=== PATIENT | female | born 2000 | race Caucasian/White ===

== ENCOUNTER 2020-10-13 22:19 | Emergency (ER) | payer MEDICAID, OTHER ==
[~2020-10-13] VITALS: Ht 152.4 cm; Wt 90.9 kg
[2020-10-13] MEDS ORDERED: JUNETAB PO (22:29)
[2020-10-13] MEDS ORDERED: LATU120T PO (22:29)
[2020-10-13] MEDS ORDERED: HYDR1TAB33 PO (22:29)
[2020-10-13] MEDS ORDERED: LEVO50TA5 PO (22:29)
[2020-10-13] MEDS ORDERED: DIAZ5TAB PO (22:29)
[2020-10-13] MEDS ORDERED: VENL75TA2 PO (22:29)
[2020-10-13] MEDS ORDERED: GLIP5TAB20 PO (22:29)
[2020-10-13] MEDS ORDERED: LOPI600T PO (22:29)
[2020-10-13] MEDS ORDERED: ABIL1TAB13 PO (22:29)
[2020-10-13 23:05] LABS: HEMATOCRIT 40.6 % (36.0-47.0); HEMOGLOBIN 12.9 g/dl (12.0-15.5); MEAN CORPUSCULAR HEMOGLOBIN 29.1 pg (27.0-33.0); MEAN CORPUSCULAR HGB CONC 31.8 g/dl (32.0-36.5); MEAN CORPUSCULAR VOLUME 91.6 fl (80.0-96.0); PLATELET COUNT, AUTOMATED 441 10^3/uL (150-450); RED BLOOD COUNT 4.43 10^6/uL (4.00-5.40); WHITE BLOOD COUNT 9.8 10^3/uL (4.0-10.0)
[2020-10-13 23:24] LABS: ATYPICAL LYMPH 4 % (0-5); BASOPHILS 1 % (0-1); EOSINOPHILS 3 % (0-3); LYMPHOCYTES 33 % (16-44); MONOCYTES 6 % (0-5); NEUTROPHILS 53 % (28-66); PLATELET ESTIMATE INCREASED (NORMAL)
[2020-10-13] MEDS ORDERED: GI COCKTAIL 50ML BTL(HYOSCYAMINE/MAALOX/LIDOCAINE VISCOUS)(1:3:1) PO ONE (23:30)
[2020-10-13] MEDS ORDERED: ONDANSETRON 4MG/2ML VIAL IV ONE (23:30)
[2020-10-13] MEDS ORDERED: NS 1,000 ML IV ONE (23:30)
[2020-10-13 23:34] LABS: ALBUMIN 4.2 GM/DL (3.2-5.2); ALT/SGPT 95 U/L (12-78); BILIRUBIN,DIRECT 0.2 MG/DL (0.0-0.2); BILIRUBIN,TOTAL 0.5 MG/DL (0.2-1.0); LIPASE 145 U/L (73-393); TOTAL PROTEIN 8.1 GM/DL (6.4-8.2)
--- NOTE | 2020-10-14 01:37 | REPVR ---
PROCEDURE INFORMATION: Exam: XR Abdomen Exam date and time: 10/14/2020 1:05 AM Age: 20 years old Clinical indication: Other: Luq pain TECHNIQUE: Imaging protocol: XR of the abdomen. Views: Frontal supine view of the abdomen. 1 View. COMPARISON: CT ABD PELVIS W/O CONTRAST 09/25/2015 2:33 AM FINDINGS: Gastrointestinal tract: Normal. No bowel dilation. Bones/joints: Unremarkable. IMPRESSION: No acute findings. Electronically signed by: Duncan Torrez On 10/14/2020 01:37:38 AM
[2020-10-14] MEDS ORDERED: PROM25TA12 PO (01:54)
--- NOTE | 2020-10-14 02:03 | REPVR ---
PROCEDURE INFORMATION: Exam: US Abdomen, Limited; Right Upper Quadrant Exam date and time: 10/13/2020 1:23 AM Age: 20 years old Clinical indication: Abdominal pain; Flank; Right upper quadrant (ruq); Additional info: Upper abd pain, post prandial. Elevated lfts TECHNIQUE: Imaging protocol: US abdomen. Real time ultrasound with image documentation. Limited exam focused on the right upper quadrant. COMPARISON: CR Abdomen,Flat Plate KUB 10/13/2020 11:41 PM FINDINGS: Liver: Fatty infiltration of the liver. Liver measures approximately 27 cm in the midclavicular plane. Gallbladder: Unremarkable gallbladder. No gallstones. No gallbladder wall thickening. Common bile duct: CBD measures 3.7 mm in caliber. Pancreas: Visualized pancreas is unremarkable. Right kidney: Right kidney measures 12.5 cm in length. No right hydronephrosis. Normal echogenicity. IMPRESSION: 1. Unremarkable gallbladder. 2. Fatty infiltration of the liver. 3. Hepatomegaly. Electronically signed by: Duncan Torrez On 10/14/2020 02:03:30 AM
[2020-10-14 02:06] VITALS: BP 117/72
[2020-10-15 10:53] LABS: HEPATITIS B SURFACE ANTIGEN NEGATIVE (NEGATIVE)
[2020-10-15 11:21] LABS: HEPATITIS C VIRUS ABY INDEX < 0.0 INDEX (<0.8)
[2020-10-15 11:22] LABS: HEPATITIS B CORE ANTIBODY IGM NEGATIVE (NEGATIVE)
[2020-10-15 12:24] LABS: HEPATITIS A ANTIBODY IGM NEGATIVE (NEGATIVE)
== END 2020-10-14 02:09 | disposition home or self-care (01) ==
LOC: M ED 22:19
DX: R16.0 Hepatomegaly, not elsewhere classified (principal); K76.0 Fatty (change of) liver, not elsewhere classified; R11.2 Nausea with vomiting, unspecified; K21.9 Gastro-esophageal reflux disease without esophagitis; E07.9 Disorder of thyroid, unspecified; F60.3 Borderline personality disorder; F17.200 Nicotine dependence, unspecified, uncomplicated
CPT/HCPCS: 74018; 76705; 80047; 80076; 83690; 84702; 85025; 86705; 86709; 86803; 87340; 96361; 96374; 99284; J2405

== ENCOUNTER 2020-10-19 21:34 | Emergency (ER) | payer OTHER ==
[~2020-10-19] VITALS: Ht 152.4 cm; Wt 91.0 kg
[~2020-10-19 21:34] MED LIST: ABIL1TAB13 PO; DIAZ5TAB PO; GLIP5TAB20 PO; HYDR1TAB33 PO; JUNETAB PO; LATU120T PO; LEVO50TA5 PO; LOPI600T PO; PROM25TA12 PO; VENL75TA2 PO
[2020-10-19 21:35] VITALS: BP 114/67
== END 2020-10-20 00:16 | disposition left against medical advice (07) ==
LOC: M ED 21:34
DX: Z53.21 Procedure and treatment not carried out due to patient leaving prior to being seen by health care provider (principal)

== ENCOUNTER 2020-10-22 19:29 | Emergency (ER) | payer OTHER ==
[~2020-10-22] VITALS: Ht 152.4 cm; Wt 90.1 kg
[2020-10-22] MEDS ORDERED: PANTOPRAZOLE 40MG VIAL (C9113 PER 1) IV ONE (22:20)
[2020-10-22] MEDS ORDERED: GI COCKTAIL 50ML BTL(HYOSCYAMINE/MAALOX/LIDOCAINE VISCOUS)(1:3:1) PO ONE (22:20)
[2020-10-22] MEDS ORDERED: NS 1,000 ML IV ONE (22:20)
[2020-10-22] MEDS ORDERED: ONDANSETRON 4MG/2ML VIAL IV ONE (22:20)
[2020-10-22 22:44] LABS: BASO # 0.1 10^3/uL (0.0-0.2); BASO % 0.5 % (0.0-1.0); EOS # 0.2 10^3/uL (0.0-0.5); HEMATOCRIT 39.7 % (36.0-47.0); HEMOGLOBIN 12.8 g/dl (12.0-15.5); LYMPH % 47.6 % (24.0-44.0); MEAN CORPUSCULAR HEMOGLOBIN 29.7 pg (27.0-33.0); MEAN CORPUSCULAR HGB CONC 32.2 g/dl (32.0-36.5); MEAN CORPUSCULAR VOLUME 92.1 fl (80.0-96.0); MONO # 0.6 10^3/uL (0.0-0.8); MONO % 6.1 % (2.0-8.0); NEUTROPHILS # 4.6 10^3/uL (1.5-8.5); NEUTROPHILS % 43.4 % (36.0-66.0); PLATELET COUNT, AUTOMATED 446 10^3/uL (150-450); RED BLOOD COUNT 4.31 10^6/uL (4.00-5.40); WHITE BLOOD COUNT 10.5 10^3/uL (4.0-10.0)
[2020-10-22 23:12] LABS: BILIRUBIN,DIRECT 0.1 MG/DL (0.0-0.2); BILIRUBIN,TOTAL 0.3 MG/DL (0.2-1.0); TOTAL PROTEIN 7.9 GM/DL (6.4-8.2)
[2020-10-22 23:42] LABS: HEMOGLOBIN A1c 7.2 %
[2020-10-23] MEDS ORDERED: KETOROLAC 30 MG/ML 1ML VIAL IV ONE
--- NOTE | 2020-10-23 00:33 | REPVR ---
PROCEDURE INFORMATION: Exam: US Abdomen, Limited; Right Upper Quadrant Exam date and time: 10/22/2020 11:44 PM Age: 20 years old Clinical indication: Abdominal pain; Colic; Additional info: Post prandial nausea and vomiting TECHNIQUE: Imaging protocol: US abdomen. Real time ultrasound with image documentation. Limited exam focused on the right upper quadrant. COMPARISON: 1. GALLBLADDER US 10/14/2020 1:[address] ABD PELVIS W/O CONTRAST 09/25/2015 2:33:20 AM FINDINGS: Liver: The echogenicity of the liver is increased, which is compatible with fatty liver infiltration. No liver lesion is identified from the images obtained. The contour of the liver is smooth. Gallbladder: The gallbladder is normal in appearance. No stones, masses, gallbladder wall thickening, or pericholecystic fluid are noted. No sonographic Boggs's sign was reported by the certified neurodiagnostic technologist. Common bile duct: The common bile duct is normal in caliber and at the level of the jamie hepatis measures 4 mm. Pancreas: The imaged portion of the pancreas is unremarkable. The tail of pancreas is obscured by gas in the stomach and bowel. Right kidney: The right kidney is normal in appearance and measures 12.8 cm in length. There is no renal cortical thinning. The renal cortical echogenicity is within normal limits. No renal lesion is seen. There is no hydronephrosis. No obvious stones are seen in the renal collecting system. Intraperitoneal space: No free fluid is seen from the images obtained. IMPRESSION: 1. Normal gallbladder. 2. Fatty liver. 3. No right hydronephrosis. Electronically signed by: Jose Romo On 10/23/2020 00:34:20 AM
[2020-10-23] MEDS ORDERED: ONDA4TAB6 PO (00:34)
[2020-10-23] MEDS ORDERED: KETO10TAB PO (00:34)
[2020-10-23 00:41] VITALS: BP 111/55
== END 2020-10-23 00:50 | disposition home or self-care (01) ==
LOC: M ED 19:29
DX: R11.2 Nausea with vomiting, unspecified (principal); R10.13 Epigastric pain; E11.9 Type 2 diabetes mellitus without complications; K21.9 Gastro-esophageal reflux disease without esophagitis; J45.909 Unspecified asthma, uncomplicated; E03.9 Hypothyroidism, unspecified; K76.0 Fatty (change of) liver, not elsewhere classified; Z79.84 Long term (current) use of oral hypoglycemic drugs; Z79.3 Long term (current) use of hormonal contraceptives; Z79.899 Other long term (current) drug therapy
CPT/HCPCS: 76705; 80047; 80076; 81001; 83036; 83690; 84702; 85025; 96361; 96374; 96375; 99284; C9113; J1885; J2405

== ENCOUNTER → 2021-02-22 | Outpatient (REF) | payer OTHER ==
[~2021-02-22] MED LIST changes: +KETO10TAB PO; +ONDA4TAB6 PO
== END ==
LOC: M WUC 19:52
PROVIDERS: ATTEND Physician Assistant
DX: R10.84 Generalized abdominal pain (principal)

== ENCOUNTER 2021-05-20 15:27 | Emergency (ER) | payer OTHER ==
[~2021-05-20] VITALS: Ht 152.4 cm; Wt 84.1 kg
--- OUTSIDE RECORDS SUMMARY | 2021-05-20 15:38 | CCD ---
Author Author [facility] Organization [facility] Address [address] [place], [place] [id number] Phone Care Team Providers Care Ecommerce Marketing Specialist Name Role Phone HAROLDO ZACARIAS Unavailable Allergies, Adverse Reactions, Alerts No Known Drug Allerg ies 09/27/2020 Medications * Continue: * HAROLDO BELTRAN * Zofran 4 mg tablet , Take 1 tablet orally Three times a day NEEDED 03/08/2021 * Discontinued: * WINDY LONDON LPN * LaMICtaL 100 mg tablet 03/08/2021 * Latuda 120 mg tablet 03/08/2021 * metFORMIN 500 mg tablet 03/08/2021 * gabapentin 600 mg tablet 03/08/2021 * naproxen 375 mg tablet 03/08/2021 * cyclobenzaprine 5 mg tablet 03/08/2021 * Pre-existing: * Valium 10 mg tablet * levothyroxine 75 mcg tablet * glipiZIDE ER 10 mg tablet, extended release 24 hr Problems Addressed During This Encounter Unspecified abdominal pain (R10.9) 2020 Contact with and (suspected) exposure to other viral communicable diseases (Z20.828) 03/08/2021 Nausea with vomiting, unspecified (R11.2 ) 03/08/2021 Diarrhea, unspecified (R19.7) 03/08/2021 Resolved: Nausea (R11.0) 03/08/2021 Myalgia, unspecified site (M79.10) 03/08/2021 Encounter for observation for suspected exposure to other biological agents ruled out (Z03.818) 03/08/2021 Low back pain (M54.5) 03/08/2021 Results Leukocytes: Trace 09/27/2020 Nitrite: Negative 09/27/2020 Urobilinogen: Negative 09/27/2020 Protein: Trace 09/27/2020 pH: 6.0 09/27/2020 Blood (Urine): Negative 09/27/2020 Specific [place]: 1.015 09/27/2020 Ketone: Negative 09/27/2020 Bilirubin: Negative 09/27/2020 Glucose: Negative 09/27/2020 WBC: 8.9 10*3/uL 09/27/2020 RBC: 4.22 10*6/uL 09/27/2020 HGB: 12.8 g/dL 09/27/2020 HCT: 37 % 09/27/2020 MCV: 87.8 fL 09/27/2020 MCH: 30.4 pg 09/27/2020 MCHC: 34.6 g/dL 09/27/2020 RDW: 12.4 % 09/27/2020 PLT: 429 10*3/uL 09/27/2020 MPV: 9.2 fL 09/27/2020 NEUT %: 49.1 % 09/27/2020 LYMPH %: 42.3 % 09/27/2020 MONO %: 5.6 % 09/27/2020 EOS %: 2.3 % 09/27/2020 BASO %: 0.7 % 09/27/2020 NEUT #: 4.4 10*3/uL 09/27/2020 LYMPH #: 3.8 10*3/uL 09/27/2020 MONO #: 0.5 10*3/uL 09/27/2020 EOS #: 0.2 10*3/uL 09/27/2020 BASO #: 0.1 10*3/uL 09/27/2020 SODIUM: 133 mmol/L 09/27/2020 Potassium: 4.6 mmol/L 09/27/2020 CHLORIDE: 100 mmol/L 09/27/2020 CO2: 23 mmol/L 09/27/2020 ANION GAP: 10 mmol/L 09/27/2020 UREA NITROGEN: 7 mg/dL 09/27/2020 Creatinine: 0.67 mg/dL 09/27/2020 BUN/CREAT RATIO: 10.4 RATIO 09/27/2020 Glucose: 200 mg/dL 09/27/2020 CALCIUM: 9.6 mg/dL 09/27/2020 TOTAL PROTEIN: 7.7 g/dL 09/27/2020 ALBUMIN: 3.8 g/dL 09/27/2020 GLOBULIN: 3.9 g/dL 09/27/2020 ALB/GLOB RATIO: 1 RATIO 09/27/2020 ALKALINE PHOSPHATASE: 82 U/L 09/27/2020 BILIRUBIN,TOTAL: 0.3 mg/dL 09/27/2020 AST (SGOT): 86 U/L 09/27/2020 ALT (SGPT): 88 U/L 09/27/2020 GFR : >60 09/27/2020 GFR ( AMER): >60 09/27/2020 CK: 67 U/L 09/27/2020 LIPASE: 123 U/L 09/27/2020 Chief Complaint Patient was screened for Covid 19 is neg ative by PCRExam is nonrevealingMedicated with Zofran and symptoms improved significantlyTaking fluids wellWe will get labsIf abnormal consider gallbladder ultrasoundCollect stool sample and send for analysis nausea and vominting Nonspecific symptomsElevated blood sugar Urinalysis is as notedEKG is nondiagnosticChest x-ray negativeLabs obtainedUrine culture sentCovid test negativeFlu test negativeHas an appointment with primary care on ThursdayThe low back pain certainly could be unrelated so I have ordered naproxen and FlexerilShe will return here or go to the hospital for any worsening symptoms hx of dm,blurry vision,back ache,pain do wn back of left leg Procedures Performed and Ordered Today * URINALYSIS NONAUTO W/O SCOPE 09/27/2020 * INFLUENZA ASSAY W/OPTIC 09/27/2020 * INFECTIOUS AGENT ANTIGEN DETECTION 09/27/2020 * ECG COMPLETE 09/27/2020 * ROUTINE VENIPUNCTURE 09/27/2020 * COVID PCR 03/08/2021 * INFECTIOUS AGENT DETECTION COMPLETED WITHIN 2 DAYS 03/08/2021 * ROUTINE VENIPUNCTURE 03/08/2021 * * Lab: Collected Date 09/27/2020 1533 09/27/2020 CBCDIFF 09/27/2020 CMP 09/27/2020 LIPASE 09/27/2020 ASSAY CK (CPK) 09/27/2020 URINE CULTURE 09/27/2020 GLUCOSE BLOOD TEST 09/27/2020 Collected Date 03/08/2021 1800 03/08/2021 CBCDIFF 03/08/2021 CMP 03/08/2021 LIPASE 03/08/2021 Collected Date 03/08/2021 C. DIFF TOXIN B BY PCR 03/08/2021 ENTERIC PATHOGENS BY 03/08/2021 GIARD/CRYPTOSP EXAM OAPEIA 03/08/2021 Imaging: CHEST XRAY 2 VIEW 09/27/2020 Injection: ONDANSETRON ORAL 4MG 03/08/2021 Vital signs Body Temperature: Heart Rate: Respiratory Rate: BP: Height: Weight: BMI: O2 Percentage BldC Oximetry : Inhaled Oxygen Concentration: 97.6F 03/08/2021 100 beats per minute 03/08/2021 18 breaths per minute 03/08/2021 116/7 0 mmHg 03/08/2021 5ft 03/08/2021 198lbs 03/08/2021 38.665 03/08/2021 97% 03/08/2021 21% 03/08/2021 Immunizations Social History Smoking Status: Never smoker. 03/08/2021 Reason for Referral Functional Status Plan of Treatment Procedures Scheduled: Collected Date 03/08/2021 CBCDIFF 03/08/2021 CMP 03/08/2021 LIPASE 03/08/2021 Collected Date 03/08/2021 C. DIFF TOXIN B BY PCR 03/08/2021 ENTERIC PATHOGENS BY 03/08/2021 GIARD/CRYPTOSP EXAM OAPEIA 03/08/2021 Appointments Sched ed: September, 3:00 PM, HAROLDO BELTRAN Monday, March 08, 2021, 11:10 PM, Visits Covid Instructions: BRAT diet includes: Bananas, Rice, Apple Sauce, Bowler <Follow up with primary care> We will call with lab and/or xray results If your symptoms worsen, go to the Emergency Room. <Follow up with primary care> We will call with lab and/or xray results If your symptoms worsen, go to the Emergency Room. Payers Insurance Policy Type Po licy ID Relation Subscriber Expi ration [facility] [employer] C ommercial Insurance [id number] Self CED BAH [facility] Commercial Insurance [id number] Self CED BAH 09/03/2020 Encounters OFFICE/OUTPATIENT SIT, EST 03/08/2021 Diagnoses Contact with and (suspected) exposure to other viral communicable diseases Nausea with vomiting, unspecified Diarrhea, unspecified Unspecified abdominal pain OFFICE/OUTPATIENT SIT, NEW 09/27/2020 Diagnoses Unspecified abdominal pain Nausea Myalgia, unspecified site Encounter for observation for suspected exposure to other biological agents ruled out Low back pain
--- OUTSIDE RECORDS SUMMARY | 2021-05-20 15:38 | CCD | Continuity of Care Document ---
Author Author Antonella MINA MD Organization Unknown Address [address] [facility], [address] [place] [address] Phone [phone] Care Team Providers Care Release Engineer Name Role Phone Misael Patel MD AUTM [phone] Edward Mina MD AUTM [phone] Problems Active Problems Provider Date Anxiety Onset: Moderate recurrent major depression Sinan Garnica MD Onse t: 11/07/2019 Body mass index 30+ - obesity Edward Mina MD Onset: 01/2020 Glycosuria Edward Mina MD Onset: 06/20/2020 Type 2 diabetes mellitus Edward Mina MD Onset: 07/03/20 20 Hypothyroidism Edward Mina MD Onset: 07/03/2020 Abnormal liver function Edward Mina MD Onset: 0 Hyperlipidemia Edward Mina MD Onset: 07/03/2020 Adult health examination Edward Mina MD Onset: 10/17/19 21 Gastritis Edward Mina MD Onset: 10/24/2020 Social History Type Date Description Comments Sex Unknown ETOH Use Denies alcohol use Tobacco Use Start: Unknown End: Unknown Patient is a former smoker Recreational Drug Use Denies Drug Use Smoking Status Reviewed: 09/26/19 Patient is a former smoker Exercise Type/Frequency Does not exercise Allergies, Adverse Reactions, Alerts Description No Known Drug Allergies Medications Active Medications SIG Qnty Indications Ordering Provide r Date Levothyroxine Sodium 75mcg Capsule s 1 daily 30caps Edward Mina MD 12/25/2020 Glipizide ER 10mg Tablets ER 24HR 1 tablet b.i.d. 60tabs E11.9 Edward Mina MD 12/25/2020 Onetouch Ultrasoft Lancets Misc test twice a day 200units Edward Mina MD 07/03/2020 Onetouch Ultra Strips test twice a day 150units E11.9 Edward Mina MD 07/03/2020 Onetouch Ultra 2 w/Device Kit as directed 1units Edward Mina MD 07/03/2020 June07/25 1-20mg-mcg Tablets daily Unknown 12/09/2018 Multi Vitamin Daily Tablets 1 by mouth every day Unknown Valium 5mg Tablets Take 0.5mg (2.5mg total) by mouth 2 times daily Edward Mina MD History Medications Glipizide 10mg Tablets 1 by mouth Once a day for diabetic control E11.9 Edward Mina MD 12/05 - 12/25/2020 Risperidone 1mg Tablets 1 tab 2 times Daily 30tabs Edward Mina MD 12/25/2020 - 04/03/2021 Pantoprazole Sodium 40mg Tablets D R 1 by mouth In the morning and at night for 1 month then p.r.n. 60tabs K2 9.70 Edward Mina MD 10/24/2020 - 04/03/2021 Immunizations CPT Code Status Date Vaccine Lot # [id number] Given 04/05/2019 Influenza 36 Mos And Older Vital Signs Date Vital Result Comment 04/03/2021 1:40pm BP Systolic 102 mmHg BP Diastolic 80 mmHg Heart Rate 111 /min Body Temperature 97.0 F Height 60 inches 5'0" Weight 188.38 lb Weight 85.447 kg [place] Body Weight 100 lb BMI (Body Mass Index) 36.8 kg/m2 O2 % BldC Oximetry 98 % Pain Level 0 12/25/2020 8:59am BP Systolic 112 mmHg BP Diastolic 74 mmHg Heart Rate 102 /min Body Temperature 97.9 F Height 60 inches 5'0" Weight 197.12 lb Weight 89.416 kg [place] Body Weight 100 lb BMI (Body Mass Index) 38.5 kg/m2 O2 % BldC Oximetry 98 % Pain Level 4 Results Test Acquired Date Facility Test Result H/L Range Note Xray 04/03/[address] [place] [address] [phone] CT Abdomen W Contrast <pending> Laboratory test finding 03/13/[address] [phone] Glycosylated Hgba1c 7.4 % High 4.1-6.5 1 H Pylori AB G/A/M Serum 03/13/[address] [phone] H pylori IgG Ab,S 0.10 0.00-0.79 2 H pylori IgA Ab,S <9.0 units 0.0-8.9 3 H pylori IgM Ab,S <9.0 units 0.0-8.9 4 Celiac Disease Comprehensive 03/13/[address] [phone] Gliadin(Deam) Ab,IgA,S 2 units 0-19 5 Gliadin(Deam) Ab IgG,S 1 units 0-19 6 tTransglutaminase IgA,S <2 U/mL 0-3 7 tTransglutaminase IgG,S <2 U/mL 0-5 8 Endomysial Ab, IgA,S Negative Negative IgA, Qn,S 93 mg/dL 87-352 Laboratory test finding 03/13/[address] [phone] TSH 2.926 uIU/ML Normal 0.470-4.200 9 CBC W/Auto Diff 03/13/[address] [phone] White Blood Count 8.58 10^3/uL Normal 4.00-10.50 Red Blood Count 4.65 10^6/uL Normal 3.90-5.20 Hemoglobin 13.7 g/dL Normal 11.5-15.6 Hematocrit 42.2 % Normal 35.0-46.0 MCV 90.8 FL Normal 80.0-100.0 MCH 29.5 pg Normal 27.0-34.0 MCHC 32.5 g/dL Normal 32-36 RDW 11.9 % Normal 11.5-14.5 Platelet Count 414 10^3/uL High 130-400 MPV 11.3 FL Normal 8.7-13.2 Gran % (Auto) 47.5 % Normal 42.0-75.0 Lymph % (Auto) 45.3 % Normal 20.0-51.0 [place] % (Auto) 4.3 % Normal 2.0-15.0 Eos % (Auto) 2.3 % Normal 0.0-11.0 Baso % (Auto) 0.3 % Normal 0.0-2.0 Ig % (Auto) 0.3 % 1.00-5.00 Ig # (Auto) 0.0 10^3/uL <0.5 Gran # (Auto) 4.06 10^3/uL Normal 1.50-6.50 Lymph # (Auto) 3.9 k/uL Normal 1.0-5.0 [place] # (Auto) 0.37 k/uL Normal 0.20-1.50 Eos # (Auto) 0.20 10^3/uL Normal 0.00-1.10 Baso # (Auto) 0.03 10^3/uL Normal 0.00-0.20 Lipid Panel 03/13/[address] [phone] Triglycerides 454 mg/dL High 45-150 Cholesterol 358 mg/dL High 125-200 LDL Cholesterol TNP mg/dL 50-130 10 HDL Cholesterol 40 mg/dL Normal 32-96 Chol/HDL Ratio TNP 0-4.3 11 CMP W GFR 03/13/[address] [phone] Sodium 140 mEq/L Normal 135-145 Potassium 4.1 mEq/L Normal 3.5-5.3 Chloride 101 mEq/L Normal 94-110 Carbon Dioxide 27 mEq/L Normal 22-33 Anion Gap 16 Normal 5-16 Blood Urea Nitro 6 mg/dL Low 7-25 Creatinine 0.6 mg/dL Normal 0.6-1.4 GFR > 90.0 mL/min 12 BUN/Creat Ratio 10 Normal 8-36 Glucose 125 mg/dL High 70-100 CA 10.4 mg/dL Normal 8.7-10.5 Bilirubin,Total 0.4 mg/dL Normal 0.1-1.3 Ast 253 U/L High 5-40 Alt 193 U/L High 5-48 Alkaline Phosphatase 101 U/L Normal 40-140 Total Protein 7.9 g/dL Normal 5.9-8.3 Albumin 5.2 g/dL High 3.0-5.1 Globulin 2.7 g/dL Normal 1.5-3.5 Alb/Glob Ratio 1.9 g/dL Normal 1.0-3.0 Urinalysis 03/13/[address] [phone] Color,Ur YELLOW Yellow Appearance,Ur CLEAR Clear PH,Ur 6.0 5.0-8.0 Specific [place],Ur 1.008 Normal 1.002-1.035 Protein,Ur NEGATIVE mg/dL Negative Glucose, Ur NEGATIVE mg/dL Negative Ketones,Ur TRACE mg/dL Negative Occult Blood,Ur NEGATIVE Negative Nitrate,Ur NEGATIVE Negative Leukocyte Esterase ,Ur NEGATIVE Negative Bilirubin,Ur NEGATIVE Negative Urobilinogen,Ur 0.2-1.0 EUMG/DL Neg-0-1.0 Free T4 And Total T4 03/13/[address] [phone] Free T4 (Free Thyroxine) 1.48 ng/dL Normal 0.76-1. 78 T4 (Thyroxine) 18.2 g/dL High 4.5-10.9 Laboratory test finding 11/27/[address] [phone] Covid 19 Rheonix NOT-DETECTED Notdetected 13 CMP W GFR 11/27/[address] [phone] Sodium 135 mEq/L Normal 135-145 Potassium 4.1 mEq/L Normal 3.5-5.3 Chloride 101 mEq/L Normal 94-110 Carbon Dioxide 26 mEq/L Normal 22-33 Anion Gap 12 Normal 5-16 Blood Urea Nitro 14 mg/dL Normal 7-25 Creatinine 0.8 mg/dL Normal 0.6-1.4 GFR > 90.0 mL/min 14 BUN/Creat Ratio 17 Normal 8-36 Glucose 235 mg/dL High 70-100 CA 10.2 mg/dL Normal 8.7-10.5 Bilirubin,Total 0.4 mg/dL Normal 0.1-1.3 Ast 136 U/L High 5-40 Alt 151 U/L High 5-48 Alkaline Phosphatase 102 U/L Normal 40-140 Total Protein 7.7 g/dL Normal 5.9-8.3 Albumin 5.7 g/dL High 3.0-5.1 Globulin 2.0 g/dL Normal 1.5-3.5 Alb/Glob Ratio 2.9 g/dL Normal 1.0-3.0 CBC W/Auto Diff 11/27/[address] [phone] White Blood Count 15.77 10^3/uL High 4.00-10.50 Red Blood Count 4.79 10^6/uL Normal 3.90-5.20 Hemoglobin 14.1 g/dL Normal 11.5-15.6 Hematocrit 43.5 % Normal 35.0-46.0 MCV 90.8 FL Normal 80.0-100.0 MCH 29.4 pg Normal 27.0-34.0 MCHC 32.4 g/dL Normal 32-36 RDW 12.2 % Normal 11.5-14.5 Platelet Count 498 10^3/uL High 130-400 MPV 11.2 FL Normal 8.7-13.2 Gran % (Auto) 71.5 % Normal 42.0-75.0 Lymph % (Auto) 23.7 % Normal 20.0-51.0 [place] % (Auto) 3.7 % Normal 2.0-15.0 Eos % (Auto) 0.1 % Normal 0.0-11.0 Baso % (Auto) 0.4 % Normal 0.0-2.0 Ig % (Auto) 0.6 % 1.00-5.00 Ig # (Auto) 0.1 10^3/uL <0.5 Gran # (Auto) 11.28 10^3/uL High 1.50-6.50 Lymph # (Auto) 3.7 k/uL Normal 1.0-5.0 [place] # (Auto) 0.58 k/uL Normal 0.20-1.50 Eos # (Auto) 0.02 10^3/uL Normal 0.00-1.10 Baso # (Auto) 0.06 10^3/uL Normal 0.00-0.20 Laboratory test finding 11/27/[address] [phone] [place] 0.6 mEq/L Normal 0.5-1.5 Emergency Drug Screen 11/27/[address] [phone] Opiate Screen NEG Negative 15 Barbiturate Screen NEG Negative 16 Phencyclidine Screen NEG Negative 17 Amphetamine Screen NEG Negative 18 Benzodiazepine Screen POS Negative 19 Cocaine Screen NEG Negative 20 Cannabinoid Screen NEG Negative 21 Heroin Screen NEG Negative 22 Urinalysis 11/27/[address] [phone] Color,Ur YELLOW Yellow Appearance,Ur CLEAR Clear PH,Ur 6.0 5.0-8.0 Specific [place],Ur 1.016 Normal 1.002-1.035 Protein,Ur NEGATIVE mg/dL Negative Glucose, Ur NEGATIVE mg/dL Negative Ketones,Ur NEGATIVE mg/dL Negative Occult Blood,Ur NEGATIVE Negative Nitrate,Ur NEGATIVE Negative Leukocyte Esterase ,Ur NEGATIVE Negative Bilirubin,Ur NEGATIVE Negative Urobilinogen,Ur 0.2-1.0 EUMG/DL Neg-0-1.0 Respiratory PNL Covid Only 11/14/[address] [phone] Adenovirus Not Detected NotDetected Coronavirus 229E Not Detected NotDetected 23 Coronavirus Hku1 Not Detected NotDetected 24 Coronavirus NL63 Not Detected NotDetected 25 Coronavirus Oc43 Not Detected NotDetected 26 Human Metapneumovirus Not Detected NotDetected Human Rhinovirus/ENT Not Detected NotDetected Influenza A Not Detected NotDetected Influenza B Not Detected NotDetected Parainfluenza Virus 1 Not Detected NotDetected Parainfluenza Virus 2 Not Detected NotDetected Parainfluenza Virus 3 Not Detected NotDetected Parainfluenza Virus 4 Not Detected NotDetected Respiratory Syncy Vir Not Detected NotDetected Bordetella Parapertus Not Detected NotDetected Bordetella Pertussis Not Detected NotDetected Chlamydia Pneumoniae Not Detected NotDetected Mycoplasma Pneumoniae Not Detected NotDetected 27 Coronavirus 2 (Sars-CoV-2) NOT-DETECTED Notdetected 28 CBC W/Auto Diff 11/14/[address] [phone] White Blood Count 10.21 10^3/uL Normal 4.00-10.50 Red Blood Count 4.60 10^6/uL Normal 3.90-5.20 Hemoglobin 13.4 g/dL Normal 11.5-15.6 Hematocrit 41.4 % Normal 35.0-46.0 MCV 90.0 FL Normal 80.0-100.0 MCH 29.1 pg Normal 27.0-34.0 MCHC 32.4 g/dL Normal 32-36 RDW 13.2 % Normal 11.5-14.5 Platelet Count 429 10^3/uL High 130-400 MPV 10.6 FL Normal 8.7-13.2 Gran % (Auto) 61.5 % Normal 42.0-75.0 Lymph % (Auto) 30.7 % Normal 20.0-51.0 [place] % (Auto) 4.5 % Normal 2.0-15.0 Eos % (Auto) 2.4 % Normal 0.0-11.0 Baso % (Auto) 0.4 % Normal 0.0-2.0 Ig % (Auto) 0.5 % 1.00-5.00 Ig # (Auto) 0.1 10^3/uL <0.5 Gran # (Auto) 6.29 10^3/uL Normal 1.50-6.50 Lymph # (Auto) 3.1 k/uL Normal 1.0-5.0 [place] # (Auto) 0.46 k/uL Normal 0.20-1.50 Eos # (Auto) 0.24 10^3/uL Normal 0.00-1.10 Baso # (Auto) 0.04 10^3/uL Normal 0.00-0.20 Laboratory test finding 11/14/[address] [phone] Blood Alcohol < 0.03 % <0.03 29 CMP W GFR 11/14/[address] [phone] Sodium 138 mEq/L Normal 135-145 Potassium 3.8 mEq/L Normal 3.5-5.3 Chloride 104 mEq/L Normal 94-110 Carbon Dioxide 25 mEq/L Normal 22-33 Anion Gap 13 Normal 5-16 Blood Urea Nitro 9 mg/dL Normal 7-25 Creatinine 0.7 mg/dL Normal 0.6-1.4 GFR > 90.0 mL/min 30 BUN/Creat Ratio 12 Normal 8-36 Glucose 222 mg/dL High 70-100 CA 9.9 mg/dL Normal 8.7-10.5 Bilirubin,Total 0.4 mg/dL Normal 0.1-1.3 Ast 205 U/L High 5-40 Alt 170 U/L High 5-48 Alkaline Phosphatase 104 U/L Normal 40-140 Total Protein 7.1 g/dL Normal 5.9-8.3 Albumin 5.2 g/dL High 3.0-5.1 Globulin 1.9 g/dL Normal 1.5-3.5 Alb/Glob Ratio 2.7 g/dL Normal 1.0-3.0 Laboratory test finding 11/14/[address] [phone] Salicylate < 3.0 mg/dL Normal 2.8-20.0 31 Acetaminophen < 2.0 UG/ML Low 10-30 32 Lipid Panel 11/14/[address] [phone] Triglycerides 522 mg/dL High 45-150 Cholesterol 376 mg/dL High 125-200 LDL Cholesterol TNP mg/dL 50-130 33 HDL Cholesterol 42 mg/dL Normal 32-96 Chol/HDL Ratio TNP 0-4.3 34 Laboratory test finding 11/14/[address] [phone] Folate 13.05 NG/ML Normal 3.40-24.00 35 Vitamin D,25-Hydroxy 8.8 ng/ml Low 30-100 36 Free T4 (Free Thyroxine) 1.45 ng/dL Normal 0.76-1.78 37 TSH 3.610 uIU/ML Normal 0.470-4.200 38 Glycosylated Hgba1c 7.3 % High 4.1-6.5 39 HP5+Havigm+Hbcigm,S 11/14/[address] [phone] Hepatitis A Antibody, IgM,S Negative Nega tive Hepatitis A Antibody, Total,S Positive Abnormal Negative Hepatitis B Surf Antigen SCRN Negative Negative Hepatitis B Core Antibody,Igm Negative Negative Hep B Core Antibody,Total Negative Negative Hepatitis B Surface Antibody Non Reactive . 40 HCV Ab,S <0.1 s/coratio 0.0-0.9 HCV Comment (SEE NOTE) 41 Laboratory test finding 11/14/[address] [phone] HCG Quantitative < 3 mIU/ml 42 Urinalysis 11/14/[address] [phone] Color,Ur YELLOW Yellow Appearance,Ur CLEAR Clear PH,Ur 6.0 5.0-8.0 Specific [place],Ur 1.009 Normal 1.002-1.035 Protein,Ur NEGATIVE mg/dL Negative Glucose, Ur NEGATIVE mg/dL Negative Ketones,Ur NEGATIVE mg/dL Negative Occult Blood,Ur NEGATIVE Negative Nitrate,Ur NEGATIVE Negative Leukocyte Esterase ,Ur TRACE Abnormal Negative Bilirubin,Ur NEGATIVE Negative Urobilinogen,Ur 0.2-1.0 EUMG/DL Neg-0-1.0 RBC,Ur 3-9 PERHPF Abnormal 0-2 WBC,Ur <5 PERHPF <5 Urine Epith MODERATE PER/LPF Few-Mod Bacteria,Ur RARE PERHPF None Mucus,Ur RARE PERHPF None Seen Laboratory test finding 11/14/[address] [phone] HCG Qualitative Specimen URINE *HCG Qualitative Urine NEGATIVE 43 Emergency Drug Screen 11/14/[address] [phone] Opiate Screen NEG Negative 44 Barbiturate Screen NEG Negative 45 Phencyclidine Screen NEG Negative 46 Amphetamine Screen NEG Negative 47 Benzodiazepine Screen POS Negative 48 Cocaine Screen NEG Negative 49 Cannabinoid Screen POS Negative 50 Heroin Screen NEG Negative 51 1 @Has Patient Fasted For The Past 12 Hours? Yes @Order Comment FASTING 12 HOUR 2 Result Units: Index Value Negative <0.80 Equivocal 0.80 - 0.89 Positive >0.89 3 Negative <9.0 Equivocal 9.0 - 11.0 Positive >11.0 4 Negative <9.0 Equivocal 9.0 - 11.0 Positive >11.0 This test was developed and its performance characteristics determined by [facility]. It has not been cleared or approved by the Food and Drug Administration. Performed at: RN - [facility] [address] [id number] Technical Implementation Lead: Nishi De La Cruz MD, Phone: [phone] 5 Negative 0 - 19 Weak Positive 20 - 30 Moderate to Strong Positive >30 6 Negative 0 - 19 Weak Positive 20 - 30 Moderate to Strong Positive >30 7 Negative 0 - 3 Weak Positive 4 - 10 Positive >10 Tissue Transglutaminase (tTG) has been identified as the endomysial antigen. Studies have demonstr- ated that endomysial IgA antibodies have over 99% specificity for gluten sensitive enteropathy. 8 Negative 0 - 5 Weak Positive 6 - 9 Positive >9 9 Patients should not be teste d for 72 hours post fluorescein dye angiography. A false depression of result may occur. 10 Invalid due to elevated trig lycerides 11 Invalid due to elevated trig lycerides 12 Stage G1 - Normal or high ki dney function The GFR is an estimate of the Glomerular Filtration Rate. It is an aid to assess a patient's renal function. It is not a conclusive diagnosis of kidney disease. GFR normal is >=90 The MDRD GFR calculation is considered valid between the ages of 18 and 75 years only. 13 The [employer] COVID-19 MDx Ass ay is an endpoint RT-PCR assay ([employer])intended for the qualitative detection of nucleic acid from SARS-CoV-2 in nasopharyngeal swabs. COVID testing using the [employer] analyzer was developed for the purpose of diagnostic testing during a declared public health emergency and has Emergency Use Authorization (EUA) from the FDA. The possibility of a false negative result should be considered if the patient's recent exposures or clinical presentation indicate that COVID-19 is likely, and diagnostic tests for other causes of illness (e.g., other respiratory illness) are negative. If COVID-19 is still suspected based on exposure history together with other clinical findings, re-testing should be considered by healthcare providers in consultation with public health authorities. 14 Stage G1 - Normal or high ki dney function The GFR is an estimate of the Glomerular Filtration Rate. It is an aid to assess a patient's renal function. It is not a conclusive diagnosis of kidney disease. GFR normal is >=90 The MDRD GFR calculation is considered valid between the ages of 18 and 75 years only. 15 Minimum Detectable Limit is 300 ng/mL. 16 Minimum Detectable Limit is 300 ng/mL. 17 Minimum Detectable Limit is 25 ng/mL. 18 Minimum Detectable Limit is 1000 mg/mL. 19 Mininum Detectable Limit is 300 ng/mL. 20 Minimum Detectable Limit is 300 ng/mL. 21 Minimum Detectable limit is 50 ng/dL. 22 Minimum Detectable limit is 10 ng/dL. All POSITIVE or BORDER results are unconfirmed. Please contact the laboratory if a reference testing confirmation is needed. 23 This is NOT the novel leon virus COVID-19 24 This is NOT the novel leon virus COVID-19 25 This is NOT the novel leon virus COVID-19 26 This is NOT the novel leon virus COVID-19 27 The Respiratory Panel is a m ultiplexed nucleic acid/PCR test. A negative result does not rule out the presence of PCR inhibitors in the patient sample or assay-specific nucleic acid concentrations below the level of detection by the assay. 28 THIS IS THE NOVEL CORONAVIRU S COVID-19 The [employer] Respiratory Panel is a multiplexed nucleic acid/PCR test. A negative result does not rule out the presence of PCR inhibitors in the patient sample or assay-specific nucleic acid concentrations below the level of detection by the assay. 29 Has Patient Fasted For The P ast 12 Hours? N 30 Stage G1 - Normal or high ki dney function The GFR is an estimate of the Glomerular Filtration Rate. It is an aid to assess a patient's renal function. It is not a conclusive diagnosis of kidney disease. GFR normal is >=90 The MDRD GFR calculation is considered valid between the ages of 18 and 75 years only. 31 Has Patient Fasted For The P ast 12 Hours? N 32 High levels of N-acetylcyste ine (used to treat Acetaminophen overdose) may cause interference and cause a negative bias in the Acetaminophen result. 33 Invalid due to elevated trig lycerides 34 Invalid due to elevated trig lycerides 35 Has Patient Fasted For The P ast 12 Hours? N 36 Vitamin D Status Range Deficiency <20 ng/ml Insufficiency 20-29.9 ng/ml Sufficiency 30-100 ng/ml Toxicity >100 ng/ml Patients should not be tested for 72 hours post fluorescein dye angiography. A false elevation of result may occur. 37 Has Patient Fasted For The P ast 12 Hours? N 38 Patients should not be teste d for 72 hours post fluorescein dye angiography. A false depression of result may occur. 39 Has Patient Fasted For The P ast 12 Hours? N 40 Non Reactive: Inconsistent w ith immunity, less than 10 mIU/mL Reactive: Consistent with immunity, greater than 9.9 mIU/mL 41 Non reactive HCV antibody sc reen is consistent with no HCV infection, unless recent infection is suspected or other evidence exists to indicate HCV infection. Performed at: RN - [facility] [address] [id number] Technical Implementation Lead: Nishi De La Cruz MD, Phone: [phone] 42 Time Post-Conception mIU/mL 7 to 10 days >3 30 days 100 to 500 40 days >200 0 10 weeks 50,0 00 to 140,000 14 weeks 10,0 00 to 50,000 Maximum levels of hCG can be reached by the second to third months following conception. Levels decrease to as low as 6000 by the third trimester. Testing was performed on the [employer] System. The methodology used detects the intact hCG molecule and free beta subunits of the hCG molecule. 43 Reference range is Negative To ensure best sensitivity, first morning void is recommended. Dilute, low specific gravity urine may give a falsely negative result. If is suspected, repeat testing with a new specimen 48-72 hours later. 44 Minimum Detectable Limit is 300 ng/mL. 45 Minimum Detectable Limit is 300 ng/mL. 46 Minimum Detectable Limit is 25 ng/mL. 47 Minimum Detectable Limit is 1000 mg/mL. 48 Mininum Detectable Limit is 300 ng/mL. 49 Minimum Detectable Limit is 300 ng/mL. 50 Minimum Detectable limit is 50 ng/dL. 51 Minimum Detectable limit is 10 ng/dL. All POSITIVE or BORDER results are unconfirmed. Please contact the laboratory if a reference testing confirmation is needed. Procedures Date Code Description Status 04/03/2021 82535 Office/Outpatient Established Mo d MDM 30-39 Min Completed 12/25/2020 76390 Trans Of Care, Hfu W/In 14 Days Of Discharge Completed 10/24/2020 04466 Office/Outpatient Established Mo d MDM 30-39 Min Completed 10/16/2020 G8431 Clinical Depression Screen Docum ented Using Standardized Tools Completed 10/16/2020 00113 Preventive Visit Est 18-39 Yrs C ompleted 10/16/2020 37358 Office/Outpatient Established Mo d MDM 30-39 Min Completed Medical Devices Description No Information Available Encounters Type Date Location Provider Dx Diagnosis [facility] R 10.9 Unspecified abdominal pain K76.89 Other specified diseases of liver E11.9 Type 2 diabetes mellitus wit hout complications E78.5 Hyperlipidemia, unspecified E03.9 Hypothyroidism, unspecified Z13.6 Encounter for screening for cardiovascular disorders Z68.36 Body mass index [BMI] 36.0-3 6.9, adult Office Visit 12/25/2020 9:00a [facility] Zulay Mina MD E 11.9 Type 2 diabetes mellitus without complications Z13.6 Encounter for screening for cardiovascular disorders E03.9 Hypothyroidism, unspecified F33.1 Major depressive disorder, r ecurrent, moderate Z68.38 Body mass index [BMI] 38.0-3 8.9, adult Office Visit 10/24/2020 8:45a [facility] Edward Mina MD K 29.70 Gastritis, unspecified, without bleeding E11.9 Type 2 diabetes mellitus wit hout complications Z13.6 Encounter for screening for cardiovascular disorders Z71.3 Dietary counseling and surve illance Z68.39 Body mass index [BMI] 39.0-3 9.9, adult Office Visit 10/16/2020 2:30p [facility] Edward Mina MD Z 00.01 Encounter for general adult medical exam w abnormal findings Z71.3 Dietary counseling and surve illance E11.9 Type 2 diabetes mellitus wit hout complications Z68.38 Body mass index [BMI] 38.0-3 8.9, adult E03.9 Hypothyroidism, unspecified E78.5 Hyperlipidemia, unspecified E66.9 Obesity, unspecified K76.89 Other specified diseases of liver R10.10 Upper abdominal pain, unspec ified Z13.89 Encounter for screening for other disorder Z13.6 Encounter for screening for cardiovascular disorders Assessments Date Code Description Provider 04/03/2021 R10.9 Unspecified abdominal pain Arsen Mina MD 04/03/2021 K76.89 Abnormal liver function Edward Mina MD 04/03/2021 E11.9 Type 2 diabetes mellitus without complications Edward Mina MD 04/03/2021 E78.5 Hyperlipidemia, unspecified Ehsan Mina MD 04/03/2021 E03.9 Hypothyroidism Edward Mina MD 04/03/2021 Z13.6 Encounter for screening for card iovascular disorders Edward Mina MD 04/03/2021 Z68.36 Body mass index [BMI] 36.0-36.9, adult Edward Mina MD 12/25/2020 E11.9 Type 2 diabetes mellitus without complications Edward Mina MD 12/25/2020 Z13.6 Encounter for screening for card iovascular disorders Edward Mina MD 12/25/2020 E03.9 Hypothyroidism Edward Mina MD 12/25/2020 F33.1 Moderate depression Edward rea MD 12/25/2020 Z68.38 Body mass index [BMI] 38.0-38.9, adult Edward Mina MD 10/24/2020 K29.70 Gastritis Edward Mina MD 10/24/2020 E11.9 Type 2 diabetes mellitus without complications Edward Mina MD 10/24/2020 Z13.6 Encounter for screening for card iovascular disorders Edward Mina MD 10/24/2020 Z71.3 Dietary counseling and surveilla nce Edward Mina MD 10/24/2020 Z68.39 Body mass index [BMI] 39.0-39.9, adult Edward Mina MD 10/16/2020 Z00.01 Adult health examination Rahul Mina MD 10/16/2020 Z71.3 Dietary counseling and surveilla nce Edward Mina MD 10/16/2020 E11.9 Type 2 diabetes mellitus without complications Edward Mina MD 10/16/2020 Z68.38 Body mass index [BMI] 38.0-38.9, adult Edward Mina MD 10/16/2020 E03.9 Hypothyroidism Edward Mina MD 10/16/2020 E78.5 Hyperlipidemia Edward Mina MD 10/16/2020 E66.9 Obesity Edward Mina MD 10/16/2020 K76.89 Abnormal liver function Edward Mina MD 10/16/2020 R10.10 Abdominal pain Edward Mina MD 10/16/2020 Z13.89 Encounter for screening for othe r disorder Edward Mina MD 10/16/2020 Z13.6 Encounter for screening for card iovascular disorders Edward Mina MD Plan of Treatment Future Appointment(s):* 05/08/2021 3:15 pm - Edward Mina MD at [facility] * 10/23/2021 2:15 pm - Edward Mina MD at [facility] 04/03/2021 - Edward Mina MD* R10.9 Unspecified abdominal pain * K76.89 Abnormal liver function* Referral:* MD Yari Lindsey, Gastroenterology * E11.9 Type 2 diabetes mellitus without complications * E78.5 Hyperlipidemia, unspecified * E03.9 Hypothyroidism * Z13.6 Encounter for screening for cardiovascular disorders * Z68.36 Body mass index [BMI] 36.0-36.9, adult * All * Comments:* 30 minutes was spent discussing with patient plan of care more than 50% was spent discussing the problems and treatmentShe will call if any symptoms are worsening Otherwise see her back in 1 month * Follow up:* One month Functional Status Description No Information Available Mental Status Description No Information Available Referrals Refer to Dr Reason for Referral Status Appt Date MD Yari Lindsey 04/03/21 referral for [facility] sub mitted today 12 visits 04/03/21 09/30/21 Very high LFTs rule out biliary disease Sent [address] [place] [id number] [phone] MD Yari Lindsey 10/24-referral sent. appt pen arely. [place] Please advise our office of appt,date,time,provider,NPI. Gastritis. Refer for possible endoscopy and ERCP Scheduled 11/15/[address] [place] [id number] [phone] [facility] Upper abdominal pain Records davis Tovar pending. Sent Gastroenterology [address] [address] [phone]
--- OUTSIDE RECORDS SUMMARY | 2021-05-20 15:38 | CCD | Continuity of Care Document ---
Author Author Antonella MINA MD Organization Unknown Address [address] [facility], [address] [place] [address] Phone [phone] Care Team Providers Care Hop Worker Name Role Phone Misael Patel MD AUTM [phone] Edward Mina MD AUTM [phone] Problems Active Problems Provider Date Anxiety Onset: [...] 1 tab 2 times Daily 30tabs Edward iMna MD 12/25/2020 - 04/03/2021 Pantoprazole Sodium 40mg Tablets D R 1 by mouth In the morning and at night for 1 month then p.r.n. 60tabs K2 9.70 Edward Mina MD 10/24/2020 - 04/03/2021 Immunizations CPT Code Status Date Vaccine Lot # [id number] Given 04/05/2019 Influenza 36 Mos And Older Vital Signs Date Vital Result Comment 04/03/2021 1:40pm BP Systolic 102 mmHg BP Diastolic 80 mmHg Heart Rate 111 /min Body Temperature 97.0 F Height 60 inches 5'0" Weight 188.38 lb Weight 85.447 kg [place] Body Weight 100 lb BMI (Body Mass Index) 36.8 kg/m2 O2 % BldC Oximetry 98 % Pain Level 0 12/25/2020 8:59am BP Systolic 112 mmHg BP Diastolic 74 mmHg Heart Rate 102 /min Body Temperature 97.9 F Height 60 inches 5'0" Weight 197.12 lb Weight 89.416 kg [place] Body Weight 100 lb BMI (Body Mass Index) 38.5 kg/m2 O2 % BldC Oximetry 98 % Pain Level 4 Results Test Acquired Date Facility Test Result H/L Range Note Laboratory test finding 03/13/[address] [facility] [phone] Glycosylated Hgba1c 7.4 % High 4.1-6.5 1 CMP W GFR 03/13/[address] [phone] Sodium 140 mEq/L Normal 135-145 Potassium 4.1 mEq/L Normal 3.5-5.3 Chloride 101 mEq/L Normal 94-110 Carbon Dioxide 27 mEq/L Normal 22-33 Anion Gap 16 Normal 5-16 Blood Urea Nitro 6 mg/dL Low 7-25 Creatinine 0.6 mg/dL Normal 0.6-1.4 GFR > 90.0 mL/min 2 BUN/Creat Ratio 10 Normal 8-36 Glucose 125 mg/dL High 70-100 CA 10.4 mg/dL Normal 8.7-10.5 Bilirubin,Total 0.4 mg/dL Normal 0.1-1.3 Ast 253 U/L High 5-40 Alt 193 U/L High 5-48 Alkaline Phosphatase 101 U/L Normal 40-140 Total Protein 7.9 g/dL Normal 5.9-8.3 Albumin 5.2 g/dL High 3.0-5.1 Globulin 2.7 g/dL Normal 1.5-3.5 Alb/Glob Ratio 1.9 g/dL Normal 1.0-3.0 Urinalysis 03/13/[address] [phone] Color,Ur YELLOW Yellow Appearance,Ur CLEAR Clear PH,Ur 6.0 5.0-8.0 Specific [place],Ur 1.008 Normal 1.002-1.035 Protein,Ur NEGATIVE mg/dL Negative Glucose, Ur NEGATIVE mg/dL Negative Ketones,Ur TRACE mg/dL Negative Occult Blood,Ur NEGATIVE Negative Nitrate,Ur NEGATIVE Negative Leukocyte Esterase ,Ur NEGATIVE Negative Bilirubin,Ur NEGATIVE Negative Urobilinogen,Ur 0.2-1.0 EUMG/DL Neg-0-1.0 CBC W/Auto Diff 03/13/[address] [phone] White Blood Count 8.58 10^3/uL Normal 4.00-10.50 [...] Lymph % (Auto) 45.3 % Normal 20.0-51.0 [place] % (Auto) 4.3 % Normal 2.0-15.0 Eos % (Auto) 2.3 % Normal 0.0-11.0 Baso % (Auto) 0.3 % Normal 0.0-2.0 Ig % (Auto) 0.3 % 1.00-5.00 Ig # (Auto) 0.0 10^3/uL <0.5 Gran # (Auto) 4.06 10^3/uL Normal 1.50-6.50 Lymph # (Auto) 3.9 k/uL Normal 1.0-5.0 [place] # (Auto) 0.37 k/uL Normal 0.20-1.50 Eos # (Auto) 0.20 10^3/uL Normal 0.00-1.10 Baso # (Auto) 0.03 10^3/uL Normal 0.00-0.20 Free T4 And Total T4 03/13/[address] [phone] Free T4 (Free Thyroxine) 1.48 ng/dL Normal 0.76-1. 78 T4 (Thyroxine) 18.2 g/dL High 4.5-10.9 Laboratory test finding 03/13/[address] [phone] TSH 2.926 uIU/ML Normal 0.470-4.200 3 Celiac Disease Comprehensive 03/13/[address] [phone] Gliadin(Deam) Ab,IgA,S 2 units 0-19 4 Gliadin(Deam) Ab IgG,S 1 units 0-19 5 tTransglutaminase IgA,S <2 U/mL 0-3 6 tTransglutaminase IgG,S <2 U/mL 0-5 7 Endomysial Ab, IgA,S Negative Negative IgA, Qn,S 93 mg/dL 87-352 H Pylori AB G/A/M Serum 03/13/[address] [phone] H pylori IgG Ab,S 0.10 0.00-0.79 8 H pylori IgA Ab,S <9.0 units 0.0-8.9 9 H pylori IgM Ab,S <9.0 units 0.0-8.9 10 Lipid Panel 03/13/[address] [phone] Triglycerides 454 mg/dL High 45-150 Cholesterol 358 mg/dL High 125-200 LDL Cholesterol TNP mg/dL 50-130 11 HDL Cholesterol 40 mg/dL Normal 32-96 Chol/HDL Ratio TNP 0-4.3 12 Urinalysis 11/27/[address] [phone] Color,Ur YELLOW Yellow Appearance,Ur CLEAR Clear PH,Ur 6.0 5.0-8.0 Specific [place],Ur 1.016 Normal 1.002-1.035 Protein,Ur NEGATIVE mg/dL Negative Glucose, Ur NEGATIVE mg/dL Negative Ketones,Ur NEGATIVE mg/dL Negative Occult Blood,Ur NEGATIVE Negative Nitrate,Ur NEGATIVE Negative Leukocyte Esterase ,Ur NEGATIVE Negative Bilirubin,Ur NEGATIVE Negative Urobilinogen,Ur 0.2-1.0 EUMG/DL Neg-0-1.0 CMP W GFR 11/27/[address] [phone] Sodium 135 mEq/L Normal 135-145 Potassium 4.1 mEq/L Normal 3.5-5.3 Chloride 101 mEq/L Normal 94-110 Carbon Dioxide 26 mEq/L Normal 22-33 Anion Gap 12 Normal 5-16 Blood Urea Nitro 14 mg/dL Normal 7-25 Creatinine 0.8 mg/dL Normal 0.6-1.4 GFR > 90.0 mL/min 13 BUN/Creat Ratio 17 Normal 8-36 Glucose 235 mg/dL High 70-100 CA 10.2 mg/dL Normal 8.7-10.5 Bilirubin,Total 0.4 mg/dL Normal 0.1-1.3 Ast 136 U/L High 5-40 Alt 151 U/L High 5-48 Alkaline Phosphatase 102 U/L Normal 40-140 Total Protein 7.7 g/dL Normal 5.9-8.3 Albumin 5.7 g/dL High 3.0-5.1 Globulin 2.0 g/dL Normal 1.5-3.5 Alb/Glob Ratio 2.9 g/dL Normal 1.0-3.0 CBC W/Auto Diff 11/27/[address] [phone] White Blood Count 15.77 10^3/uL High 4.00-10.50 [...] Lymph % (Auto) 23.7 % Normal 20.0-51.0 [place] % (Auto) 3.7 % Normal 2.0-15.0 Eos % (Auto) 0.1 % Normal 0.0-11.0 Baso % (Auto) 0.4 % Normal 0.0-2.0 Ig % (Auto) 0.6 % 1.00-5.00 Ig # (Auto) 0.1 10^3/uL <0.5 Gran # (Auto) 11.28 10^3/uL High 1.50-6.50 Lymph # (Auto) 3.7 k/uL Normal 1.0-5.0 [place] # (Auto) 0.58 k/uL Normal 0.20-1.50 Eos # (Auto) 0.02 10^3/uL Normal 0.00-1.10 Baso # (Auto) 0.06 10^3/uL Normal 0.00-0.20 Laboratory test finding 11/27/[address] [phone] [place] 0.6 mEq/L Normal 0.5-1.5 Emergency Drug Screen 11/27/[address] [phone] Opiate Screen NEG Negative 14 Barbiturate Screen NEG Negative 15 Phencyclidine Screen NEG Negative 16 Amphetamine Screen NEG Negative 17 Benzodiazepine Screen POS Negative 18 Cocaine Screen NEG Negative 19 Cannabinoid Screen NEG Negative 20 Heroin Screen NEG Negative 21 Laboratory test finding 11/27/[address] [phone] Covid 19 Rheonix NOT-DETECTED Notdetected 22 Laboratory test finding 11/14/[address] [phone] Blood Alcohol < 0.03 % <0.03 23 Emergency Drug Screen 11/14/[address] [phone] Opiate Screen NEG Negative 24 Barbiturate Screen NEG Negative 25 Phencyclidine Screen NEG Negative 26 Amphetamine Screen NEG Negative 27 Benzodiazepine Screen POS Negative 28 Cocaine Screen NEG Negative 29 Cannabinoid Screen POS Negative 30 Heroin Screen NEG Negative 31 Laboratory test finding 11/14/[address] [phone] HCG Qualitative Specimen URINE *HCG Qualitative Urine NEGATIVE 32 Urinalysis 11/14/[address] [phone] Color,Ur YELLOW Yellow Appearance,Ur CLEAR Clear PH,Ur 6.0 5.0-8.0 Specific [place],Ur 1.009 Normal 1.002-1.035 Protein,Ur NEGATIVE mg/dL Negative Glucose, Ur NEGATIVE mg/dL Negative Ketones,Ur NEGATIVE mg/dL Negative Occult Blood,Ur NEGATIVE Negative Nitrate,Ur NEGATIVE Negative Leukocyte Esterase ,Ur TRACE Abnormal Negative Bilirubin,Ur NEGATIVE Negative Urobilinogen,Ur 0.2-1.0 EUMG/DL Neg-0-1.0 RBC,Ur 3-9 PERHPF Abnormal 0-2 WBC,Ur <5 PERHPF <5 Urine Epith MODERATE PER/LPF Few-Mod Bacteria,Ur RARE PERHPF None Mucus,Ur RARE PERHPF None Seen Laboratory test finding 11/14/[address] [phone] HCG Quantitative < 3 mIU/ml 33 HP5+Havigm+Hbcigm,S 11/14/[address] [phone] Hepatitis A Antibody, IgM,S Negative Nega tive Hepatitis A Antibody, Total,S Positive Abnormal Negative Hepatitis B Surf Antigen SCRN Negative Negative Hepatitis B Core Antibody,Igm Negative Negative Hep B Core Antibody,Total Negative Negative Hepatitis B Surface Antibody Non Reactive . 34 HCV Ab,S <0.1 s/coratio 0.0-0.9 HCV Comment (SEE NOTE) 35 Laboratory test finding 11/14/[address] [phone] Folate 13.05 NG/ML Normal 3.40-24.00 36 Vitamin D,25-Hydroxy 8.8 ng/ml Low 30-100 37 Free T4 (Free Thyroxine) 1.45 ng/dL Normal 0.76-1.78 38 TSH 3.610 uIU/ML Normal 0.470-4.200 39 Glycosylated Hgba1c 7.3 % High 4.1-6.5 40 Lipid Panel 11/14/[address] [phone] Triglycerides 522 mg/dL High 45-150 Cholesterol 376 mg/dL High 125-200 LDL Cholesterol TNP mg/dL 50-130 41 HDL Cholesterol 42 mg/dL Normal 32-96 Chol/HDL Ratio TNP 0-4.3 42 Laboratory test finding 11/14/[address] [phone] Salicylate < 3.0 mg/dL Normal 2.8-20.0 43 Acetaminophen < 2.0 UG/ML Low 10-30 44 CMP W GFR 11/14/[address] [phone] Sodium 138 mEq/L Normal 135-145 Potassium 3.8 mEq/L Normal 3.5-5.3 Chloride 104 mEq/L Normal 94-110 Carbon Dioxide 25 mEq/L Normal 22-33 Anion Gap 13 Normal 5-16 Blood Urea Nitro 9 mg/dL Normal 7-25 Creatinine 0.7 mg/dL Normal 0.6-1.4 GFR > 90.0 mL/min 45 BUN/Creat Ratio 12 Normal 8-36 Glucose 222 mg/dL High 70-100 CA 9.9 mg/dL Normal 8.7-10.5 Bilirubin,Total 0.4 mg/dL Normal 0.1-1.3 Ast 205 U/L High 5-40 Alt 170 U/L High 5-48 Alkaline Phosphatase 104 U/L Normal 40-140 Total Protein 7.1 g/dL Normal 5.9-8.3 Albumin 5.2 g/dL High 3.0-5.1 Globulin 1.9 g/dL Normal 1.5-3.5 Alb/Glob Ratio 2.7 g/dL Normal 1.0-3.0 CBC W/Auto Diff 11/14/[address] [phone] White Blood Count 10.21 10^3/uL Normal 4.00-10.50 [...] Lymph % (Auto) 30.7 % Normal 20.0-51.0 [place] % (Auto) 4.5 % Normal 2.0-15.0 Eos % (Auto) 2.4 % Normal 0.0-11.0 Baso % (Auto) 0.4 % Normal 0.0-2.0 Ig % (Auto) 0.5 % 1.00-5.00 Ig # (Auto) 0.1 10^3/uL <0.5 Gran # (Auto) 6.29 10^3/uL Normal 1.50-6.50 Lymph # (Auto) 3.1 k/uL Normal 1.0-5.0 [place] # (Auto) 0.46 k/uL Normal 0.20-1.50 Eos # (Auto) 0.24 10^3/uL Normal 0.00-1.10 Baso # (Auto) 0.04 10^3/uL Normal 0.00-0.20 Respiratory PNL Covid Only 11/14/[address] [phone] Adenovirus Not Detected NotDetected Coronavirus 229E Not Detected NotDetected 46 Coronavirus Hku1 Not Detected NotDetected 47 Coronavirus NL63 Not Detected NotDetected 48 Coronavirus Oc43 Not Detected NotDetected 49 Human Metapneumovirus Not Detected NotDetected Human Rhinovirus/ENT [...] Detected NotDetected Mycoplasma Pneumoniae Not Detected NotDetected 50 Coronavirus 2 (Sars-CoV-2) NOT-DETECTED Notdetected 51 Respiratory PNL Covid Only 10/02/[address] [phone] Adenovirus Not Detected NotDetected Coronavirus 229E Not Detected NotDetected 52 Coronavirus Hku1 Not Detected NotDetected 53 Coronavirus NL63 Not Detected NotDetected 54 Coronavirus Oc43 Not Detected NotDetected 55 Human Metapneumovirus Not Detected NotDetected Human Rhinovirus/ENT [...] Detected NotDetected Mycoplasma Pneumoniae Not Detected NotDetected 56 Coronavirus 2 (Sars-CoV-2) NOT-DETECTED Notdetected 57 CBC W/Auto Diff 10/02/[address] [phone] White Blood Count 8.85 10^3/uL Normal 4.00-10.50 Red Blood Count 4.11 10^6/uL Normal 3.90-5.20 Hemoglobin 11.9 g/dL Normal 11.5-15.6 Hematocrit 36.2 % Normal 35.0-46.0 MCV 88.1 FL Normal 80.0-100.0 MCH 29.0 pg Normal 27.0-34.0 MCHC 32.9 g/dL Normal 32-36 RDW 12.3 % Normal 11.5-14.5 Platelet Count 392 10^3/uL Normal 130-400 MPV 10.6 FL Normal 8.7-13.2 Gran % (Auto) 51.6 % Normal 42.0-75.0 Lymph % (Auto) 39.1 % Normal 20.0-51.0 [place] % (Auto) 5.3 % Normal 2.0-15.0 Eos % (Auto) 2.9 % Normal 0.0-11.0 Baso % (Auto) 0.5 % Normal 0.0-2.0 Ig % (Auto) 0.6 % 1.00-5.00 Ig # (Auto) 0.1 10^3/uL <0.5 Gran # (Auto) 4.57 10^3/uL Normal 1.50-6.50 Lymph # (Auto) 3.5 k/uL Normal 1.0-5.0 [place] # (Auto) 0.47 k/uL Normal 0.20-1.50 Eos # (Auto) 0.26 10^3/uL Normal 0.00-1.10 Baso # (Auto) 0.04 10^3/uL Normal 0.00-0.20 Laboratory test finding 10/02/[address] [phone] HCG Qualitative Specimen SERUM *HCG Qualitative Serum NEGATIVE 58 Blood Alcohol < 0.03 % <0.03 59 CMP W GFR 10/02/[address] [phone] Sodium 137 mEq/L Normal 135-145 Potassium 4.0 mEq/L Normal 3.5-5.3 Chloride 105 mEq/L Normal 94-110 Carbon Dioxide 21 mEq/L Low 22-33 Anion Gap 15 Normal 5-16 Blood Urea Nitro 10 mg/dL Normal 7-25 Creatinine 0.6 mg/dL Normal 0.6-1.4 GFR > 90.0 mL/min 60 BUN/Creat Ratio 16 Normal 8-36 Glucose 143 mg/dL High 70-100 CA 9.8 mg/dL Normal 8.7-10.5 Bilirubin,Total 0.4 mg/dL Normal 0.1-1.3 Ast 93 U/L High 5-40 Alt 86 U/L High 5-48 Alkaline Phosphatase 88 U/L Normal 40-140 Total Protein 6.9 g/dL Normal 5.9-8.3 Albumin 5.0 g/dL Normal 3.0-5.1 Globulin 1.9 g/dL Normal 1.5-3.5 Alb/Glob Ratio 2.6 g/dL Normal 1.0-3.0 Laboratory test finding 10/02/[address] [phone] Salicylate < 3.0 mg/dL Normal 2.8-20.0 61 Acetaminophen < 2.0 UG/ML Low 10-30 62 Lamotrigine 2.1 ug/mL 2.0-20.0 63 Emergency Drug Screen 10/02/[address] [phone] Opiate Screen NEG Negative 64 Barbiturate Screen NEG Negative 65 Phencyclidine Screen NEG Negative 66 Amphetamine Screen NEG Negative 67 Benzodiazepine Screen POS Negative 68 Cocaine Screen NEG Negative 69 Cannabinoid Screen NEG Negative 70 Heroin Screen NEG Negative 71 Urinalysis 10/02/[address] [phone] Color,Ur YELLOW Yellow Appearance,Ur CLEAR Clear PH,Ur 5.0 5.0-8.0 Specific [place],Ur 1.011 Normal 1.002-1.035 Protein,Ur NEGATIVE mg/dL Negative Glucose, Ur NEGATIVE mg/dL Negative Ketones,Ur NEGATIVE mg/dL Negative Occult Blood,Ur NEGATIVE Negative Nitrate,Ur NEGATIVE Negative Leukocyte Esterase ,Ur TRACE Abnormal Negative Bilirubin,Ur NEGATIVE Negative Urobilinogen,Ur 0.2-1.0 EUMG/DL Neg-0-1.0 RBC,Ur 1-2 PERHPF 0-2 WBC,Ur <5 PERHPF <5 Urine Epith MODERATE PER/LPF Few-Mod Mucus,Ur RARE PERHPF None Seen 1 @Has Patient Fasted For The Past 12 Hours? Yes @Order Comment FASTING 12 HOUR 2 Stage G1 - Normal or high ki dney function The GFR is an estimate of the Glomerular Filtration Rate. It is an aid to assess a patient's renal function. It is not a conclusive diagnosis of kidney disease. GFR normal is >=90 The MDRD GFR calculation is considered valid between the ages of 18 and 75 years only. 3 Patients should not be teste d for 72 hours post fluorescein dye angiography. A false depression of result may occur. 4 Negative 0 - 19 Weak Positive 20 - 30 Moderate to Strong Positive >30 5 Negative 0 - 19 Weak Positive 20 - 30 Moderate to Strong Positive >30 6 Negative 0 - 3 Weak Positive 4 - 10 Positive >10 Tissue Transglutaminase (tTG) has been identified as the endomysial antigen. Studies have demonstr- ated that endomysial IgA antibodies have over 99% specificity for gluten sensitive enteropathy. 7 Negative 0 - 5 Weak Positive 6 - 9 Positive >9 8 Result Units: Index Value Negative <0.80 Equivocal 0.80 - 0.89 Positive >0.89 9 Negative <9.0 Equivocal 9.0 - 11.0 Positive >11.0 10 Negative <9.0 Equivocal 9.0 - 11.0 Positive >11.0 This test was developed and its performance characteristics determined by [facility]. It has not been cleared or approved by the Food and Drug Administration. Performed at: - [facility] [id number] General Operations Agent: Nishi De La Cruz MD, Phone: [phone] 11 Invalid due to elevated trig lycerides 12 Invalid due to elevated trig lycerides 13 Stage G1 - Normal or high ki dney function The GFR is an estimate of the Glomerular Filtration Rate. It is an aid to assess a patient's renal function. It is not a conclusive diagnosis of kidney disease. GFR normal is >=90 The MDRD GFR calculation is considered valid between the ages of 18 and 75 years only. 14 Minimum Detectable Limit is 300 ng/mL. 15 Minimum Detectable Limit is 300 ng/mL. 16 Minimum Detectable Limit is 25 ng/mL. 17 Minimum Detectable Limit is 1000 mg/mL. 18 Mininum Detectable Limit is 300 ng/mL. 19 Minimum Detectable Limit is 300 ng/mL. 20 Minimum Detectable limit is 50 ng/dL. 21 Minimum Detectable limit is 10 ng/dL. All POSITIVE or BORDER results are unconfirmed. Please contact the laboratory if a reference testing confirmation is needed. 22 The Flocations COVID-19 MDx Ass ay is an endpoint RT-PCR assay (MOLECULAR)intended for the qualitative detection of nucleic acid from SARS-CoV-2 in nasopharyngeal swabs. COVID testing using the Flocations analyzer was developed for the purpose of [...] providers in consultation with public health authorities. 23 Has Patient Fasted For The P ast 12 Hours? N 24 Minimum Detectable Limit is 300 ng/mL. 25 Minimum Detectable Limit is 300 ng/mL. 26 Minimum Detectable Limit is 25 ng/mL. 27 Minimum Detectable Limit is 1000 mg/mL. 28 Mininum Detectable Limit is 300 ng/mL. 29 Minimum Detectable Limit is 300 ng/mL. 30 Minimum Detectable limit is 50 ng/dL. 31 Minimum Detectable limit is 10 ng/dL. All POSITIVE or BORDER results are unconfirmed. Please contact the laboratory if a reference testing confirmation is needed. 32 Reference range is Negative To ensure best sensitivity, first morning void is recommended. Dilute, low specific gravity urine may give a falsely negative result. If is suspected, repeat testing with a new specimen 48-72 hours later. 33 Time Post-Conception mIU/mL 7 to 10 days >3 30 days 100 to 500 40 days >200 0 10 weeks 50,0 00 to 140,000 14 weeks 10,0 00 to 50,000 Maximum levels of hCG can be reached by the second to third months following conception. Levels decrease to as low as 6000 by the third trimester. Testing was performed on the [employer]ria System. The methodology used detects the intact hCG molecule and free beta subunits of the hCG molecule. 34 Non Reactive: Inconsistent w ith immunity, less than 10 mIU/mL Reactive: Consistent with immunity, greater than 9.9 mIU/mL 35 Non reactive HCV antibody sc reen is consistent with no HCV infection, unless recent infection is suspected or other evidence exists to indicate HCV infection. Performed at: RN - [facility] [place] [address], [place], [place] [id number] General Operations Agent: Nishi De La Cruz MD, Phone: [phone] 36 Has Patient Fasted For The P ast 12 Hours? N 37 Vitamin D Status Range Deficiency <20 ng/ml Insufficiency 20-29.9 ng/ml Sufficiency 30-100 ng/ml Toxicity >100 ng/ml Patients should not be tested for 72 hours post fluorescein dye angiography. A false elevation of result may occur. 38 Has Patient Fasted For The P ast 12 Hours? N 39 Patients should not be teste d for 72 hours post fluorescein dye angiography. A false depression of result may occur. 40 Has Patient Fasted For The P ast 12 Hours? N 41 Invalid due to elevated trig lycerides 42 Invalid due to elevated trig lycerides 43 Has Patient Fasted For The P ast 12 Hours? N 44 High levels of N-acetylcyste ine (used to treat Acetaminophen overdose) may cause interference and cause a negative bias in the Acetaminophen result. 45 Stage G1 - Normal or high ki dney function The GFR is an estimate of the Glomerular Filtration Rate. It is an aid to assess a patient's renal function. It is not a conclusive diagnosis of kidney disease. GFR normal is >=90 The MDRD GFR calculation is considered valid between the ages of 18 and 75 years only. 46 This is NOT the novel leon virus COVID-19 47 This is NOT the novel leon virus COVID-19 48 This is NOT the novel leon virus COVID-19 49 This is NOT the novel leon virus COVID-19 50 The Respiratory Panel is a m ultiplexed nucleic acid/PCR test. A negative result does not rule out the presence of PCR inhibitors in the patient sample or assay-specific nucleic acid concentrations below the level of detection by the assay. 51 THIS IS THE NOVEL CORONAVIRU S COVID-19 The [employer] Respiratory Panel is a multiplexed nucleic acid/PCR test. A negative result does not rule out the presence of PCR inhibitors in the patient sample or assay-specific nucleic acid concentrations below the level of detection by the assay. 52 This is NOT the novel leon virus COVID-19 53 This is NOT the novel leon virus COVID-19 54 This is NOT the novel leon virus COVID-19 55 This is NOT the novel leon virus COVID-19 56 The Respiratory Panel is a m ultiplexed nucleic acid/PCR test. A negative result does not rule out the presence of PCR inhibitors in the patient sample or assay-specific nucleic acid concentrations below the level of detection by the assay. 57 THIS IS THE NOVEL CORONAVIRU S COVID-19 The [employer] Respiratory Panel is a multiplexed nucleic acid/PCR test. A negative result does not rule out the presence of PCR inhibitors in the patient sample or assay-specific nucleic acid concentrations below the level of detection by the assay. 58 Reference range is Negative "Extreme" early may have low levels of HCG present. If is suspected, repeat testing with a new specimen in 48-72 hours 59 Has Patient Fasted For The P ast 12 Hours? N 60 Stage G1 - Normal or high ki dney function The GFR is an estimate of the Glomerular Filtration Rate. It is an aid to assess a patient's renal function. It is not a conclusive diagnosis of kidney disease. GFR normal is >=90 The MDRD GFR calculation is considered valid between the ages of 18 and 75 years only. 61 Has Patient Fasted For The P ast 12 Hours? N 62 High levels of N-acetylcyste ine (used to treat Acetaminophen overdose) may cause interference and cause a negative bias in the Acetaminophen result. 63 Testing on this sample was p erformed by homogeneous enzyme immunoassay. Detection Limit = 1.0 Performed at: [facility] [address] [place] [id number] General Operations Agent: Dee Dee Schuler [facility], Phone: [phone] 64 Minimum Detectable Limit is 300 ng/mL. 65 Minimum Detectable Limit is 300 ng/mL. 66 Minimum Detectable Limit is 25 ng/mL. 67 Minimum Detectable Limit is 1000 mg/mL. 68 Mininum Detectable Limit is 300 ng/mL. 69 Minimum Detectable Limit is 300 ng/mL. 70 Minimum Detectable limit is 50 ng/dL. 71 Minimum Detectable limit is 10 ng/dL. All POSITIVE or BORDER results are unconfirmed. Please contact the laboratory if a reference testing confirmation is needed. Procedures Date Code Description Status 12/25/2020 66754 Trans Of Care, Hfu W/In 14 Days Of Discharge Completed 10/24/2020 49153 Office/Outpatient Established Mo d MDM 30-39 Min Completed 10/16/2020 G8431 Clinical Depression Screen Docum ented Using Standardized Tools Completed 10/16/2020 65398 Preventive Visit Est 18-39 Yrs C ompleted 10/16/2020 33693 Office/Outpatient Established Mo d MDM 30-39 Min Completed Medical Devices Description No Information Available Encounters Type Date Location Provider Dx Diagnosis Office Visit 12/25/2020 9:00a [facility] Edward Mina MD E 11.9 Type 2 diabetes mellitus without complications Z13.6 Encounter for screening for cardiovascular disorders E03.9 Hypothyroidism, unspecified F33.1 Major depressive disorder, r ecurrent, moderate Z68.38 Body mass index [BMI] 38.0-3 8.9, adult Office Visit 10/24/2020 8:45a [facility] Edward Mina MD K 29.70 Gastritis, unspecified, without bleeding E11.9 Type 2 diabetes mellitus wit hout complications Z13.6 Encounter for screening for cardiovascular disorders Z71.3 Dietary counseling and surve illance Z68.39 Body mass index [BMI] 39.0-3 9.9, adult Office Visit 10/16/2020 2:30p [facility] Edward Mina MD Z 00.01 Encounter for [...] E78.5 Hyperlipidemia, unspecified Ehsan Mina MD 04/03/2021 Z71.3 Dietary counseling and surveilla nce Edward Mina MD 04/03/2021 Z68.36 Body mass [...] Mina MD Plan of Treatment Future Appointment(s):* 10/23/2021 2:15 pm - Edward Mina MD at [facility] * 04/17/2021 3:00 pm - Edward Mina MD at [facility] 04/03/2021 - Edward Mina MD* R10.9 Unspecified abdominal pain * K76.89 Abnormal liver function * E11.9 Type 2 diabetes mellitus without complications * E78.5 Hyperlipidemia, unspecified * Z71.3 Dietary counseling and surveillance * Z68.36 Body mass index [BMI] 36.0-36.9, adult * All * Referral:* No Doctor Selected * Follow up:* One month Functional Status Description No Information Available Mental Status Description No Information Available Referrals Refer to Dr Reason for Referral Status Appt Date Created MD Arsenio Lindsey 10/24-referral sent. appt [email or web address] Please advise our office of appt,date,time,provider,NPI. Gastritis. Refer for possible endoscopy and ERCP Scheduled 11/15/[address] [place] [id number] [place] [address] [phone] [facility] Upper abdominal pain Records davis Tovar pending. [facility] [address] [facility] [address] [place] [address] [phone]
--- OUTSIDE RECORDS SUMMARY | 2021-05-20 15:38 | CCD | Continuity of Care Document ---
Author Author Antonella MINA MD Organization Unknown Address [address] [facility], [address] [place] [address] Phone [phone] Care Team Providers Care Database Analyst Name Role Phone Misael Patel MD AUTM [phone] Edward Mina MD AUTM [phone] Problems Active Problems Provider Date Anxiety Onset: [...] former smoker Exercise Type/Frequency Does not exercise Allergies and adverse reactions Description No Known Drug Allergies Medications Active Medications SIG Qnty Indications Ordering Provide r Date Trazodone HCL 50mg Tablets 1hs - take one tablet by mouth at bedtime 30tabs G47.00 Edward Mina MD Ondansetron HCL 8mg Tablets 1 tab every 8 hours as needed for nausea. 10tabs R11.2 Edward Mina MD 1 Diphenoxylate Hydrochloride/Atropine Sul fate 2.5-0.025mg Tablets take one tablet by mouth four times a da y as needed for diarrhea (maximum daily dose = 4), stomach cramps and stomach pain 30tabs R19.7 Edward Mina MD 05/01/2021 Levothyroxine Sodium 75mcg Capsule s 1 daily 30caps Edward Mina MD 12/25/2020 Glipizide ER 10mg Tablets ER 24HR 1 tablet b.i.d. 60tabs E11.9 Edward Mina MD 12/25/2020 Onetouch Ultrasoft Lancets Misc test twice a day 200units Edward Mina MD 07/03/2020 Onetouch Ultra Strips test twice a day 150units E11.9 Edward Mina MD 07/03/2020 V[employer] People Ultra 2 w/Device Kit as directed 1units Edward Mina MD 07/03/2020 June07/25 1-20mg-mcg Tablets daily Unknown 12/09/2018 Valium 5mg Tablets Take 0.5mg (2.5mg total) by mouth 2 times daily Edward Mina MD History Medications Ondansetron HCL 8mg Tablets 1 tab every 8 hours as needed for nausea. 10tabs R11.2 Edward Mina MD 1 - 05/01/2021 Glipizide 10mg Tablets 1 by mouth Once a day for diabetic control E11.9 Edward Mina MD 12/05 - 12/25/2020 Risperidone 1mg Tablets 1 tab 2 times Daily 30tabs Edward Mina MD 12/25/2020 - 04/03/2021 Immunizations CPT Code Status Date Vaccine Lot # [id number] Given 04/05/2019 Influenza 36 Mos And Older Vital Signs Date Vital Result Comment 05/01/2021 1:04pm BP Systolic 124 mmHg BP Diastolic 88 mmHg Heart Rate 110 /min Body Temperature 97.9 F Height 60 inches 5'0" Weight 185.12 lb Weight 83.973 kg [place] Body Weight 100 lb BMI (Body Mass Index) 36.2 kg/m2 O2 % BldC Oximetry 97 % Pain Level 2 04/03/2021 1:40pm BP Systolic 102 mmHg BP Diastolic 80 mmHg Heart Rate 111 /min Body Temperature 97.0 F Height 60 inches 5'0" Weight 188.38 lb Weight 85.447 kg [place] Body Weight 100 lb BMI (Body Mass Index) 36.8 kg/m2 O2 % BldC Oximetry 98 % Pain Level 0 Results Test Acquired Date Facility Test Result H/L Range Note CMP W GFR 05/01/[address] [phone] Sodium 140 mEq/L Normal 135-145 Potassium 4.0 mEq/L Normal 3.5-5.3 Chloride 105 mEq/L Normal 94-110 Carbon Dioxide 26 mEq/L Normal 22-33 Anion Gap 13 Normal 5-16 Blood Urea Nitro 10 mg/dL Normal 7-25 Creatinine 0.7 mg/dL Normal 0.6-1.4 GFR > 90.0 mL/min 1 BUN/Creat Ratio 14 Normal 8-36 Glucose 171 mg/dL High 70-100 CA 10.4 mg/dL Normal 8.7-10.5 Bilirubin,Total 0.5 mg/dL Normal 0.1-1.3 Ast 118 U/L High 5-40 Alt 112 U/L High 5-48 Alkaline Phosphatase 91 U/L Normal 40-140 Total Protein 7.7 g/dL Normal 5.9-8.3 Albumin 5.4 g/dL High 3.0-5.1 Globulin 2.3 g/dL Normal 1.5-3.5 Alb/Glob Ratio 2.3 g/dL Normal 1.0-3.0 Laboratory test finding 05/01/[address] [phone] Hemoglobin A1c <pending> Free T4 And TSH 05/01/[address] [phone] TSH <pending> Laboratory test finding 05/01/[address] [phone] Hepatitis C AB Screen 0.02 Index Normal 0.00-0.79 2 Hepatitis B Surface Antigen NEGATIVE Negative 3 CBC W/Auto Diff 05/01/[address] [phone] White Blood Count 10.15 10^3/uL Normal 4.00-10.50 Red Blood Count 4.39 10^6/uL Normal 3.90-5.20 Hemoglobin 12.8 g/dL Normal 11.5-15.6 Hematocrit 40.1 % Normal 35.0-46.0 MCV 91.3 FL Normal 80.0-100.0 MCH 29.2 pg Normal 27.0-34.0 MCHC 31.9 g/dL Low 32-36 RDW 12.4 % Normal 11.5-14.5 Platelet Count 414 10^3/uL High 130-400 MPV 11.3 FL Normal 8.7-13.2 Gran % (Auto) 42.9 % Normal 42.0-75.0 Lymph % (Auto) 49.0 % Normal 20.0-51.0 [place] % (Auto) 5.4 % Normal 2.0-15.0 Eos % (Auto) 1.8 % Normal 0.0-11.0 Baso % (Auto) 0.5 % Normal 0.0-2.0 Ig % (Auto) 0.4 % 1.00-5.00 Ig # (Auto) 0.0 10^3/uL <0.5 Gran # (Auto) 4.36 10^3/uL Normal 1.50-6.50 Lymph # (Auto) 5.0 k/uL Normal 1.0-5.0 [place] # (Auto) 0.55 k/uL Normal 0.20-1.50 Eos # (Auto) 0.18 10^3/uL Normal 0.00-1.10 Baso # (Auto) 0.05 10^3/uL Normal 0.00-0.20 Xray 05/01/[address] [phone] CT Abdomen W Contrast <pending> Xray 04/03/[address] [address] [phone] CT Abdomen W Contrast <pending> CBC W/Auto Diff 03/13/[address] [phone] White Blood Count 8.58 10^3/uL Normal 4.00-10.50 [...] Lymph % (Auto) 45.3 % Normal 20.0-51.0 [place] % (Auto) 4.3 % Normal 2.0-15.0 Eos % (Auto) 2.3 % Normal 0.0-11.0 Baso % (Auto) 0.3 % Normal 0.0-2.0 Ig % (Auto) 0.3 % 1.00-5.00 Ig # (Auto) 0.0 10^3/uL <0.5 Gran # (Auto) 4.06 10^3/uL Normal 1.50-6.50 Lymph # (Auto) 3.9 k/uL Normal 1.0-5.0 [place] # (Auto) 0.37 k/uL Normal 0.20-1.50 Eos # (Auto) 0.20 10^3/uL Normal 0.00-1.10 Baso # (Auto) 0.03 10^3/uL Normal 0.00-0.20 Lipid Panel 03/13/[address] [phone] Triglycerides 454 mg/dL High 45-150 Cholesterol 358 mg/dL High 125-200 LDL Cholesterol TNP mg/dL 50-130 4 HDL Cholesterol 40 mg/dL Normal 32-96 Chol/HDL Ratio TNP 0-4.3 5 Laboratory test finding 03/13/[address] [phone] Glycosylated Hgba1c 7.4 % High 4.1-6.5 6 CMP W GFR 03/13/[address] [phone] Sodium 140 mEq/L Normal 135-145 Potassium 4.1 mEq/L Normal 3.5-5.3 Chloride 101 mEq/L Normal 94-110 Carbon Dioxide 27 mEq/L Normal 22-33 Anion Gap 16 Normal 5-16 Blood Urea Nitro 6 mg/dL Low 7-25 Creatinine 0.6 mg/dL Normal 0.6-1.4 GFR > 90.0 mL/min 7 BUN/Creat Ratio 10 Normal 8-36 Glucose 125 mg/dL High 70-100 CA 10.4 mg/dL Normal 8.7-10.5 Bilirubin,Total 0.4 mg/dL Normal 0.1-1.3 Ast 253 U/L High 5-40 Alt 193 U/L High 5-48 Alkaline Phosphatase 101 U/L Normal 40-140 Total Protein 7.9 g/dL Normal 5.9-8.3 Albumin 5.2 g/dL High 3.0-5.1 Globulin 2.7 g/dL Normal 1.5-3.5 Alb/Glob Ratio 1.9 g/dL Normal 1.0-3.0 H Pylori AB G/A/M Serum 03/13/[address] [phone] H pylori IgG Ab,S 0.10 0.00-0.79 8 H pylori IgA Ab,S <9.0 units 0.0-8.9 9 H pylori IgM Ab,S <9.0 units 0.0-8.9 10 Celiac Disease Comprehensive 03/13/[address] [phone] Gliadin(Deam) Ab,IgA,S 2 units 0-19 11 Gliadin(Deam) Ab IgG,S 1 units 0-19 12 tTransglutaminase IgA,S <2 U/mL 0-3 13 tTransglutaminase IgG,S <2 U/mL 0-5 14 Endomysial Ab, IgA,S Negative Negative IgA, Qn,S 93 mg/dL 87-352 Urinalysis 03/13/[address] [phone] Color,Ur YELLOW Yellow Appearance,Ur CLEAR Clear PH,Ur 6.0 5.0-8.0 Specific [place],Ur 1.008 Normal 1.002-1.035 Protein,Ur NEGATIVE mg/dL Negative Glucose, Ur NEGATIVE mg/dL Negative Ketones,Ur TRACE mg/dL Negative Occult Blood,Ur NEGATIVE Negative Nitrate,Ur NEGATIVE Negative Leukocyte Esterase ,Ur NEGATIVE Negative Bilirubin,Ur NEGATIVE Negative Urobilinogen,Ur 0.2-1.0 EUMG/DL Neg-0-1.0 Free T4 And Total T4 03/13/[address] [phone] Free T4 (Free Thyroxine) 1.48 ng/dL Normal 0.76-1. 78 T4 (Thyroxine) 18.2 g/dL High 4.5-10.9 Laboratory test finding 03/13/[address] [phone] TSH 2.926 uIU/ML Normal 0.470-4.200 15 Laboratory test finding 11/27/[address] [phone] Covid 19 Rheonix NOT-DETECTED Notdetected 16 CMP W GFR 11/27/[address] [phone] Sodium 135 mEq/L Normal 135-145 Potassium 4.1 mEq/L Normal 3.5-5.3 Chloride 101 mEq/L Normal 94-110 Carbon Dioxide 26 mEq/L Normal 22-33 Anion Gap 12 Normal 5-16 Blood Urea Nitro 14 mg/dL Normal 7-25 Creatinine 0.8 mg/dL Normal 0.6-1.4 GFR > 90.0 mL/min 17 BUN/Creat Ratio 17 Normal 8-36 Glucose 235 mg/dL High 70-100 CA 10.2 mg/dL Normal 8.7-10.5 Bilirubin,Total 0.4 mg/dL Normal 0.1-1.3 Ast 136 U/L High 5-40 Alt 151 U/L High 5-48 Alkaline Phosphatase 102 U/L Normal 40-140 Total Protein 7.7 g/dL Normal 5.9-8.3 Albumin 5.7 g/dL High 3.0-5.1 Globulin 2.0 g/dL Normal 1.5-3.5 Alb/Glob Ratio 2.9 g/dL Normal 1.0-3.0 CBC W/Auto Diff 11/27/[address] [phone] White Blood Count 15.77 10^3/uL High 4.00-10.50 [...] Lymph % (Auto) 23.7 % Normal 20.0-51.0 [place] % (Auto) 3.7 % Normal 2.0-15.0 Eos % (Auto) 0.1 % Normal 0.0-11.0 Baso % (Auto) 0.4 % Normal 0.0-2.0 Ig % (Auto) 0.6 % 1.00-5.00 Ig # (Auto) 0.1 10^3/uL <0.5 Gran # (Auto) 11.28 10^3/uL High 1.50-6.50 Lymph # (Auto) 3.7 k/uL Normal 1.0-5.0 [place] # (Auto) 0.58 k/uL Normal 0.20-1.50 Eos # (Auto) 0.02 10^3/uL Normal 0.00-1.10 Baso # (Auto) 0.06 10^3/uL Normal 0.00-0.20 Laboratory test finding 11/27/[address] [phone] [place] 0.6 mEq/L Normal 0.5-1.5 Emergency Drug Screen 11/27/[address] [phone] Opiate Screen NEG Negative 18 Barbiturate Screen NEG Negative 19 Phencyclidine Screen NEG Negative 20 Amphetamine Screen NEG Negative 21 Benzodiazepine Screen POS Negative 22 Cocaine Screen NEG Negative 23 Cannabinoid Screen NEG Negative 24 Heroin Screen NEG Negative 25 Urinalysis 11/27/[address] [phone] Color,Ur YELLOW Yellow Appearance,Ur CLEAR Clear PH,Ur 6.0 5.0-8.0 Specific [place],Ur 1.016 Normal 1.002-1.035 Protein,Ur NEGATIVE mg/dL Negative Glucose, Ur NEGATIVE mg/dL Negative Ketones,Ur NEGATIVE mg/dL Negative Occult Blood,Ur NEGATIVE Negative Nitrate,Ur NEGATIVE Negative Leukocyte Esterase ,Ur NEGATIVE Negative Bilirubin,Ur NEGATIVE Negative Urobilinogen,Ur 0.2-1.0 EUMG/DL Neg-0-1.0 Respiratory PNL Covid Only 11/14/[address] [phone] Adenovirus Not Detected NotDetected Coronavirus 229E Not Detected NotDetected 26 Coronavirus Hku1 Not Detected NotDetected 27 Coronavirus NL63 Not Detected NotDetected 28 Coronavirus Oc43 Not Detected NotDetected 29 Human Metapneumovirus Not Detected NotDetected Human Rhinovirus/ENT [...] Detected NotDetected Mycoplasma Pneumoniae Not Detected NotDetected 30 Coronavirus 2 (Sars-CoV-2) NOT-DETECTED Notdetected 31 CBC W/Auto Diff 11/14/[address] [phone] White Blood Count 10.21 10^3/uL Normal 4.00-10.50 [...] Lymph % (Auto) 30.7 % Normal 20.0-51.0 [place] % (Auto) 4.5 % Normal 2.0-15.0 Eos % (Auto) 2.4 % Normal 0.0-11.0 Baso % (Auto) 0.4 % Normal 0.0-2.0 Ig % (Auto) 0.5 % 1.00-5.00 Ig # (Auto) 0.1 10^3/uL <0.5 Gran # (Auto) 6.29 10^3/uL Normal 1.50-6.50 Lymph # (Auto) 3.1 k/uL Normal 1.0-5.0 [place] # (Auto) 0.46 k/uL Normal 0.20-1.50 Eos # (Auto) 0.24 10^3/uL Normal 0.00-1.10 Baso # (Auto) 0.04 10^3/uL Normal 0.00-0.20 Laboratory test finding 11/14/[address] [phone] Blood Alcohol < 0.03 % <0.03 32 CMP W GFR 11/14/[address] [phone] Sodium 138 mEq/L Normal 135-145 Potassium 3.8 mEq/L Normal 3.5-5.3 Chloride 104 mEq/L Normal 94-110 Carbon Dioxide 25 mEq/L Normal 22-33 Anion Gap 13 Normal 5-16 Blood Urea Nitro 9 mg/dL Normal 7-25 Creatinine 0.7 mg/dL Normal 0.6-1.4 GFR > 90.0 mL/min 33 BUN/Creat Ratio 12 Normal 8-36 Glucose 222 mg/dL High 70-100 CA 9.9 mg/dL Normal 8.7-10.5 Bilirubin,Total 0.4 mg/dL Normal 0.1-1.3 Ast 205 U/L High 5-40 Alt 170 U/L High 5-48 Alkaline Phosphatase 104 U/L Normal 40-140 Total Protein 7.1 g/dL Normal 5.9-8.3 Albumin 5.2 g/dL High 3.0-5.1 Globulin 1.9 g/dL Normal 1.5-3.5 Alb/Glob Ratio 2.7 g/dL Normal 1.0-3.0 Laboratory test finding 11/14/[address] [phone] Salicylate < 3.0 mg/dL Normal 2.8-20.0 34 Acetaminophen < 2.0 UG/ML Low 10-30 35 Lipid Panel 11/14/[address] [phone] Triglycerides 522 mg/dL High 45-150 Cholesterol 376 mg/dL High 125-200 LDL Cholesterol TNP mg/dL 50-130 36 HDL Cholesterol 42 mg/dL Normal 32-96 Chol/HDL Ratio TNP 0-4.3 37 Laboratory test finding 11/14/[address] [phone] Folate 13.05 NG/ML Normal 3.40-24.00 38 Vitamin D,25-Hydroxy 8.8 ng/ml Low 30-100 39 Free T4 (Free Thyroxine) 1.45 ng/dL Normal 0.76-1.78 40 TSH 3.610 uIU/ML Normal 0.470-4.200 41 Glycosylated Hgba1c 7.3 % High 4.1-6.5 42 HP5+Havigm+Hbcigm,S 11/14/[address] [phone] Hepatitis A Antibody, IgM,S Negative Nega tive Hepatitis A Antibody, Total,S Positive Abnormal Negative Hepatitis B Surf Antigen SCRN Negative Negative Hepatitis B Core Antibody,Igm Negative Negative Hep B Core Antibody,Total Negative Negative Hepatitis B Surface Antibody Non Reactive . 43 HCV Ab,S <0.1 s/coratio 0.0-0.9 HCV Comment (SEE NOTE) 44 Laboratory test finding 11/14/[address] [phone] HCG Quantitative < 3 mIU/ml 45 Urinalysis 11/14/[address] [phone] Color,Ur YELLOW Yellow Appearance,Ur CLEAR Clear PH,Ur 6.0 5.0-8.0 Specific [place],Ur 1.009 Normal 1.002-1.035 Protein,Ur NEGATIVE mg/dL Negative Glucose, Ur NEGATIVE mg/dL Negative Ketones,Ur NEGATIVE mg/dL Negative Occult Blood,Ur NEGATIVE Negative Nitrate,Ur NEGATIVE Negative Leukocyte Esterase ,Ur TRACE Abnormal Negative Bilirubin,Ur NEGATIVE Negative Urobilinogen,Ur 0.2-1.0 EUMG/DL Neg-0-1.0 RBC,Ur 3-9 PERHPF Abnormal 0-2 WBC,Ur <5 PERHPF <5 Urine Epith MODERATE PER/LPF Few-Mod Bacteria,Ur RARE PERHPF None Mucus,Ur RARE PERHPF None Seen Laboratory test finding 11/14/[address] [phone] HCG Qualitative Specimen URINE *HCG Qualitative Urine NEGATIVE 46 Emergency Drug Screen 11/14/[address] [phone] Opiate Screen NEG Negative 47 Barbiturate Screen NEG Negative 48 Phencyclidine Screen NEG Negative 49 Amphetamine Screen NEG Negative 50 Benzodiazepine Screen POS Negative 51 Cocaine Screen NEG Negative 52 Cannabinoid Screen POS Negative 53 Heroin Screen NEG Negative 54 1 Stage G1 - Normal or high ki dney function The GFR is an estimate of the Glomerular Filtration Rate. It is an aid to assess a patient's renal function. It is not a conclusive diagnosis of kidney disease. GFR normal is >=90 The MDRD GFR calculation is considered valid between the ages of 18 and 75 years only. 2 Value of less than 0.80 is c onsidered nonreactive for IgG antibodies to HCV Value greater than or equal to 0.80 and less than 1.0 is considered equivocal for IgG antibodies to HCV. Supplemental testing of the sample is recommended. Value greater than or equal to 1.0 is considered reactive for IgG antibodies to HCV. Supplemental testing of the sample is recommended. This Laboratory test Result (greater than or equal to 1.0) is Evidence of a Communicable Disease, and if Diagnosed, must be brought to the Local Health Unit. 3 @Order Comment FASTING 12 HO UR 4 Invalid due to elevated trig lycerides 5 Invalid due to elevated trig lycerides 6 @Has Patient Fasted For The Past 12 Hours? Yes @Order Comment FASTING 12 HOUR 7 Stage G1 - Normal or high ki dney function The GFR is an estimate of the Glomerular Filtration Rate. It is an aid to assess a patient's renal function. It is not a conclusive diagnosis of kidney disease. GFR normal is >=90 The MDRD GFR calculation is considered valid between the ages of 18 and 75 years only. 8 Result Units: Index Value Negative <0.80 Equivocal 0.80 - 0.89 Positive >0.89 9 Negative <9.0 Equivocal 9.0 - 11.0 Positive >11.0 10 Negative <9.0 Equivocal 9.0 - 11.0 Positive >11.0 This test was developed and its performance characteristics determined by [employer]. It has not been cleared or approved by the Food and Drug Administration. Performed at: - [facility] [id number] [employer]: Nishi De La Cruz MD, Phone: [phone] 11 Negative 0 - 19 Weak Positive 20 - 30 Moderate to Strong Positive >30 12 Negative 0 - 19 Weak Positive 20 - 30 Moderate to Strong Positive >30 13 Negative 0 - 3 Weak Positive 4 - 10 Positive >10 Tissue Transglutaminase (tTG) has been identified as the endomysial antigen. Studies have demonstr- ated that endomysial IgA antibodies have over 99% specificity for gluten sensitive enteropathy. 14 Negative 0 - 5 Weak Positive 6 - 9 Positive >9 15 Patients should not be teste d for 72 hours post fluorescein dye angiography. A false depression of result may occur. 16 The [employer] COVID-19 MDx Ass ay is an endpoint RT-PCR assay ([employer])intended for the qualitative detection of nucleic acid from SARS-CoV-2 in nasopharyngeal swabs. COVID testing using the [employer] analyzer was developed for the purpose of [...] providers in consultation with public health authorities. 17 Stage G1 - Normal or high ki dney function The GFR is an estimate of the Glomerular Filtration Rate. It is an aid to assess a patient's renal function. It is not a conclusive diagnosis of kidney disease. GFR normal is >=90 The MDRD GFR calculation is considered valid between the ages of 18 and 75 years only. 18 Minimum Detectable Limit is 300 ng/mL. 19 Minimum Detectable Limit is 300 ng/mL. 20 Minimum Detectable Limit is 25 ng/mL. 21 Minimum Detectable Limit is 1000 mg/mL. 22 Mininum Detectable Limit is 300 ng/mL. 23 Minimum Detectable Limit is 300 ng/mL. 24 Minimum Detectable limit is 50 ng/dL. 25 Minimum Detectable limit is 10 ng/dL. All POSITIVE or BORDER results are unconfirmed. Please contact the laboratory if a reference testing confirmation is needed. 26 This is NOT the novel leon virus COVID-19 27 This is NOT the novel leon virus COVID-19 28 This is NOT the novel leon virus COVID-19 29 This is NOT the novel leon virus COVID-19 30 The Respiratory Panel is a m ultiplexed nucleic acid/PCR test. A negative result does not rule out the presence of PCR inhibitors in the patient sample or assay-specific nucleic acid concentrations below the level of detection by the assay. 31 THIS IS THE NOVEL CORONAVIRU S COVID-19 The [employer] Respiratory Panel is a multiplexed nucleic acid/PCR test. A negative result does not rule out the presence of PCR inhibitors in the patient sample or assay-specific nucleic acid concentrations below the level of detection by the assay. 32 Has Patient Fasted For The P ast 12 Hours? N 33 Stage G1 - Normal or high ki dney function The GFR is an estimate of the Glomerular Filtration Rate. It is an aid to assess a patient's renal function. It is not a conclusive diagnosis of kidney disease. GFR normal is >=90 The MDRD GFR calculation is considered valid between the ages of 18 and 75 years only. 34 Has Patient Fasted For The P ast 12 Hours? N 35 High levels of N-acetylcyste ine (used to treat Acetaminophen overdose) may cause interference and cause a negative bias in the Acetaminophen result. 36 Invalid due to elevated trig lycerides 37 Invalid due to elevated trig lycerides 38 Has Patient Fasted For The P ast 12 Hours? N 39 Vitamin D Status Range Deficiency <20 ng/ml Insufficiency 20-29.9 ng/ml Sufficiency 30-100 ng/ml Toxicity >100 ng/ml Patients should not be tested for 72 hours post fluorescein dye angiography. A false elevation of result may occur. 40 Has Patient Fasted For The P ast 12 Hours? N 41 Patients should not be teste d for 72 hours post fluorescein dye angiography. A false depression of result may occur. 42 Has Patient Fasted For The P ast 12 Hours? N 43 Non Reactive: Inconsistent w ith immunity, less than 10 mIU/mL Reactive: Consistent with immunity, greater than 9.9 mIU/mL 44 Non reactive HCV antibody sc reen is consistent with no HCV infection, unless recent infection is suspected or other evidence exists to indicate HCV infection. Performed at: RN - [facility] [address] [id number] [employer]: Nishi De La Cruz MD, Phone: [phone] 45 Time Post-Conception mIU/mL 7 to 10 days >3 30 days 100 to 500 40 days >200 0 10 weeks 50,0 00 to 140,000 14 weeks 10,0 00 to 50,000 Maximum levels of hCG can be reached by the second to third months following conception. Levels decrease to as low as 6000 by the third trimester. Testing was performed on the [employer] System. The methodology used detects the intact hCG molecule and free beta subunits of the hCG molecule. 46 Reference range is Negative To ensure best sensitivity, first morning void is recommended. Dilute, low specific gravity urine may give a falsely negative result. If is suspected, repeat testing with a new specimen 48-72 hours later. 47 Minimum Detectable Limit is 300 ng/mL. 48 Minimum Detectable Limit is 300 ng/mL. 49 Minimum Detectable Limit is 25 ng/mL. 50 Minimum Detectable Limit is 1000 mg/mL. 51 Mininum Detectable Limit is 300 ng/mL. 52 Minimum Detectable Limit is 300 ng/mL. 53 Minimum Detectable limit is 50 ng/dL. 54 Minimum Detectable limit is 10 ng/dL. All POSITIVE or BORDER results are unconfirmed. Please contact the laboratory if a reference testing confirmation is needed. Procedures Date Code Description Status 05/01/2021 17618 Office/Outpatient Established Hi gh MDM 40-54 Min Completed 04/03/2021 84262 Office/Outpatient Established Mo d MDM 30-39 Min Completed 12/25/2020 79903 Trans Of Care, Hfu W/In 14 Days Of Discharge Completed Medical Devices Description No Information Available Encounters Type Date Location Provider Dx Diagnosis Office Visit 05/01/2021 1:15p [facility] Edward Mina MD R 16.0 Hepatomegaly, not elsewhere classified K76.0 Fatty (change of) liver, not elsewhere classified R11.2 Nausea with vomiting, unspec ified G47.00 Insomnia, unspecified R19.7 Diarrhea, unspecified Z13.6 Encounter for screening for cardiovascular disorders Office Visit 04/03/2021 1:45p [facility] Edward Mina MD R 10.9 Unspecified abdominal pain K76.89 Other specified diseases of liver E11.9 Type 2 diabetes mellitus wit hout complications E78.5 Hyperlipidemia, unspecified E03.9 Hypothyroidism, unspecified Z13.6 Encounter for screening for cardiovascular disorders Z68.36 Body mass index [BMI] 36.0-3 6.9, adult Office Visit 12/25/2020 9:00a [facility] Edward Mina MD E 11.9 Type 2 diabetes mellitus without complications Z13.6 Encounter for screening for cardiovascular disorders E03.9 Hypothyroidism, unspecified F33.1 Major depressive disorder, r ecurrent, moderate Z68.38 Body mass index [BMI] 38.0-3 8.9, adult Assessments Date Code Description Provider 05/01/2021 R16.0 Hepatomegaly, not elsewhere clas sified Edward Mina MD 05/01/2021 K76.0 Fatty (change of) liver, not els ewhere classified Edward Mina MD 05/01/2021 R11.2 Nausea with vomiting, unspecifie d Edward Mina MD 05/01/2021 G47.00 Insomnia, unspecified Edward hays MD 05/01/2021 R19.7 Diarrhea, unspecified Edward hays MD 05/01/2021 Z13.6 Encounter for screening for card iovascular disorders Edward Mina MD 04/03/2021 R10.9 Unspecified abdominal pain Arsen Mina [...] index [BMI] 38.0-38.9, adult Edward Mina MD Plan of Treatment Future Appointment(s):* 08/01/2021 1:30 pm - Edward Mina MD at [facility] * 10/23/2021 2:15 pm - Edward Mina MD at [facility] 05/01/2021 - Edward Mina MD* R16.0 Hepatomegaly, not elsewhere classified * K76.0 Fatty (change of) liver, not elsewhere classified * R11.2 Nausea with vomiting, unspecified* New Medication:* Ondansetron HCL 8 mg - 1 tab every 8 hours as needed for nausea. * Ondansetron HCL 8 mg - 1 tab every 8 hours as needed for nausea. * G47.00 Insomnia, unspecified* New Medication:* Trazodone HCL 50 mg - 1hs - take one tablet by mouth at bedtime * R19.7 Diarrhea, unspecified* New Medication:* Diphenoxylate Hydrochloride/Atropine Sulfate 2.5-0.025 mg - take one tablet by mouth four times a day as needed for diarrhea (maximum daily dose = 4), stomach cramps and stomach pain * Z13.6 Encounter for screening for cardiovascular disorders * All * Follow up:* See back in 4 weeks Functional Status Description No Information Available Mental Status Description No Information Available Referrals Refer to Reason for Referral Status Appt Date [facility],pc 05 01 resent [facility] referral pc 04/25 resent 04/25 Referral Faxed CB Very high liver liver enzymes Sent [facility] [address], [address] [place] [id number] [phone] MD Yari Lindsey 04/11 MD Referral Center zafar howard to contact pt, they mailed them a letter CB 04/03/21 referral for [facility] submitted today 12 visits 04/03/21 09/30/21 Very high LFTs rule out biliary disease Scheduled 07/17/[address] [place] [address] [place] [id number] [phone]
--- OUTSIDE RECORDS SUMMARY | 2021-05-20 15:38 | CCD | Continuity of Care Document ---
Author Author Antonella REIS [facility] Organization Unknown Address [address] [place] [address] [place] [address] Phone [phone] Problems Description No Information Available Social History Type Date Description Comments Sex Unknown ETOH Use Rarely consumes alcohol Tobacco Use Start: Unknown Patient has never smoked Tobacco Use Start: Unknown The Patient Has Never Vaped Smoking Status Reviewed: 02/22/21 The Patient Has Never Vaped Allergies, Adverse Reactions, Alerts Description No Known Drug Allergies Medications Active Medications SIG Qnty Indications Ordering Provide r Date Cephalexin 500mg Capsules 1 tab by mouth twice a day x 7 days 14caps Alycia [place] JR. 02/22/2021 Buspar 30 mg bid Unknown Valium 0.25 mg prn Unknown Risperidone 1mg Tablets bid Unknown Levothyroxine Sodium 75mcg Capsules Unknown Glipizide 10 mg Unknown Hydroxyzine HCL Unknown 0 History Medications Loperamide HCL 2mg Capsules take 2 tablets (4mg) for first dose, then 1 tab (2mg) after each loose stool. no more than 16mg a day. 14caps R19.7 Lan Metz JR., M.D. - 09/30/2020 Immunizations Description No Information Available Vital Signs Date Vital Result Comment 02/22/2021 5:52pm BP Systolic 123 mmHg BP Diastolic 82 mmHg Heart Rate 114 /min Respiratory Rate 16 /min O2 % BldC Oximetry 97 % Body Temperature 98.9 F Weight 200.00 lb Height 60 inches 5'0" BMI (Body Mass Index) 39.1 kg/m2 Pain Level 2 09/27/2020 1:46pm BP Systolic 132 mmHg BP Diastolic 80 mmHg Heart Rate 80 /min Respiratory Rate 20 /min O2 % BldC Oximetry 99 % Body Temperature 97.7 F Weight 200.00 lb Height 60 inches 5'0" BMI (Body Mass Index) 39.1 kg/m2 Pain Level 0 Results Test Acquired Date Facility Test Result H/L Range Note Laboratory test finding 02/22/2021 [place] [id number] [phone] Urine Culture FULL REPORT IN L <SEE NOTE> Normal 1, 2 1 Rx Cephlex 2 FULL REPORT IN LAB NOTES (eC W and [facility]). SPECIMEN APPEARS CONTAMINATED Procedures Date Code Description Status 02/22/2021 73753 Office/Outpatient Established Lo w MDM 20-29 Min Completed 09/27/2020 59825 Office/Outpatient Established Mo d MDM 30-39 Min Completed 09/27/2020 66664 Visual Screening Anaid t Of Visual Acuity, Quantitative, Bilateral Completed 09/20/2020 58147 Office/Outpatient New SF MDM 15- 29 Minutes Completed Medical Devices Description No Information Available Encounters Type Date Location Provider Dx Diagnosis Office Visit 02/22/2021 5:10p Main Office RUBY Macdonald R4 2 Dizziness and giddiness R10.84 Generalized abdominal pain Office Visit 09/27/2020 1:45p [facility] Radha Guy, July P R73.9 Hyperglycemia, unspecified Office Visit 09/20/2020 9:45a [facility] July Smart P R19.7 Diarrhea, unspecified Z20.828 Contact w and exposure to ot h viral communicable diseases Assessments Date Code Description Provider 02/22/2021 R42 Dizziness and giddiness RUBY Ralph 02/22/2021 R10.84 Generalized abdominal pain RUBY Gomez 09/27/2020 R73.9 Hyperglycemia, unspecified Kiarra Guy NP 09/20/2020 R19.7 Diarrhea, unspecified Radha allen NP 09/20/2020 Z20.828 Contact with and (becerra spected) exposure to other viral communicable diseases Radha Guy NP Plan of Treatment No Information Available Functional Status Description No Information Available Mental Status Description No Information Available Referrals Description No Information Available
--- OUTSIDE RECORDS SUMMARY | 2021-05-20 15:38 | CCD | Continuity of Care Document ---
Author Author Antonella REIS [facility] Organization Unknown Address [address] [place] [address] [place] [address] Phone [phone] Problems Description No Information Available Social History [...] H/L Range Note Laboratory test finding 02/22/2021 [place] [address] [phone] Urine Culture <pending> Procedures Date Code Description Status 09/27/2020 63091 Office/Outpatient Established Mo d MDM 30-39 Min Completed 09/27/2020 85608 Visual Screening Anaid t Of Visual Acuity, Quantitative, Bilateral Completed 09/20/2020 14152 Office/Outpatient New [place] MDM 15- 29 Minutes Completed Medical Devices Description No Information Available Encounters Type Date Location Provider Dx Diagnosis Office Visit 09/27/2020 1:45p [facility] July Smart P R73.9 Hyperglycemia, unspecified Office Visit 09/20/2020 9:45a [facility] Radha Guy, N P R19.7 Diarrhea, unspecified Z20.828 Contact w and exposure to ot h viral communicable diseases Assessments Date Code Description Provider 09/27/2020 R73.9 Hyperglycemia, unspecified Kiarra Guy NP 09/20/2020 R19.7 Diarrhea, unspecified Radha allen, RANDY 09/20/2020 Z20.828 Contact with and (becerra spected) exposure to other viral communicable diseases Radha Guy NP Plan of Treatment 02/22/2021 - RUBY Macdonald* All * New Medication:* Cephalexin 500 mg - 1 tab by mouth twice a day x 7 days Functional Status Description No Information Available Mental Status Description No Information Available Referrals Description No Information Available
--- OUTSIDE RECORDS SUMMARY | 2021-05-20 15:38 | CCD | Continuity of Care Document ---
Author Author Antonella REIS [facility] Organization Unknown Address [address] [place] [address] [place] [address] Phone [phone] Problems Description No Information Available Social History [...] H/L Range Note Laboratory test finding 02/22/2021 [place] [id number] [place] [address] [phone] Urine Culture <pending> Procedures Date Code Description Status 02/22/2021 11467 Office/Outpatient Established Lo w MDM 20-29 Min Completed 09/27/2020 15069 Office/Outpatient Established Mo d MDM 30-39 Min Completed 09/27/2020 09393 Visual Screening Anaid t Of Visual Acuity, Quantitative, Bilateral Completed 09/20/2020 58194 Office/Outpatient New [place] MDM 15- 29 Minutes [...]
--- OUTSIDE RECORDS SUMMARY | 2021-05-20 15:38 | CCD | Continuity of Care Document ---
Author Author Antonella MINA MD Organization Unknown Address [address] [facility], [address] [place] [address] Phone [phone] Care Team Providers Care Machine Programmer Name Role Phone Misael Patel MD AUTM [phone] Edward Mina MD AUTM [phone] Problems Active Problems Provider Date Anxiety Onset: [...] day 150units E11.9 Edward Mina MD 07/03/2020 Code BluetotagWALLET Ultra 2 w/Device Kit as directed 1units [...] CPT Code Status Date Vaccine Lot # [id number] Given 04/05/2019 Influenza 36 Mos And Older Vital Signs Date Vital Result Comment 05/01/2021 1:04pm BP Systolic 124 mmHg BP Diastolic 88 mmHg Heart Rate 110 /min Body Temperature 97.9 F Height 60 inches 5'0" Weight 185.12 lb Weight 83.973 kg [place] Body Weight 100 lb BMI (Body Mass Index) 36.2 kg/m2 O2 % BldC Oximetry 97 % Pain Level 2 04/03/2021 1:40pm BP Systolic 102 mmHg BP Diastolic 80 mmHg Heart Rate 111 /min Body Temperature 97.0 F Height 60 inches 5'0" Weight 188.38 lb Weight 85.447 kg [place] Body Weight 100 lb BMI (Body Mass Index) 36.8 kg/m2 O2 % BldC Oximetry 98 % Pain Level 0 Results Test Acquired Date Facility Test Result H/L Range Note CMP W GFR 05/01/[address] [phone] Sodium 140 mEq/L Normal 135-145 Potassium 4.0 [...] g/dL Normal 1.0-3.0 Laboratory test finding 05/01/[address] [phone] Hemoglobin A1c <pending> Free T4 And TSH 05/01/[address] [phone] TSH <pending> Laboratory test finding 05/01/[address] [phone] Hepatitis C AB Screen 0.02 Index Normal 0.00-0.79 2 Hepatitis B Surface Antigen NEGATIVE Negative 3 CBC W/Auto Diff 05/01/[address] [phone] White Blood Count 10.15 10^3/uL Normal 4.00-10.50 [...] Lymph % (Auto) 49.0 % Normal 20.0-51.0 [place] % (Auto) 5.4 % Normal 2.0-15.0 Eos % (Auto) 1.8 % Normal 0.0-11.0 Baso % (Auto) 0.5 % Normal 0.0-2.0 Ig % (Auto) 0.4 % 1.00-5.00 Ig # (Auto) 0.0 10^3/uL <0.5 Gran # (Auto) 4.36 10^3/uL Normal 1.50-6.50 Lymph # (Auto) 5.0 k/uL Normal 1.0-5.0 [place] # (Auto) 0.55 k/uL Normal 0.20-1.50 Eos # (Auto) 0.18 10^3/uL Normal 0.00-1.10 Baso # (Auto) 0.05 10^3/uL Normal 0.00-0.20 Xray 05/01/[address] [phone] CT Abdomen W Contrast <pending> Xray 04/03/[address] [address] [phone] CT Abdomen W Contrast <pending> CBC W/Auto Diff 03/13/[address] [phone] White Blood Count 8.58 10^3/uL Normal 4.00-10.50 4 Red Blood Count 4.65 10^6/uL Normal 3.90-5.20 Hemoglobin 13.7 g/dL Normal 11.5-15.6 Hematocrit 42.2 % Normal 35.0-46.0 MCV 90.8 FL Normal 80.0-100.0 MCH 29.5 pg Normal 27.0-34.0 MCHC 32.5 g/dL Normal 32-36 RDW 11.9 % Normal 11.5-14.5 Platelet Count 414 10^3/uL High 130-400 MPV 11.3 FL Normal 8.7-13.2 Gran % (Auto) 47.5 % Normal 42.0-75.0 Lymph % (Auto) 45.3 % Normal 20.0-51.0 [place] % (Auto) 4.3 % Normal 2.0-15.0 Eos % (Auto) 2.3 % Normal 0.0-11.0 Baso % (Auto) 0.3 % Normal 0.0-2.0 Ig % (Auto) 0.3 % 1.00-5.00 Ig # (Auto) 0.0 10^3/uL <0.5 Gran # (Auto) 4.06 10^3/uL Normal 1.50-6.50 Lymph # (Auto) 3.9 k/uL Normal 1.0-5.0 [place] # (Auto) 0.37 k/uL Normal 0.20-1.50 Eos # (Auto) 0.20 10^3/uL Normal 0.00-1.10 Baso # (Auto) 0.03 10^3/uL Normal 0.00-0.20 Lipid Panel 03/13/[address] [phone] Triglycerides 454 mg/dL High 45-150 Cholesterol 358 mg/dL High 125-200 LDL Cholesterol TNP mg/dL 50-130 5 HDL Cholesterol 40 mg/dL Normal 32-96 Chol/HDL Ratio TNP 0-4.3 6 Laboratory test finding 03/13/[address] [phone] Glycosylated Hgba1c 7.4 % High 4.1-6.5 7 CMP W GFR 03/13/[address] [phone] Sodium 140 mEq/L Normal 135-145 Potassium 4.1 mEq/L Normal 3.5-5.3 Chloride 101 mEq/L Normal 94-110 Carbon Dioxide 27 mEq/L Normal 22-33 Anion Gap 16 Normal 5-16 Blood Urea Nitro 6 mg/dL Low 7-25 Creatinine 0.6 mg/dL Normal 0.6-1.4 GFR > 90.0 mL/min 8 BUN/Creat Ratio 10 Normal 8-36 Glucose 125 [...] 1.0-3.0 H Pylori AB G/A/M Serum 03/13/[address] [phone] H pylori IgG Ab,S 0.10 0.00-0.79 9 H pylori IgA Ab,S <9.0 units 0.0-8.9 10 H pylori IgM Ab,S <9.0 units 0.0-8.9 11 Celiac Disease Comprehensive 03/13/[address] [phone] Gliadin(Deam) Ab,IgA,S 2 units 0-19 12 Gliadin(Deam) Ab IgG,S 1 units 0-19 13 tTransglutaminase IgA,S <2 U/mL 0-3 14 tTransglutaminase IgG,S <2 U/mL 0-5 15 Endomysial Ab, IgA,S Negative Negative IgA, Qn,S 93 mg/dL 87-352 Urinalysis 03/13/[address] [phone] Color,Ur YELLOW Yellow Appearance,Ur CLEAR Clear PH,Ur 6.0 5.0-8.0 Specific [place],Ur 1.008 Normal 1.002-1.035 Protein,Ur NEGATIVE mg/dL Negative Glucose, Ur NEGATIVE mg/dL Negative Ketones,Ur TRACE mg/dL Negative Occult Blood,Ur NEGATIVE Negative Nitrate,Ur NEGATIVE Negative Leukocyte Esterase ,Ur NEGATIVE Negative Bilirubin,Ur NEGATIVE Negative Urobilinogen,Ur 0.2-1.0 EUMG/DL Neg-0-1.0 Free T4 And Total T4 03/13/[address] [phone] Free T4 (Free Thyroxine) 1.48 ng/dL Normal 0.76-1. 78 T4 (Thyroxine) 18.2 g/dL High 4.5-10.9 Laboratory test finding 03/13/[address] [phone] TSH 2.926 uIU/ML Normal 0.470-4.200 16 Laboratory test finding 11/27/[address] [phone] Covid 19 Rheonix NOT-DETECTED Notdetected 17 CMP W GFR 11/27/[address] [phone] Sodium 135 mEq/L Normal 135-145 Potassium 4.1 mEq/L Normal 3.5-5.3 Chloride 101 mEq/L Normal 94-110 Carbon Dioxide 26 mEq/L Normal 22-33 Anion Gap 12 Normal 5-16 Blood Urea Nitro 14 mg/dL Normal 7-25 Creatinine 0.8 mg/dL Normal 0.6-1.4 GFR > 90.0 mL/min 18 BUN/Creat Ratio 17 Normal 8-36 Glucose 235 mg/dL High 70-100 CA 10.2 mg/dL Normal 8.7-10.5 Bilirubin,Total 0.4 mg/dL Normal 0.1-1.3 Ast 136 U/L High 5-40 Alt 151 U/L High 5-48 Alkaline Phosphatase 102 U/L Normal 40-140 Total Protein 7.7 g/dL Normal 5.9-8.3 Albumin 5.7 g/dL High 3.0-5.1 Globulin 2.0 g/dL Normal 1.5-3.5 Alb/Glob Ratio 2.9 g/dL Normal 1.0-3.0 CBC W/Auto Diff 11/27/[address] [phone] White Blood Count 15.77 10^3/uL High 4.00-10.50 [...] Lymph % (Auto) 23.7 % Normal 20.0-51.0 [place] % (Auto) 3.7 % Normal 2.0-15.0 Eos % (Auto) 0.1 % Normal 0.0-11.0 Baso % (Auto) 0.4 % Normal 0.0-2.0 Ig % (Auto) 0.6 % 1.00-5.00 Ig # (Auto) 0.1 10^3/uL <0.5 Gran # (Auto) 11.28 10^3/uL High 1.50-6.50 Lymph # (Auto) 3.7 k/uL Normal 1.0-5.0 [place] # (Auto) 0.58 k/uL Normal 0.20-1.50 Eos # (Auto) 0.02 10^3/uL Normal 0.00-1.10 Baso # (Auto) 0.06 10^3/uL Normal 0.00-0.20 Laboratory test finding 11/27/[address] [phone] [place] 0.6 mEq/L Normal 0.5-1.5 Emergency Drug Screen 11/27/[address] [phone] Opiate Screen NEG Negative 19 Barbiturate Screen NEG Negative 20 Phencyclidine Screen NEG Negative 21 Amphetamine Screen NEG Negative 22 Benzodiazepine Screen POS Negative 23 Cocaine Screen NEG Negative 24 Cannabinoid Screen NEG Negative 25 Heroin Screen NEG Negative 26 Urinalysis 11/27/[address] [phone] Color,Ur YELLOW Yellow Appearance,Ur CLEAR Clear PH,Ur 6.0 5.0-8.0 Specific [place],Ur 1.016 Normal 1.002-1.035 Protein,Ur NEGATIVE mg/dL Negative Glucose, Ur NEGATIVE mg/dL Negative Ketones,Ur NEGATIVE mg/dL Negative Occult Blood,Ur NEGATIVE Negative Nitrate,Ur NEGATIVE Negative Leukocyte Esterase ,Ur NEGATIVE Negative Bilirubin,Ur NEGATIVE Negative Urobilinogen,Ur 0.2-1.0 EUMG/DL Neg-0-1.0 Respiratory PNL Covid Only 11/14/[address] [phone] Adenovirus Not Detected NotDetected Coronavirus 229E Not Detected NotDetected 27 Coronavirus Hku1 Not Detected NotDetected 28 Coronavirus NL63 Not Detected NotDetected 29 Coronavirus Oc43 Not Detected NotDetected 30 Human Metapneumovirus Not Detected NotDetected Human Rhinovirus/ENT [...] Detected NotDetected Mycoplasma Pneumoniae Not Detected NotDetected 31 Coronavirus 2 (Sars-CoV-2) NOT-DETECTED Notdetected 32 CBC W/Auto Diff 11/14/[address] [phone] White Blood Count 10.21 10^3/uL Normal 4.00-10.50 [...] Lymph % (Auto) 30.7 % Normal 20.0-51.0 [place] % (Auto) 4.5 % Normal 2.0-15.0 Eos % (Auto) 2.4 % Normal 0.0-11.0 Baso % (Auto) 0.4 % Normal 0.0-2.0 Ig % (Auto) 0.5 % 1.00-5.00 Ig # (Auto) 0.1 10^3/uL <0.5 Gran # (Auto) 6.29 10^3/uL Normal 1.50-6.50 Lymph # (Auto) 3.1 k/uL Normal 1.0-5.0 [place] # (Auto) 0.46 k/uL Normal 0.20-1.50 Eos # (Auto) 0.24 10^3/uL Normal 0.00-1.10 Baso # (Auto) 0.04 10^3/uL Normal 0.00-0.20 Laboratory test finding 11/14/[address] [phone] Blood Alcohol < 0.03 % <0.03 33 CMP W GFR 11/14/[address] [phone] Sodium 138 mEq/L Normal 135-145 Potassium 3.8 mEq/L Normal 3.5-5.3 Chloride 104 mEq/L Normal 94-110 Carbon Dioxide 25 mEq/L Normal 22-33 Anion Gap 13 Normal 5-16 Blood Urea Nitro 9 mg/dL Normal 7-25 Creatinine 0.7 mg/dL Normal 0.6-1.4 GFR > 90.0 mL/min 34 BUN/Creat Ratio 12 Normal 8-36 Glucose 222 mg/dL High 70-100 CA 9.9 mg/dL Normal 8.7-10.5 Bilirubin,Total 0.4 mg/dL Normal 0.1-1.3 Ast 205 U/L High 5-40 Alt 170 U/L High 5-48 Alkaline Phosphatase 104 U/L Normal 40-140 Total Protein 7.1 g/dL Normal 5.9-8.3 Albumin 5.2 g/dL High 3.0-5.1 Globulin 1.9 g/dL Normal 1.5-3.5 Alb/Glob Ratio 2.7 g/dL Normal 1.0-3.0 Laboratory test finding 11/14/[address] [phone] Salicylate < 3.0 mg/dL Normal 2.8-20.0 35 Acetaminophen < 2.0 UG/ML Low 10-30 36 Lipid Panel 11/14/[address] [phone] Triglycerides 522 mg/dL High 45-150 Cholesterol 376 mg/dL High 125-200 LDL Cholesterol TNP mg/dL 50-130 37 HDL Cholesterol 42 mg/dL Normal 32-96 Chol/HDL Ratio TNP 0-4.3 38 Laboratory test finding 11/14/[address] [phone] Folate 13.05 NG/ML Normal 3.40-24.00 39 Vitamin D,25-Hydroxy 8.8 ng/ml Low 30-100 40 Free T4 (Free Thyroxine) 1.45 ng/dL Normal 0.76-1.78 41 TSH 3.610 uIU/ML Normal 0.470-4.200 42 Glycosylated Hgba1c 7.3 % High 4.1-6.5 43 HP5+Havigm+Hbcigm,S 11/14/[address] [phone] Hepatitis A Antibody, IgM,S Negative Nega tive Hepatitis A Antibody, Total,S Positive Abnormal Negative Hepatitis B Surf Antigen SCRN Negative Negative Hepatitis B Core Antibody,Igm Negative Negative Hep B Core Antibody,Total Negative Negative Hepatitis B Surface Antibody Non Reactive . 44 HCV Ab,S <0.1 s/coratio 0.0-0.9 HCV Comment (SEE NOTE) 45 Laboratory test finding 11/14/[address] [phone] HCG Quantitative < 3 mIU/ml 46 Urinalysis 11/14/[address] [phone] Color,Ur YELLOW Yellow Appearance,Ur CLEAR Clear PH,Ur 6.0 5.0-8.0 Specific [place],Ur 1.009 Normal 1.002-1.035 Protein,Ur NEGATIVE mg/dL Negative Glucose, Ur NEGATIVE mg/dL Negative Ketones,Ur NEGATIVE mg/dL Negative Occult Blood,Ur NEGATIVE Negative Nitrate,Ur NEGATIVE Negative Leukocyte Esterase ,Ur TRACE Abnormal Negative Bilirubin,Ur NEGATIVE Negative Urobilinogen,Ur 0.2-1.0 EUMG/DL Neg-0-1.0 RBC,Ur 3-9 PERHPF Abnormal 0-2 WBC,Ur <5 PERHPF <5 Urine Epith MODERATE PER/LPF Few-Mod Bacteria,Ur RARE PERHPF None Mucus,Ur RARE PERHPF None Seen Laboratory test finding 11/14/[address] [phone] HCG Qualitative Specimen URINE *HCG Qualitative Urine NEGATIVE 47 Emergency Drug Screen 11/14/[address] [phone] Opiate Screen NEG Negative 48 Barbiturate Screen NEG Negative 49 Phencyclidine Screen NEG Negative 50 Amphetamine Screen NEG Negative 51 Benzodiazepine Screen POS Negative 52 Cocaine Screen NEG Negative 53 Cannabinoid Screen POS Negative 54 Heroin Screen NEG Negative 55 1 Stage G1 - Normal or high [...] @Order Comment FASTING 12 HO UR 4 repeat blood work and ultras ound has been ordered 5 Invalid due to elevated trig lycerides 6 Invalid due to elevated trig lycerides 7 @Has Patient Fasted For The Past 12 Hours? Yes @Order Comment FASTING 12 HOUR 8 Stage G1 - Normal or high ki dney function The GFR is an estimate of the Glomerular Filtration Rate. It is an aid to assess a patient's renal function. It is not a conclusive diagnosis of kidney disease. GFR normal is >=90 The MDRD GFR calculation is considered valid between the ages of 18 and 75 years only. 9 Result Units: Index Value Negative <0.80 Equivocal 0.80 - 0.89 Positive >0.89 10 Negative <9.0 Equivocal 9.0 - 11.0 Positive >11.0 11 Negative <9.0 Equivocal 9.0 - 11.0 Positive >11.0 This test was developed and its performance characteristics determined by [employer]. It has not been cleared or approved by the Food and Drug Administration. Performed at: - [facility] [address] [id number] [employer] Plant Operator: Nishi De La Cruz MD, Phone: [phone] 12 Negative 0 - 19 Weak Positive 20 - 30 Moderate to Strong Positive >30 13 Negative 0 - 19 Weak Positive 20 - 30 Moderate to Strong Positive >30 14 Negative 0 - 3 Weak Positive 4 - 10 Positive >10 Tissue Transglutaminase (tTG) has been identified as the endomysial antigen. Studies have demonstr- ated that endomysial IgA antibodies have over 99% specificity for gluten sensitive enteropathy. 15 Negative 0 - 5 Weak Positive 6 - 9 Positive >9 16 Patients should not be teste d for 72 hours post fluorescein dye angiography. A false depression of result may occur. 17 The ID.me COVID-19 MDx Ass ay is an endpoint RT-PCR assay (Winestyr)intended for the qualitative detection of nucleic acid from SARS-CoV-2 in nasopharyngeal swabs. COVID testing using the ID.me analyzer was developed for the purpose of [...] providers in consultation with public health authorities. 18 Stage G1 - Normal or high ki dney function The GFR is an estimate of the Glomerular Filtration Rate. It is an aid to assess a patient's renal function. It is not a conclusive diagnosis of kidney disease. GFR normal is >=90 The MDRD GFR calculation is considered valid between the ages of 18 and 75 years only. 19 Minimum Detectable Limit is 300 ng/mL. 20 Minimum Detectable Limit is 300 ng/mL. 21 Minimum Detectable Limit is 25 ng/mL. 22 Minimum Detectable Limit is 1000 mg/mL. 23 Mininum Detectable Limit is 300 ng/mL. 24 Minimum Detectable Limit is 300 ng/mL. 25 Minimum Detectable limit is 50 ng/dL. 26 Minimum Detectable limit is 10 ng/dL. All POSITIVE or BORDER results are unconfirmed. Please contact the laboratory if a reference testing confirmation is needed. 27 This is NOT the novel leon virus COVID-19 28 This is NOT the novel leon virus COVID-19 29 This is NOT the novel leon virus COVID-19 30 This is NOT the novel leon virus COVID-19 31 The Respiratory Panel is a m ultiplexed nucleic acid/PCR test. A negative result does not rule out the presence of PCR inhibitors in the patient sample or assay-specific nucleic acid concentrations below the level of detection by the assay. 32 THIS IS THE NOVEL CORONAVIRU S COVID-19 The [facility] Respiratory Panel is a multiplexed nucleic acid/PCR test. A negative result does not rule out the presence of PCR inhibitors in the patient sample or assay-specific nucleic acid concentrations below the level of detection by the assay. 33 Has Patient Fasted For The P ast 12 Hours? N 34 Stage G1 - Normal or high ki dney function The GFR is an estimate of the Glomerular Filtration Rate. It is an aid to assess a patient's renal function. It is not a conclusive diagnosis of kidney disease. GFR normal is >=90 The MDRD GFR calculation is considered valid between the ages of 18 and 75 years only. 35 Has Patient Fasted For The P ast 12 Hours? N 36 High levels of N-acetylcyste ine (used to treat Acetaminophen overdose) may cause interference and cause a negative bias in the Acetaminophen result. 37 Invalid due to elevated trig lycerides 38 Invalid due to elevated trig lycerides 39 Has Patient Fasted For The P ast 12 Hours? N 40 Vitamin D Status Range Deficiency <20 ng/ml Insufficiency 20-29.9 ng/ml Sufficiency 30-100 ng/ml Toxicity >100 ng/ml Patients should not be tested for 72 hours post fluorescein dye angiography. A false elevation of result may occur. 41 Has Patient Fasted For The P ast 12 Hours? N 42 Patients should not be teste d for 72 hours post fluorescein dye angiography. A false depression of result may occur. 43 Has Patient Fasted For The P ast 12 Hours? N 44 Non Reactive: Inconsistent w ith immunity, less than 10 mIU/mL Reactive: Consistent with immunity, greater than 9.9 mIU/mL 45 Non reactive HCV antibody sc reen is consistent with no HCV infection, unless recent infection is suspected or other evidence exists to indicate HCV infection. Performed at: RN - [facility] [address] [id number] [employer] Operator: Nishi De La Cruz MD, Phone: [phone] 46 Time Post-Conception mIU/mL 7 to 10 days >3 30 days 100 to 500 40 days >200 0 10 weeks 50,0 00 to 140,000 14 weeks 10,0 00 to 50,000 Maximum levels of hCG can be reached by the second to third months following conception. Levels decrease to as low as 6000 by the third trimester. Testing was performed on the [employer] System. The methodology used detects the intact hCG molecule and free beta subunits of the hCG molecule. 47 Reference range is Negative To ensure best sensitivity, first morning void is recommended. Dilute, low specific gravity urine may give a falsely negative result. If is suspected, repeat testing with a new specimen 48-72 hours later. 48 Minimum Detectable Limit is 300 ng/mL. 49 Minimum Detectable Limit is 300 ng/mL. 50 Minimum Detectable Limit is 25 ng/mL. 51 Minimum Detectable Limit is 1000 mg/mL. 52 Mininum Detectable Limit is 300 ng/mL. 53 Minimum Detectable Limit is 300 ng/mL. 54 Minimum Detectable limit is 50 ng/dL. 55 Minimum Detectable limit is 10 ng/dL. All POSITIVE or BORDER results are unconfirmed. Please contact the laboratory if a reference testing confirmation is needed. Procedures Date Code Description Status 05/01/2021 01083 Office/Outpatient Established Hi gh MDM 40-54 Min Completed 04/03/2021 73013 Office/Outpatient Established Mo d MDM 30-39 Min Completed 12/25/2020 10574 Trans Of Care, Hfu W/In 14 Days Of Discharge Completed Medical Devices Description No Information Available Encounters Type Date Location Provider Dx Diagnosis Office Visit 05/01/2021 1:15p [facility] Edward Mina MD R 16.0 Hepatomegaly, not elsewhere classified K76.0 Fatty (change of) liver, not elsewhere classified R11.2 Nausea with vomiting, unspec ified G47.00 Insomnia, unspecified R19.7 Diarrhea, unspecified Z13.6 Encounter for screening for cardiovascular disorders Office Visit 04/03/2021 1:45p [facility] Edward Mina MD R 10.9 Unspecified abdominal pain K76.89 Other specified diseases of liver E11.9 Type 2 diabetes mellitus wit hout complications E78.5 Hyperlipidemia, unspecified E03.9 Hypothyroidism, unspecified Z13.6 Encounter for screening for cardiovascular disorders Z68.36 Body mass index [BMI] 36.0-3 6.9, adult Office Visit 12/25/2020 9:00a [facility] Edward Mina MD E 11.9 Type 2 [...] 1:30 pm - Edward Mina MD at [facility] * 10/23/2021 2:15 pm - Edward Mina MD at [facility] 05/01/2021 - Edward Mina MD* R16.0 Hepatomegaly, [...] Dr Reason for Referral Status Appt Date [facility]pc 05 01 resent [facility] referral 04/25 resent 04/25 Referral Faxed CB Very high liver liver enzymes Sent [facility] [address], [address] [place] [id number] [phone] MD [facility] 04/11 MD Referral Center unab le to contact pt, they mailed them a letter CB 04/03/21 referral for [facility] submitted today 12 visits 04/03/21 09/30/21 Very high LFTs rule out biliary disease Scheduled 07/17/[address] [place] [address] [phone]
[2021-05-20] MEDS ORDERED: LORY1TAB2 (15:52)
[2021-05-20] MEDS ORDERED: LEVO75TA4 PO (15:52)
[2021-05-20] MEDS ORDERED: DIPH2.5T15 (15:52)
[2021-05-20] MEDS ORDERED: GABAPENTIN 300 MG CAP PO ONE (18:15)
[2021-05-20 19:04] LABS: BASO % 0.4 % (0.0-1.0); EOS # 0.2 10^3/uL (0.0-0.5); EOS % 1.6 % (0.0-3.0); HEMOGLOBIN 13.2 g/dl (12.0-15.5); LYMPH # 3.9 10^3/uL (1.5-5.0); LYMPH % 35.9 % (24.0-44.0); MEAN CORPUSCULAR HEMOGLOBIN 29.3 pg (27.0-33.0); MEAN CORPUSCULAR HGB CONC 32.2 g/dl (32.0-36.5); MEAN CORPUSCULAR VOLUME 90.9 fl (80.0-96.0); MONO # 0.5 10^3/uL (0.0-0.8); MONO % 4.7 % (2.0-8.0); NEUTROPHILS # 6.2 10^3/uL (1.5-8.5); NEUTROPHILS % 57.1 % (36.0-66.0); PLATELET COUNT, AUTOMATED 441 10^3/uL (150-450); RED BLOOD COUNT 4.51 10^6/uL (4.00-5.40); WHITE BLOOD COUNT 10.8 10^3/uL (4.0-10.0)
[2021-05-20 19:22] LABS: ERYTHROCYTE SEDIMENTATION RATE 49 mm/hr (0-20)
[2021-05-20 19:37] LABS: BLOOD UREA NITROGEN 5 MG/DL (7-18); C REACTIVE PROTEIN QUANTITATIV 1.17 MG/DL (0.00-0.30); CALCIUM LEVEL 9.6 MG/DL (8.5-10.1); CARBON DIOXIDE LEVEL 25 MEQ/L (21-32); CHLORIDE LEVEL 108 MEQ/L (98-107); FREE THYROXINE INDEX 5.5 % (1.3-4.8); GLOMERULAR FILTRATION RATE > 60.0 (>60); GLUCOSE, FASTING 88 MG/DL (70-100); MAGNESIUM LEVEL 2.2 MG/DL (1.8-2.4); POTASSIUM SERUM 3.8 MEQ/L (3.5-5.1); SODIUM LEVEL 140 MEQ/L (136-145); T UPTAKE 27 % (30-39); THYROXINE (T4) 20.4 UG/DL (4.5-12.0)
--- NOTE | 2021-05-20 19:55 | REPVR ---
PROCEDURE INFORMATION: Exam: CT Head Without Contrast Exam date and time: 05/20/2021 7:12 PM Age: 21 years old Clinical indication: Dizziness; Additional info: Upper ext. Tingling, weakness, dizziness on/off TECHNIQUE: Imaging protocol: Computed tomography of the head without contrast. Axial and coronal reformatted images were created and reviewed. Radiation optimization: All CT scans at this facility use at least one of these dose optimization techniques: automated exposure control; mA and/or kV adjustment per patient size (includes targeted exams where dose is matched to clinical indication); or iterative reconstruction. COMPARISON: No relevant prior studies available. FINDINGS: Brain: No CT evidence of acute intracranial hemorrhage or acute territorial infarction. No significant mass effect or midline shift. Basal cisterns patent. Cerebral ventricles: Normal in size and configuration. Paranasal sinuses: Unremarkable. No fluid levels. Mastoid air cells: Grossly unremarkable. Bones/joints: No acute osseous abnormality. Soft tissues: Grossly unremarkable. IMPRESSION: No CT evidence of acute intracranial pathology. Electronically signed by: Indra Faust On 05/20/2021 19:55:42 PM
--- NOTE | 2021-05-20 19:57 | REPVR ---
PROCEDURE INFORMATION: Exam: CT Cervical Spine Without Contrast Exam date and time: 05/20/2021 7:12 PM Age: 21 years old Clinical indication: Weakness; Additional info: Upper ext. Tingling, weakness, dizziness on/off TECHNIQUE: Imaging protocol: Computed tomography images of the cervical spine without contrast. Axial, coronal and sagittal reformatted images were created and reviewed. Radiation optimization: All CT scans at this facility use at least one of these dose optimization techniques: automated exposure control; mA and/or kV adjustment per patient size (includes targeted exams where dose is matched to clinical indication); or iterative reconstruction. COMPARISON: No relevant prior studies available. FINDINGS: Bones/joints: Straightening of the normal cervical lordosis. No CT evidence of acute fracture, dislocation or subluxation. Alignment anatomic. Vertebral body heights maintained. Discs/Spinal canal/Neural foramina: Intervertebral disc spaces preserved. No significant spinal canal or neural foraminal stenosis. Lungs: Grossly unremarkable. Soft tissues: Grossly unremarkable. IMPRESSION: 1. No CT evidence of acute cervical spine traumatic injury. 2. Additional findings, as above. Electronically signed by: Indra Faust On 05/20/2021 19:57:20 PM
[2021-05-20] MEDS ORDERED: NEUR300C PO (21:03)
[2021-05-20 21:17] VITALS: BP 138/91
== END 2021-05-20 21:19 | disposition home or self-care (01) ==
LOC: M ED 15:27
DX: M62.81 Muscle weakness (generalized) (principal); R25.1 Tremor, unspecified; E11.9 Type 2 diabetes mellitus without complications; Z79.84 Long term (current) use of oral hypoglycemic drugs

== ENCOUNTER → 2021-06-20 | Outpatient (CLI) | payer OTHER ==
[~2021-06-20] MED LIST changes: +DIPH2.5T15; +LEVO75TA4 PO; +LORY1TAB2; +NEUR300C PO
[2021-06-20 12:51] LABS: RHEUMATOID FACTOR QUANT < 10.0 IU/ML (<15.0); TOTAL PROTEIN 8.1 GM/DL (6.4-8.2)
[2021-06-20 14:09] LABS: TOTAL 25(OH) VITAMIN D 21.2 NG/ML (30.0-100.0); VITAMIN B12 LEVEL 371 PG/ML
[2021-06-20 14:31] LABS: FOLATE 4.5 NG/ML
[2021-06-21 11:25] LABS: ALBUMIN 4.77 GM/DL (3.29-5.55); ALBUMIN % 58.9 % (55.8-66.1); ALPHA-1-GLOBULIN % 5.1 % (2.9-4.9); ALPHA-1-GLOBULINS 0.41 GM/DL (0.17-0.41); ALPHA-2-GLOBULINS 1.19 GM/DL (0.42-0.99); ALPHA-2-GLOBULINS % 14.7 % (7.1-11.8); BETA-1-GLOBULINS 0.62 GM/DL (0.28-0.60); BETA-1-GLOBULINS % 7.7 % (4.7-7.2); BETA-2-GLOBULINS 0.46 GM/DL (0.19-0.55); BETA-2-GLOBULINS % 5.7 % (3.2-6.5); GAMMA GLOBULIN % 7.9 % (11.1-18.8); GAMMA GLOBULINS 0.64 GM/DL (0.65-1.58)
[2021-06-28 15:10] LABS: ANTINUCLEAR ANTIBODIES DIRECT Negative (Negative); COPPER PLASMA 243 ug/dL (80-158); Lyme Disease IgG/IgM Antibodie <0.91 ISR (0.00-0.90); Lyme Disease IgM Ab Quantitati <0.80 index (0.00-0.79); VITAMIN B1 LEVEL WHOLE BLOOD 143.8 nmol/L (66.5-200.0); VITAMIN B6,PYRIDOXAL PHOSPHATE 5.1 ug/L (2.0-32.8); VITAMIN E(ALPHA TOCOPHEROL) 16.7 mg/L (5.9-19.4); VITAMIN E(GAMMA TOCOPHEROL) 3.9 mg/L (0.7-4.9)
== END ==
LOC: M WUC 10:38
PROVIDERS: ATTEND Psychiatry & Neurology Neurology
DX: G62.9 Polyneuropathy, unspecified (principal); R53.1 Weakness; R20.0 Anesthesia of skin

== ENCOUNTER → 2021-11-05 | Outpatient (CLI) | payer OTHER ==
[2021-11-05 13:04] LABS: BASO # 0.1 10^3/uL (0.0-0.2); BASO % 0.5 % (0.0-1.0); EOS # 0.2 10^3/uL (0.0-0.5); EOS % 1.7 % (0.0-3.0); HEMATOCRIT 41.2 % (36.0-47.0); HEMOGLOBIN 13.1 g/dl (12.0-15.5); LYMPH # 4.7 10^3/uL (1.5-5.0); LYMPH % 41.3 % (24.0-44.0); MEAN CORPUSCULAR HEMOGLOBIN 30.2 pg (27.0-33.0); MEAN CORPUSCULAR HGB CONC 31.8 g/dl (32.0-36.5); MEAN CORPUSCULAR VOLUME 94.9 fl (80.0-96.0); MONO # 0.5 10^3/uL (0.0-0.8); MONO % 4.3 % (2.0-8.0); NEUTROPHILS # 5.8 10^3/uL (1.5-8.5); NEUTROPHILS % 51.8 % (36.0-66.0); PLATELET COUNT, AUTOMATED 430 10^3/uL (150-450); RED BLOOD COUNT 4.34 10^6/uL (4.00-5.40); WHITE BLOOD COUNT 11.3 10^3/uL (4.0-10.0)
[2021-11-05 13:16] LABS: INR 1.09; PROTHROMBIN TIME 14.5 SECONDS (12.7-14.5)
[2021-11-05 13:17] LABS: PARTIAL THROMBOPLASTIN TIME 34.6 SECONDS (25.9-37.0)
== END ==
LOC: M WUC 10:22
PROVIDERS: ATTEND Physician Assistant Surgical
DX: R79.89 Other specified abnormal findings of blood chemistry (principal); K76.0 Fatty (change of) liver, not elsewhere classified

== ENCOUNTER → 2021-11-08 | Outpatient (REF) | payer OTHER | LOC: M LAB REF 10:04 | PROVIDERS: ATTEND Physician Assistant Surgical | DX: K52.9 Noninfective gastroenteritis and colitis, unspecified (principal); R10.13 Epigastric pain; K76.0 Fatty (change of) liver, not elsewhere classified; R79.89 Other specified abnormal findings of blood chemistry ==

== ENCOUNTER → 2022-02-21 | Outpatient (REF) | payer OTHER ==
[2022-02-21 12:48] LABS: BASO % 0.3 % (0.0-1.0); EOS # 0.2 10^3/uL (0.0-0.5); HEMATOCRIT 40.4 % (36.0-47.0); HEMOGLOBIN 12.8 g/dl (12.0-15.5); LYMPH # 4.5 10^3/uL (1.5-5.0); LYMPH % 40.8 % (24.0-44.0); MEAN CORPUSCULAR HEMOGLOBIN 30.3 pg (27.0-33.0); MEAN CORPUSCULAR HGB CONC 31.7 g/dl (32.0-36.5); MEAN CORPUSCULAR VOLUME 95.7 fl (80.0-96.0); MONO # 0.5 10^3/uL (0.0-0.8); MONO % 4.3 % (2.0-8.0); NEUTROPHILS # 5.7 10^3/uL (1.5-8.5); NEUTROPHILS % 52.1 % (36.0-66.0); PLATELET COUNT, AUTOMATED 368 10^3/uL (150-450); RED BLOOD COUNT 4.22 10^6/uL (4.00-5.40); WHITE BLOOD COUNT 10.9 10^3/uL (4.0-10.0)
[2022-02-21 13:21] LABS: ERYTHROCYTE SEDIMENTATION RATE 36 mm/hr (0-20)
[2022-02-21 13:24] LABS: ALBUMIN 3.6 GM/DL (3.2-5.2); ALT/SGPT 169 U/L (12-78); BILIRUBIN,TOTAL 0.2 MG/DL (0.2-1.0); BLOOD UREA NITROGEN 11 MG/DL (7-18); C REACTIVE PROTEIN QUANTITATIV 0.78 MG/DL (0.00-0.30); CALCIUM LEVEL 9.1 MG/DL (8.5-10.1); CARBON DIOXIDE LEVEL 25 MEQ/L (21-32); CHLORIDE LEVEL 111 MEQ/L (98-107); CREATININE FOR GFR 0.66 MG/DL (0.55-1.30); GLOMERULAR FILTRATION RATE > 60.0 (>60); GLUCOSE, FASTING 130 MG/DL (70-100); POTASSIUM SERUM 4.1 MEQ/L (3.5-5.1); SODIUM LEVEL 142 MEQ/L (136-145); TOTAL PROTEIN 7.3 GM/DL (6.4-8.2)
== END ==
LOC: M SFHCRHEU 08:48
PROVIDERS: ATTEND Internal Medicine Rheumatology
DX: M35.3 Polymyalgia rheumatica (principal); R79.82 Elevated C-reactive protein (CRP)

== ENCOUNTER 2022-03-13 01:54 | Inpatient (IN) | payer OTHER ==
[~2022-03-13] VITALS: Ht 152.4 cm; Wt 80.9 kg
[2022-03-13] MEDS ORDERED: YAZ1TAB PO (02:01)
[2022-03-13] MEDS ORDERED: PREG100CA PO ×2 (02:01→06:39)
[2022-03-13] MEDS ORDERED: ATOR80TA59 PO (02:01)
[2022-03-13] MEDS ORDERED: KLON1TAB PO (02:01)
[2022-03-13] MEDS ORDERED: TOPI100T9 PO (02:01)
[2022-03-13 02:44] LABS: MEAN CORPUSCULAR HEMOGLOBIN 30.8 pg (27.0-33.0); MEAN CORPUSCULAR HGB CONC 33.3 g/dl (32.0-36.5); MEAN CORPUSCULAR VOLUME 92.5 fl (80.0-96.0); PLATELET COUNT, AUTOMATED 343 10^3/uL (150-450); RED BLOOD COUNT 3.89 10^6/uL (4.00-5.40); WHITE BLOOD COUNT 10.2 10^3/uL (4.0-10.0)
[2022-03-13 03:35] LABS: HCG, SERUM QUALITATIVE NEGATIVE (NEGATIVE)
[2022-03-13 03:55] LABS: AMPHETAMINES LEVEL URINE NEGATIVE (NEGATIVE); BARBITURATES URINE NEGATIVE (NEGATIVE); BENZODIAZEPINES URINE POSITIVE (NEGATIVE); CANNABINOIDS URINE NEGATIVE (NEGATIVE); COCAINE METABOLITE URINE NEGATIVE (NEGATIVE); METHADONE URINE NEGATIVE (NEGATIVE); OPIATES URINE NEGATIVE (NEGATIVE); PHENCYCLIDINE URINE NEGATIVE (NEGATIVE)
[2022-03-13 03:58] LABS: ACETAMINOPHEN LEVEL < 2.0 UG/ML (10.0-30.0); ALBUMIN 3.6 GM/DL (3.2-5.2); ALT/SGPT 157 U/L (12-78); BILIRUBIN,DIRECT 0.2 MG/DL (0.0-0.2); BILIRUBIN,TOTAL 0.3 MG/DL (0.2-1.0); BLOOD UREA NITROGEN 5 MG/DL (7-18); CALCIUM LEVEL 8.9 MG/DL (8.5-10.1); CARBON DIOXIDE LEVEL 24 MEQ/L (21-32); CHLORIDE LEVEL 109 MEQ/L (98-107); CREATININE FOR GFR 0.76 MG/DL (0.55-1.30); ETHYL ALCOHOL (ETHANOL) < 0.003 % (0.000-0.010); GLOMERULAR FILTRATION RATE > 60.0 (>60); GLUCOSE, FASTING 247 MG/DL (70-100); POTASSIUM SERUM 3.1 MEQ/L (3.5-5.1); SALICYLATE LEVEL < 1.7 MG/DL (5.0-30.0); SODIUM LEVEL 140 MEQ/L (136-145)
[2022-03-13 04:05] LABS: RSV AMPLIFICATION NEGATIVE (NEGATIVE)
[2022-03-13 05:31] LABS: MAGNESIUM LEVEL 2.2 MG/DL (1.8-2.4)
[2022-03-13] MEDS ORDERED: POTASSIUM CHLORIDE 10MEQ SR TABLET PO ONE (06:00)
[2022-03-13] MEDS ORDERED: D 1010004 PO (06:39)
[2022-03-13] MEDS ORDERED: VITATAB73 PO (06:39)
[2022-03-13] MEDS ORDERED: GLIP10TA18 PO (06:39)
[2022-03-13] MEDS ORDERED: SYNT75TA PO (06:39)
[2022-03-13] MEDS ORDERED: CLON1TAB8 PO (06:39)
[2022-03-13] MEDS ORDERED: ATOR1TAB19 PO (06:39)
[2022-03-13] MEDS ORDERED: TOPI50TA9 PO (06:39)
[2022-03-13] MEDS ORDERED: LORY1TAB2 PO (06:39)
[2022-03-13] MEDS ORDERED: HOME MED LIST COMPLETE! XX SCH (06:40)
[2022-03-13] MEDS ORDERED: PREGABALIN 100 MG CAP (LYRICA) PO ONE (12:40)
[2022-03-13] MEDS ORDERED: clonazePAM 1 MG TAB PO ONE ×2 (12:40)
[2022-03-13] MEDS ORDERED: ATORVASTATIN 20 MG TAB PO ONE (12:40)
[2022-03-13] MEDS ORDERED: glipiZIDE (GLUCOTROL) 5 MG TAB PO ONE (12:55)
[2022-03-13] MEDS: clonazePAM 1 MG TAB PO SCH ×2 (13:19→20:37)
[2022-03-13] MEDS: LEVOTHYROXINE 75MCG TABLET (0.075MG) PO SCH (13:19)
[2022-03-13] MEDS: PREGABALIN 100 MG CAP (LYRICA) PO SCH ×2 (16:10→20:37)
[2022-03-13] MEDS: glipiZIDE XL 5 MG TABCR PO SCH (18:59)
[2022-03-13] MEDS: TOPIRAMATE (TopAMAX) 100 MG TAB PO SCH (20:37)
[2022-03-13] MEDS: ATORVASTATIN 10 MG TAB PO SCH (20:37)
[2022-03-13] MEDS ORDERED: diphenhydrAMINE 50MG CAP PO ONE (21:50)
[2022-03-14] MEDS: LEVOTHYROXINE 75MCG TABLET (0.075MG) PO SCH (06:43)
[2022-03-14] MEDS ORDERED: ARIPiprazole 10 MG TAB PO ONE (09:00)
[2022-03-14] MEDS: clonazePAM 1 MG TAB PO SCH ×2 (09:28→21:03)
[2022-03-14] MEDS: PREGABALIN 100 MG CAP (LYRICA) PO SCH ×3 (09:28→21:02)
[2022-03-14] MEDS: glipiZIDE XL 5 MG TABCR PO SCH ×2 (10:54→17:30)
[2022-03-14] MEDS ORDERED: LORazepam 1 MG TAB PO STA (15:09)
[2022-03-14] MEDS ORDERED: ALPRAZolam 0.5 MG TAB PO ONE (20:20)
[2022-03-14] MEDS: TOPIRAMATE (TopAMAX) 100 MG TAB PO SCH (21:02)
[2022-03-14] MEDS: ATORVASTATIN 10 MG TAB PO SCH (21:02)
[2022-03-15] MEDS: LEVOTHYROXINE 75MCG TABLET (0.075MG) PO SCH (06:36)
[2022-03-15] MEDS: glipiZIDE XL 5 MG TABCR PO SCH ×2 (06:37→17:30)
[2022-03-15] MEDS: clonazePAM 1 MG TAB PO SCH ×2 (10:00→20:04)
[2022-03-15] MEDS: PREGABALIN 100 MG CAP (LYRICA) PO SCH ×3 (10:01→20:04)
[2022-03-15] MEDS: TOPIRAMATE (TopAMAX) 100 MG TAB PO SCH (20:04)
[2022-03-15] MEDS: ATORVASTATIN 10 MG TAB PO SCH (20:04)
[2022-03-15] MEDS ORDERED: ALPRAZolam 0.5 MG TAB PO ONE (20:40)
[2022-03-16] MEDS: glipiZIDE XL 5 MG TABCR PO SCH ×2 (06:43→17:35)
[2022-03-16] MEDS: LEVOTHYROXINE 75MCG TABLET (0.075MG) PO SCH (06:43)
[2022-03-16] MEDS: clonazePAM 1 MG TAB PO SCH ×2 (09:00→21:00)
[2022-03-16] MEDS: PREGABALIN 100 MG CAP (LYRICA) PO SCH ×3 (09:19→21:00)
[2022-03-16] MEDS ORDERED: NEOSPORIN TOP OINT 15GM TOP STA (19:45)
[2022-03-16] MEDS: TOPIRAMATE (TopAMAX) 100 MG TAB PO SCH (21:00)
[2022-03-16] MEDS: ATORVASTATIN 10 MG TAB PO SCH (21:00)
[2022-03-16] MEDS ORDERED: ALPRAZolam 0.5 MG TAB PO ONE (22:25)
[2022-03-17] MEDS: PREGABALIN 100 MG CAP (LYRICA) PO SCH ×3 (08:16→20:24)
[2022-03-17] MEDS: glipiZIDE XL 5 MG TABCR PO SCH ×2 (08:16→16:52)
[2022-03-17] MEDS: LEVOTHYROXINE 75MCG TABLET (0.075MG) PO SCH (08:17)
[2022-03-17] MEDS: clonazePAM 1 MG TAB PO SCH ×2 (08:17→20:25)
[2022-03-17] MEDS ORDERED: NICOTINE 21MG/24HR 1 EA TRANSDERMAL TD SCH (09:00)
[2022-03-17 13:01] LABS: RSV AMPLIFICATION NEGATIVE (NEGATIVE)
[2022-03-17] MEDS ORDERED: OLANZapine ORAL DISINTEGRATING TAB 5MG PO PRN (13:20)
[2022-03-17] MEDS ORDERED: diphenhydrAMINE 25MG CAP PO PRN (13:20)
[2022-03-17 15:35] VITALS: BP 134/82
[2022-03-17] MEDS: ATORVASTATIN 10 MG TAB PO SCH (20:23)
[2022-03-17] MEDS: TOPIRAMATE (TopAMAX) 100 MG TAB PO SCH (20:24)
[2022-03-17] MEDS ORDERED: LORYNA PO SCH (21:00)
[2022-03-17] MEDS: traZODone 50 MG TAB PO PRN (23:06)
[2022-03-18] MEDS: LEVOTHYROXINE 75MCG TABLET (0.075MG) PO SCH (06:09)
[2022-03-18 06:35] VITALS: BP 120/73
[2022-03-18] MEDS: glipiZIDE XL 5 MG TABCR PO SCH ×2 (06:55→17:14)
[2022-03-18] MEDS: clonazePAM 1 MG TAB PO SCH ×2 (09:01→21:13)
[2022-03-18] MEDS: PREGABALIN 100 MG CAP (LYRICA) PO SCH ×3 (09:01→21:13)
[2022-03-18] MEDS: CARIPRAZINE 1.5MG CAPSULE (VRAYLAR) PO SCH (11:09)
[2022-03-18 16:36] VITALS: BP 118/65
[2022-03-18] MEDS: LORYNA PO SCH (21:12)
[2022-03-18] MEDS: TOPIRAMATE (TopAMAX) 100 MG TAB PO SCH (21:13)
[2022-03-18] MEDS: ATORVASTATIN 10 MG TAB PO SCH (21:13)
[2022-03-18] MEDS: traZODone 50 MG TAB PO PRN (22:18)
[2022-03-19] MEDS: LEVOTHYROXINE 75MCG TABLET (0.075MG) PO SCH (05:54)
[2022-03-19 06:27] VITALS: BP 125/72
[2022-03-19] MEDS: glipiZIDE XL 5 MG TABCR PO SCH ×2 (06:48→17:13)
[2022-03-19] MEDS: PREGABALIN 100 MG CAP (LYRICA) PO SCH ×3 (08:17→20:33)
[2022-03-19] MEDS: CARIPRAZINE 1.5MG CAPSULE (VRAYLAR) PO SCH (08:17)
[2022-03-19] MEDS: clonazePAM 1 MG TAB PO SCH ×2 (08:18→20:33)
[2022-03-19 16:00] VITALS: BP 112/61
[2022-03-19] MEDS: ATORVASTATIN 10 MG TAB PO SCH (20:33)
[2022-03-19] MEDS: TOPIRAMATE (TopAMAX) 100 MG TAB PO SCH (20:33)
[2022-03-19] MEDS: LORYNA PO SCH (20:34)
[2022-03-19] MEDS ORDERED: RAMELTEON 8 MG TAB (ROZEREM) PO SCH (21:00)
[2022-03-19] MEDS: IBUPROFEN 600MG TAB PO PRN (21:40)
[2022-03-20] MEDS: traZODone 50 MG TAB PO PRN (01:12)
[2022-03-20] MEDS: LEVOTHYROXINE 75MCG TABLET (0.075MG) PO SCH (05:37)
[2022-03-20 06:21] VITALS: BP 124/83
[2022-03-20] MEDS: glipiZIDE XL 5 MG TABCR PO SCH ×2 (06:31→17:10)
[2022-03-20] MEDS: CARIPRAZINE 1.5MG CAPSULE (VRAYLAR) PO SCH (08:05)
[2022-03-20] MEDS: IBUPROFEN 600MG TAB PO PRN (08:06)
[2022-03-20] MEDS: PREGABALIN 100 MG CAP (LYRICA) PO SCH ×3 (08:07→20:12)
[2022-03-20] MEDS: clonazePAM 1 MG TAB PO SCH ×2 (08:07→20:13)
[2022-03-20] MEDS ORDERED: RAMELTEON 8 MG TAB (ROZEREM) PO PRN (12:00)
[2022-03-20] MEDS: BENZTROPINE 0.5 MG TAB PO SCH ×2 (13:27→20:14)
[2022-03-20] MEDS: PROPRANOLOL 20 MG TAB PO PRN ×2 (13:29→20:14)
[2022-03-20 18:33] VITALS: BP 127/77
[2022-03-20] MEDS: LORYNA PO SCH (20:12)
[2022-03-20 20:14] VITALS: BP 123/72
[2022-03-20] MEDS: TOPIRAMATE (TopAMAX) 100 MG TAB PO SCH (20:15)
[2022-03-20] MEDS: ATORVASTATIN 10 MG TAB PO SCH (20:15)
[2022-03-21] MEDS: LEVOTHYROXINE 75MCG TABLET (0.075MG) PO SCH (05:53)
[2022-03-21 07:00] VITALS: BP 118/81
[2022-03-21] MEDS: PREGABALIN 100 MG CAP (LYRICA) PO SCH (08:31)
[2022-03-21] MEDS: CARIPRAZINE 1.5MG CAPSULE (VRAYLAR) PO SCH (08:31)
[2022-03-21] MEDS: BENZTROPINE 0.5 MG TAB PO SCH (08:31)
[2022-03-21] MEDS: clonazePAM 1 MG TAB PO SCH (08:31)
[2022-03-21] MEDS ORDERED: RAME8TAB2 PO (09:07)
[2022-03-21] MEDS ORDERED: BENZ0.5T23 PO (09:07)
[2022-03-21] MEDS ORDERED: VRAY1.5C PO (09:07)
[2022-03-21] MEDS ORDERED: PROP20TA PO (09:07)
[2022-03-21] MEDS ORDERED: TRAZ-252 PO (09:07)
[2022-03-21] MEDS: glipiZIDE XL 5 MG TABCR PO SCH (10:03)
== END 2022-03-21 12:58 | disposition home or self-care (01) | DRG 753 ==
LOC: M ED 01:54 → M ED INP 03-17 13:18 → M PSY 03-17 15:50
PROVIDERS: ADMIT Student in an Organized Health Care Education/Training Program; ATTEND Student in an Organized Health Care Education/Training Program
DX: F32.89 Other specified depressive episodes (principal); F43.10 Post-traumatic stress disorder, unspecified; F60.3 Borderline personality disorder; R45.851 Suicidal ideations; Z56.0 Unemployment, unspecified; Z79.899 Other long term (current) drug therapy; Z20.822 Contact with and (suspected) exposure to COVID-19; E11.42 Type 2 diabetes mellitus with diabetic polyneuropathy; E03.9 Hypothyroidism, unspecified; E78.5 Hyperlipidemia, unspecified; Z81.8 Family history of other mental and behavioral disorders; Z79.890 Hormone replacement therapy; G43.909 Migraine, unspecified, not intractable, without status migrainosus; M79.7 Fibromyalgia; E66.9 Obesity, unspecified; K75.81 Nonalcoholic steatohepatitis (NASH); Z87.891 Personal history of nicotine dependence

== ENCOUNTER 2022-06-03 17:20 | Inpatient (IN) | payer MEDICAID, OTHER ==
[~2022-06-03] VITALS: Ht 152.4 cm; Wt 82.4 kg
[~2022-06-03 17:20] MED LIST changes: +ATOR1TAB19 PO; +ATOR80TA59 PO; +BENZ0.5T23 PO; +CLON1TAB8 PO; +D 1010004 PO; +GLIP10TA18 PO; +KLON1TAB PO; +LORY1TAB2 PO; +PREG100CA PO; +PROP20TA PO; +RAME8TAB2 PO; +SYNT75TA PO; +TOPI100T9 PO; +TOPI50TA9 PO; +TRAZ-252 PO; +VITATAB73 PO; +VRAY1.5C PO; +YAZ1TAB PO
[2022-06-03 20:15] LABS: HEMOGLOBIN 12.4 g/dl (12.0-15.5); MEAN CORPUSCULAR HEMOGLOBIN 29.5 pg (27.0-33.0); MEAN CORPUSCULAR HGB CONC 31.8 g/dl (32.0-36.5); MEAN CORPUSCULAR VOLUME 92.6 fl (80.0-96.0); PLATELET COUNT, AUTOMATED 400 10^3/uL (150-450); RED BLOOD COUNT 4.21 10^6/uL (4.00-5.40); WHITE BLOOD COUNT 11.9 10^3/uL (4.0-10.0)
[2022-06-03] MEDS ORDERED: HYDR50CA2 PO (20:20)
[2022-06-03] MEDS ORDERED: ACET-897 PO (20:20)
[2022-06-03] MEDS ORDERED: DULO1CAP5 PO (20:20)
[2022-06-03] MEDS ORDERED: MAGN400C PO (20:20)
[2022-06-03] MEDS ORDERED: HOME MED LIST COMPLETE! XX SCH (20:25)
[2022-06-03 20:37] LABS: AMPHETAMINES LEVEL URINE NEGATIVE (NEGATIVE); BARBITURATES URINE NEGATIVE (NEGATIVE); BENZODIAZEPINES URINE NEGATIVE (NEGATIVE); CANNABINOIDS URINE NEGATIVE (NEGATIVE); COCAINE METABOLITE URINE NEGATIVE (NEGATIVE); METHADONE URINE NEGATIVE (NEGATIVE); OPIATES URINE NEGATIVE (NEGATIVE); PHENCYCLIDINE URINE NEGATIVE (NEGATIVE)
[2022-06-03 20:44] LABS: CHLORIDE LEVEL 104 MMOL/L (98-107); HCG, SERUM QUALITATIVE NEGATIVE (NEGATIVE); POTASSIUM SERUM 4.1 MMOL/L (3.5-5.1); SODIUM LEVEL 140 MMOL/L (136-145)
[2022-06-03 20:45] LABS: CARBON DIOXIDE LEVEL 24 MMOL/L (20-31)
[2022-06-03 20:46] LABS: ALBUMIN 3.8 G/DL (3.2-5.2)
[2022-06-03 20:50] LABS: BLOOD UREA NITROGEN 12 MG/DL (9-23); CALCIUM LEVEL 9.5 MG/DL (8.5-10.1); GLUCOSE, FASTING 121 MG/DL (60-100)
[2022-06-03 20:51] LABS: ALKALINE PHOSPHATASE 88 U/L (46-116); ETHYL ALCOHOL (ETHANOL) 0.003 % (0.000-0.010)
[2022-06-03 20:52] LABS: BILIRUBIN,DIRECT 0.1 MG/DL (<0.4); GLOMERULAR FILTRATION RATE > 60.0 (>60); SALICYLATE LEVEL < 3.0 MG/DL (<30)
[2022-06-03 20:53] LABS: ACETAMINOPHEN LEVEL < 2.0 UG/ML (10.0-20.0); ALT/SGPT 77 U/L (7.0-40); AST/SGOT 57 U/L (<34); BILIRUBIN,TOTAL 0.3 MG/DL (0.3-1.2); TOTAL PROTEIN 7.3 G/DL (5.7-8.2)
[2022-06-03 20:54] LABS: THYROID STIMULATING HORMONE 2.103 uIU/ML (0.55-4.78)
[2022-06-03 20:58] LABS: RSV AMPLIFICATION NEGATIVE (NEGATIVE)
[2022-06-04] MEDS ORDERED: PREGABALIN 100 MG CAP (LYRICA) PO ONE (01:20)
[2022-06-04] MEDS ORDERED: ONDANSETRON 4MG ORAL DISINTEGRATING TAB PO ONE (01:40)
[2022-06-04] MEDS ORDERED: MOM 30ML SUSPENSION UDC PO PRN (02:00)
[2022-06-04] MEDS ORDERED: MAALOX 30 ML SUSP *UDC PO PRN (02:00)
[2022-06-04] MEDS ORDERED: hydrOXYzine 50 MG TAB PO STA (02:10)
[2022-06-04] MEDS ORDERED: ACETAMINOPHEN 500 MG TAB PO ONE (02:10)
[2022-06-04] MEDS ORDERED: TOPIRAMATE (TopAMAX) 25 MG TAB PO ONE (02:10)
[2022-06-04 02:53] VITALS: BP 117/70
[2022-06-04] MEDS: LEVOTHYROXINE 75MCG TABLET (0.075MG) PO SCH (05:49)
[2022-06-04] MEDS: glipiZIDE XL 5 MG TABCR PO SCH ×2 (09:32→20:48)
[2022-06-04] MEDS: PREGABALIN 100 MG CAP (LYRICA) PO SCH ×3 (09:32→20:49)
[2022-06-04] MEDS: MAGNESIUM OXIDE 400MG TAB (MAG-OX) PO SCH (09:33)
[2022-06-04] MEDS: DULoxetine 30MG CAPSULE (CYMBALTA) PO SCH (10:53)
[2022-06-04] MEDS: clonazePAM 1 MG TAB PO PRN ×2 (10:56→20:50)
[2022-06-04] MEDS ORDERED: PREGABALIN 50 MG CAP (LYRICA) PO PRN (11:40)
[2022-06-04] MEDS ORDERED: ONDANSETRON 4MG ORAL DISINTEGRATING TAB PO PRN (15:55)
[2022-06-04] MEDS: hydrOXYzine 50 MG TAB PO PRN (16:40)
[2022-06-04] MEDS: ATORVASTATIN 10 MG TAB PO SCH (20:48)
[2022-06-04] MEDS: TOPIRAMATE (TopAMAX) 100 MG TAB PO SCH (20:48)
[2022-06-04] MEDS: RAMELTEON 8 MG TAB (ROZEREM) PO SCH (23:06)
[2022-06-05] MEDS: LEVOTHYROXINE 75MCG TABLET (0.075MG) PO SCH (05:30)
[2022-06-05] MEDS: hydrOXYzine 50 MG TAB PO PRN (07:26)
[2022-06-05] MEDS: glipiZIDE XL 5 MG TABCR PO SCH ×2 (08:18→21:08)
[2022-06-05] MEDS: MAGNESIUM OXIDE 400MG TAB (MAG-OX) PO SCH (08:18)
[2022-06-05] MEDS: PREGABALIN 100 MG CAP (LYRICA) PO SCH ×3 (08:18→21:08)
[2022-06-05] MEDS: DULoxetine 30MG CAPSULE (CYMBALTA) PO SCH (09:36)
[2022-06-05] MEDS: clonazePAM 1 MG TAB PO SCH ×2 (09:37→21:08)
[2022-06-05] MEDS: busPIRone 5 MG TAB PO SCH ×3 (10:06→21:08)
[2022-06-05 18:12] VITALS: BP 127/67
[2022-06-05] MEDS: RAMELTEON 8 MG TAB (ROZEREM) PO SCH (21:00)
[2022-06-05] MEDS: ATORVASTATIN 10 MG TAB PO SCH (21:08)
[2022-06-05] MEDS: TOPIRAMATE (TopAMAX) 100 MG TAB PO SCH (21:09)
[2022-06-06] MEDS: LEVOTHYROXINE 75MCG TABLET (0.075MG) PO SCH (06:09)
[2022-06-06 06:25] VITALS: BP 113/71
[2022-06-06] MEDS ORDERED: LORYNA PO SCH (09:00)
[2022-06-06] MEDS: clonazePAM 1 MG TAB PO SCH ×2 (09:05→21:10)
[2022-06-06] MEDS: PREGABALIN 100 MG CAP (LYRICA) PO SCH ×3 (09:05→21:09)
[2022-06-06] MEDS: busPIRone 5 MG TAB PO SCH ×3 (09:06→21:09)
[2022-06-06] MEDS: DULoxetine 30MG CAPSULE (CYMBALTA) PO SCH (09:06)
[2022-06-06] MEDS: MAGNESIUM OXIDE 400MG TAB (MAG-OX) PO SCH (09:06)
[2022-06-06] MEDS: glipiZIDE XL 5 MG TABCR PO SCH ×2 (09:06→21:09)
[2022-06-06] MEDS: hydrOXYzine 50 MG TAB PO PRN (13:07)
[2022-06-06 18:07] VITALS: BP 121/69
[2022-06-06] MEDS: RAMELTEON 8 MG TAB (ROZEREM) PO SCH (21:00)
[2022-06-06] MEDS: TOPIRAMATE (TopAMAX) 100 MG TAB PO SCH (21:09)
[2022-06-06] MEDS: ATORVASTATIN 10 MG TAB PO SCH (21:09)
[2022-06-06] MEDS: LORYNA PO SCH (21:10)
[2022-06-07] MEDS: LEVOTHYROXINE 75MCG TABLET (0.075MG) PO SCH (05:48)
[2022-06-07] MEDS: glipiZIDE XL 5 MG TABCR PO SCH ×2 (09:13→21:44)
[2022-06-07] MEDS: clonazePAM 1 MG TAB PO SCH ×2 (09:13→21:44)
[2022-06-07] MEDS: busPIRone 5 MG TAB PO SCH ×3 (09:13→21:44)
[2022-06-07] MEDS: DULoxetine 30MG CAPSULE (CYMBALTA) PO SCH (09:13)
[2022-06-07] MEDS: MAGNESIUM OXIDE 400MG TAB (MAG-OX) PO SCH (09:13)
[2022-06-07] MEDS: PREGABALIN 100 MG CAP (LYRICA) PO SCH ×3 (09:13→21:44)
[2022-06-07 18:12] VITALS: BP 124/63
[2022-06-07] MEDS: RAMELTEON 8 MG TAB (ROZEREM) PO SCH ×2 (21:00→23:36)
[2022-06-07] MEDS: TOPIRAMATE (TopAMAX) 100 MG TAB PO SCH (21:44)
[2022-06-07] MEDS: ATORVASTATIN 10 MG TAB PO SCH (21:44)
[2022-06-07] MEDS: LORYNA PO SCH (21:45)
[2022-06-07] MEDS: hydrOXYzine 50 MG TAB PO PRN (23:36)
[2022-06-08] MEDS: LEVOTHYROXINE 75MCG TABLET (0.075MG) PO SCH (05:56)
[2022-06-08 06:16] VITALS: BP 136/84
[2022-06-08] MEDS: DULoxetine 30MG CAPSULE (CYMBALTA) PO SCH (08:04)
[2022-06-08] MEDS: PREGABALIN 100 MG CAP (LYRICA) PO SCH ×3 (08:04→20:22)
[2022-06-08] MEDS: glipiZIDE XL 5 MG TABCR PO SCH ×2 (08:04→20:21)
[2022-06-08] MEDS: MAGNESIUM OXIDE 400MG TAB (MAG-OX) PO SCH (08:04)
[2022-06-08] MEDS: busPIRone 5 MG TAB PO SCH ×3 (08:04→20:21)
[2022-06-08] MEDS: clonazePAM 1 MG TAB PO SCH ×2 (08:05→20:21)
[2022-06-08 18:00] VITALS: BP 124/79
[2022-06-08] MEDS: hydrOXYzine 50 MG TAB PO PRN (18:49)
[2022-06-08] MEDS: ATORVASTATIN 10 MG TAB PO SCH (20:21)
[2022-06-08] MEDS: LORYNA PO SCH (20:21)
[2022-06-08] MEDS: TOPIRAMATE (TopAMAX) 100 MG TAB PO SCH (20:22)
[2022-06-08] MEDS: RAMELTEON 8 MG TAB (ROZEREM) PO SCH (21:00)
[2022-06-09] MEDS: LEVOTHYROXINE 75MCG TABLET (0.075MG) PO SCH (06:08)
[2022-06-09 06:32] VITALS: BP 135/65
[2022-06-09] MEDS: clonazePAM 1 MG TAB PO SCH ×2 (08:25→21:59)
[2022-06-09] MEDS: DULoxetine 30MG CAPSULE (CYMBALTA) PO SCH (08:25)
[2022-06-09] MEDS: PREGABALIN 100 MG CAP (LYRICA) PO SCH ×3 (08:25→21:59)
[2022-06-09] MEDS: busPIRone 5 MG TAB PO SCH ×3 (08:25→21:58)
[2022-06-09] MEDS: glipiZIDE XL 5 MG TABCR PO SCH ×2 (08:25→22:01)
[2022-06-09] MEDS: MAGNESIUM OXIDE 400MG TAB (MAG-OX) PO SCH (08:25)
[2022-06-09 16:03] VITALS: BP 122/71
[2022-06-09] MEDS: RAMELTEON 8 MG TAB (ROZEREM) PO SCH (21:00)
[2022-06-09] MEDS: TOPIRAMATE (TopAMAX) 100 MG TAB PO SCH (21:58)
[2022-06-09] MEDS: ATORVASTATIN 10 MG TAB PO SCH (21:59)
[2022-06-09] MEDS: LORYNA PO SCH (22:00)
[2022-06-10] MEDS: LEVOTHYROXINE 75MCG TABLET (0.075MG) PO SCH (05:37)
[2022-06-10] MEDS: ACETAMINOPHEN TAB 650MG DOSE (2X325MG) PO PRN (06:20)
[2022-06-10 06:31] VITALS: BP 116/74
[2022-06-10 07:04] LABS: BLOOD UREA NITROGEN 12 MG/DL (9-23); CARBON DIOXIDE LEVEL 22 MMOL/L (20-31); CHLORIDE LEVEL 107 MMOL/L (98-107); CREATININE FOR GFR 0.62 MG/DL (0.55-1.30); GLOMERULAR FILTRATION RATE > 60.0 (>60); GLUCOSE, FASTING 102 MG/DL (60-100); POTASSIUM SERUM 3.6 MMOL/L (3.5-5.1); SODIUM LEVEL 141 MMOL/L (136-145)
[2022-06-10] MEDS: PREGABALIN 100 MG CAP (LYRICA) PO SCH ×3 (08:59→21:01)
[2022-06-10] MEDS: glipiZIDE XL 5 MG TABCR PO SCH ×2 (08:59→21:01)
[2022-06-10] MEDS: DULoxetine 30MG CAPSULE (CYMBALTA) PO SCH (08:59)
[2022-06-10] MEDS: busPIRone 5 MG TAB PO SCH ×3 (09:00→21:01)
[2022-06-10] MEDS: clonazePAM 1 MG TAB PO SCH ×2 (09:00→21:01)
[2022-06-10] MEDS: MAGNESIUM OXIDE 400MG TAB (MAG-OX) PO SCH (09:00)
[2022-06-10] MEDS: BREXPIPRAZOLE 0.5MG TABLET (REXULTI) PO SCH (09:00)
[2022-06-10 16:20] VITALS: BP 118/70
[2022-06-10] MEDS: RAMELTEON 8 MG TAB (ROZEREM) PO SCH (21:00)
[2022-06-10] MEDS: ATORVASTATIN 10 MG TAB PO SCH (21:01)
[2022-06-10] MEDS: TOPIRAMATE (TopAMAX) 100 MG TAB PO SCH (21:01)
[2022-06-10] MEDS: LORYNA PO SCH (21:02)
[2022-06-11] MEDS: LEVOTHYROXINE 75MCG TABLET (0.075MG) PO SCH (05:55)
[2022-06-11 06:29] VITALS: BP 133/86
[2022-06-11] MEDS: DULoxetine 30MG CAPSULE (CYMBALTA) PO SCH (07:47)
[2022-06-11] MEDS: glipiZIDE XL 5 MG TABCR PO SCH ×2 (07:47→20:58)
[2022-06-11] MEDS: clonazePAM 1 MG TAB PO SCH ×2 (07:48→20:57)
[2022-06-11] MEDS: MAGNESIUM OXIDE 400MG TAB (MAG-OX) PO SCH (07:48)
[2022-06-11] MEDS: busPIRone 5 MG TAB PO SCH ×3 (07:48→20:58)
[2022-06-11] MEDS: BREXPIPRAZOLE 0.5MG TABLET (REXULTI) PO SCH (07:48)
[2022-06-11] MEDS: PREGABALIN 100 MG CAP (LYRICA) PO SCH ×3 (07:48→20:57)
[2022-06-11 16:11] VITALS: BP 119/69
[2022-06-11] MEDS: ATORVASTATIN 10 MG TAB PO SCH (20:58)
[2022-06-11] MEDS: TOPIRAMATE (TopAMAX) 100 MG TAB PO SCH (20:58)
[2022-06-11] MEDS: LORYNA PO SCH (20:58)
[2022-06-11] MEDS: RAMELTEON 8 MG TAB (ROZEREM) PO SCH (21:00)
[2022-06-12] MEDS: LEVOTHYROXINE 75MCG TABLET (0.075MG) PO SCH (05:51)
[2022-06-12 06:18] VITALS: BP 123/76
[2022-06-12] MEDS: DULoxetine 30MG CAPSULE (CYMBALTA) PO SCH (08:16)
[2022-06-12] MEDS: glipiZIDE XL 5 MG TABCR PO SCH ×2 (08:16→21:20)
[2022-06-12] MEDS: busPIRone 5 MG TAB PO SCH ×3 (08:16→21:20)
[2022-06-12] MEDS: clonazePAM 1 MG TAB PO SCH ×2 (08:17→21:20)
[2022-06-12] MEDS: MAGNESIUM OXIDE 400MG TAB (MAG-OX) PO SCH (08:17)
[2022-06-12] MEDS: BREXPIPRAZOLE 0.5MG TABLET (REXULTI) PO SCH (08:17)
[2022-06-12] MEDS: PREGABALIN 100 MG CAP (LYRICA) PO SCH ×3 (08:17→21:20)
[2022-06-12] MEDS ORDERED: BREXPIPRAZOLE 0.5MG TABLET (REXULTI) PO ONE (10:20)
[2022-06-12] MEDS: NICOTINE POLACRILEX 2 MG GUM PO PRN ×2 (13:00→18:18)
[2022-06-12] MEDS: ACETAMINOPHEN TAB 650MG DOSE (2X325MG) PO PRN (13:02)
[2022-06-12 19:06] VITALS: BP 115/70
[2022-06-12] MEDS: RAMELTEON 8 MG TAB (ROZEREM) PO SCH ×2 (21:00→23:36)
[2022-06-12] MEDS: TOPIRAMATE (TopAMAX) 100 MG TAB PO SCH (21:20)
[2022-06-12] MEDS: LORYNA PO SCH (21:20)
[2022-06-12] MEDS: ATORVASTATIN 10 MG TAB PO SCH (21:20)
[2022-06-13] MEDS: LEVOTHYROXINE 75MCG TABLET (0.075MG) PO SCH (07:52)
[2022-06-13] MEDS: glipiZIDE XL 5 MG TABCR PO SCH (07:53)
[2022-06-13] MEDS: PREGABALIN 100 MG CAP (LYRICA) PO SCH (07:53)
[2022-06-13] MEDS: DULoxetine 30MG CAPSULE (CYMBALTA) PO SCH (07:54)
[2022-06-13] MEDS: NICOTINE POLACRILEX 2 MG GUM PO PRN (07:54)
[2022-06-13] MEDS: MAGNESIUM OXIDE 400MG TAB (MAG-OX) PO SCH (07:55)
[2022-06-13] MEDS: clonazePAM 1 MG TAB PO SCH (07:55)
[2022-06-13] MEDS: busPIRone 5 MG TAB PO SCH (07:55)
[2022-06-13] MEDS ORDERED: BREXPIPRAZOLE 0.5MG TABLET (REXULTI) PO SCH (09:00)
[2022-06-13] MEDS ORDERED: CYMB1CAP5 PO (10:51)
[2022-06-13] MEDS ORDERED: BUSP5TA PO (10:51)
[2022-06-13] MEDS ORDERED: REXU1TAB2 PO (10:51)
[2022-06-13] MEDS ORDERED: REXU1TAB3 PO (10:52)
== END 2022-06-13 11:40 | disposition home or self-care (01) | DRG 755 ==
LOC: M ED 17:20 → M ED INP 06-04 01:58 → M PSY 06-04 02:48
PROVIDERS: ADMIT Psychiatry & Neurology Psychiatry; ATTEND Psychiatry & Neurology Psychiatry
DX: F43.10 Post-traumatic stress disorder, unspecified (principal); F32.0 Major depressive disorder, single episode, mild; F41.1 Generalized anxiety disorder; F60.3 Borderline personality disorder; R45.851 Suicidal ideations; E11.42 Type 2 diabetes mellitus with diabetic polyneuropathy; E78.00 Pure hypercholesterolemia, unspecified; E03.9 Hypothyroidism, unspecified; K76.0 Fatty (change of) liver, not elsewhere classified; F17.210 Nicotine dependence, cigarettes, uncomplicated; Z62.810 Personal history of physical and sexual abuse in childhood; Z79.890 Hormone replacement therapy; Z79.84 Long term (current) use of oral hypoglycemic drugs; Z79.899 Other long term (current) drug therapy; Z20.822 Contact with and (suspected) exposure to COVID-19; G43.909 Migraine, unspecified, not intractable, without status migrainosus; F44.6 Conversion disorder with sensory symptom or deficit

== ENCOUNTER 2022-07-04 16:04 | Inpatient (IN) | payer MEDICAID, OTHER ==
[~2022-07-04] VITALS: Ht 149.9 cm; Wt 37.6 kg
[~2022-07-04 16:04] MED LIST changes: +ACET-897 PO; +BUSP5TA PO; +CYMB1CAP5 PO; +DULO1CAP5 PO; +HYDR50CA2 PO; +MAGN400C PO; +REXU1TAB2 PO; +REXU1TAB3 PO
[2022-07-04] MEDS ORDERED: BOOSTRIX/ADACEL VACCINE (DIPHTH/PERTUSS/ACELL/TETANUS) 0.5ML SYR IM.IMMUN ONE (17:50)
[2022-07-04 18:05] LABS: HEMATOCRIT 39.4 % (36.0-47.0); HEMOGLOBIN 12.6 g/dl (12.0-15.5); MEAN CORPUSCULAR HEMOGLOBIN 29.9 pg (27.0-33.0); MEAN CORPUSCULAR VOLUME 93.4 fl (80.0-96.0); PLATELET COUNT, AUTOMATED 444 10^3/uL (150-450); RED BLOOD COUNT 4.22 10^6/uL (4.00-5.40); WHITE BLOOD COUNT 13.4 10^3/uL (4.0-10.0)
[2022-07-04 18:25] LABS: ETHYL ALCOHOL (ETHANOL) 0.003 % (0.000-0.010)
[2022-07-04 18:26] LABS: BILIRUBIN,DIRECT < 0.1 MG/DL (<0.4)
[2022-07-04 18:27] LABS: ACETAMINOPHEN LEVEL < 2.0 UG/ML (10.0-20.0); ALBUMIN 3.6 G/DL (3.2-5.2); ALKALINE PHOSPHATASE 87 U/L (46-116); ALT/SGPT 87 U/L (7.0-40); AST/SGOT 60 U/L (<34); BILIRUBIN,TOTAL 0.2 MG/DL (0.3-1.2); BLOOD UREA NITROGEN 7 MG/DL (9-23); CALCIUM LEVEL 9.7 MG/DL (8.5-10.1); CARBON DIOXIDE LEVEL 22 MMOL/L (20-31); CHLORIDE LEVEL 105 MMOL/L (98-107); CREATININE FOR GFR 0.51 MG/DL (0.55-1.30); GLOMERULAR FILTRATION RATE > 60.0 (>60); GLUCOSE, FASTING 149 MG/DL (60-100); SALICYLATE LEVEL < 3.0 MG/DL (<30); SODIUM LEVEL 140 MMOL/L (136-145); TOTAL PROTEIN 6.9 G/DL (5.7-8.2)
[2022-07-04 18:29] LABS: THYROID STIMULATING HORMONE 0.809 uIU/ML (0.55-4.78)
[2022-07-04 18:41] LABS: AMPHETAMINES LEVEL URINE NEGATIVE (NEGATIVE); BARBITURATES URINE NEGATIVE (NEGATIVE); BENZODIAZEPINES URINE NEGATIVE (NEGATIVE); CANNABINOIDS URINE NEGATIVE (NEGATIVE); COCAINE METABOLITE URINE NEGATIVE (NEGATIVE); METHADONE URINE NEGATIVE (NEGATIVE); OPIATES URINE NEGATIVE (NEGATIVE); PHENCYCLIDINE URINE NEGATIVE (NEGATIVE)
[2022-07-04 18:47] LABS: HCG, SERUM QUALITATIVE NEGATIVE (NEGATIVE)
[2022-07-04] MEDS: busPIRone 5 MG TAB PO SCH (21:00)
[2022-07-04] MEDS: ATORVASTATIN 10 MG TAB PO SCH (21:00)
[2022-07-04] MEDS ORDERED: BUSP5TA PO (21:11)
[2022-07-04] MEDS ORDERED: DULO1CAP6 PO (21:11)
[2022-07-04] MEDS ORDERED: REXU1TAB4 PO (21:11)
[2022-07-04] MEDS ORDERED: HOME MED LIST COMPLETE! XX SCH (21:15)
[2022-07-05] MEDS ORDERED: traZODone 50 MG TAB PO PRN (00:30)
[2022-07-05] MEDS ORDERED: MAALOX 30 ML SUSP *UDC PO PRN (00:30)
[2022-07-05] MEDS ORDERED: ACETAMINOPHEN TAB 650MG DOSE (2X325MG) PO PRN (00:30)
[2022-07-05] MEDS ORDERED: MOM 30ML SUSPENSION UDC PO PRN (00:30)
[2022-07-05] MEDS ORDERED: PILL CUTTER 1 EACH XX PRN (01:15)
[2022-07-05 01:36] VITALS: BP 100/62
[2022-07-05] MEDS: hydrOXYzine 50 MG TAB PO PRN ×3 (02:05→20:23)
[2022-07-05] MEDS ORDERED: PREGABALIN 100 MG CAP (LYRICA) PO ONE (03:00)
[2022-07-05] MEDS: LEVOTHYROXINE 75MCG TABLET (0.075MG) PO SCH (05:28)
[2022-07-05] MEDS: BREXPIPRAZOLE 2MG TABLET (REXULTI) PO SCH (08:26)
[2022-07-05] MEDS: NICOTINE POLACRILEX 2 MG GUM PO PRN ×3 (08:26→20:21)
[2022-07-05] MEDS: busPIRone 5 MG TAB PO SCH ×3 (08:26→20:23)
[2022-07-05] MEDS: PREGABALIN 100 MG CAP (LYRICA) PO SCH ×3 (08:26→20:22)
[2022-07-05] MEDS: DULoxetine 30MG CAPSULE (CYMBALTA) PO SCH (08:26)
[2022-07-05] MEDS: clonazePAM 1 MG TAB PO SCH ×2 (08:26→20:22)
[2022-07-05] MEDS ORDERED: BREXPIPRAZOLE 2MG TABLET (REXULTI) PO SCH (09:00)
[2022-07-05] MEDS ORDERED: DULoxetine 30MG CAPSULE (CYMBALTA) PO SCH (09:00)
[2022-07-05] MEDS ORDERED: GLUCAGON INJ 1MG VIAL SC PRN (10:30)
[2022-07-05] MEDS ORDERED: GLUCOSE 4GM CHEW TABLET PO PRN (10:30)
[2022-07-05] MEDS ORDERED: DEXTROSE 50% 50ML SYRINGE IV PRN (10:30)
[2022-07-05] MEDS: MAGNESIUM OXIDE 400MG TAB (MAG-OX) PO SCH (11:06)
[2022-07-05] MEDS: glipiZIDE XL 5 MG TABCR PO SCH ×2 (11:07→17:24)
[2022-07-05 17:35] VITALS: BP 138/75
[2022-07-05] MEDS: ATORVASTATIN 10 MG TAB PO SCH (20:24)
[2022-07-05] MEDS ORDERED: busPIRone 5 MG TAB PO SCH (21:00)
[2022-07-05] MEDS ORDERED: ATORVASTATIN 10 MG TAB PO SCH (21:00)
[2022-07-06] MEDS: NICOTINE POLACRILEX 2 MG GUM PO PRN ×3 (03:40→20:01)
[2022-07-06] MEDS: LEVOTHYROXINE 75MCG TABLET (0.075MG) PO SCH (05:54)
[2022-07-06 06:51] VITALS: BP 109/58
[2022-07-06 07:10] LABS: CHOLESTEROL RISK RATIO 3.98 (<5); HDL CHOLESTEROL 53.4 MG/DL (>40)
[2022-07-06] MEDS: busPIRone 5 MG TAB PO SCH ×3 (08:34→20:02)
[2022-07-06] MEDS: MAGNESIUM OXIDE 400MG TAB (MAG-OX) PO SCH (08:34)
[2022-07-06] MEDS: DULoxetine 30MG CAPSULE (CYMBALTA) PO SCH (08:34)
[2022-07-06] MEDS: clonazePAM 1 MG TAB PO SCH ×2 (08:34→20:02)
[2022-07-06] MEDS: PREGABALIN 100 MG CAP (LYRICA) PO SCH ×3 (08:34→15:07)
[2022-07-06] MEDS: BREXPIPRAZOLE 2MG TABLET (REXULTI) PO SCH ×2 (08:36→09:01)
[2022-07-06] MEDS: glipiZIDE XL 5 MG TABCR PO SCH ×2 (08:37→17:55)
[2022-07-06] MEDS: hydrOXYzine 50 MG TAB PO PRN ×2 (12:33→20:01)
[2022-07-06 18:00] VITALS: BP 135/76
[2022-07-06] MEDS: ATORVASTATIN 10 MG TAB PO SCH (20:02)
[2022-07-06] MEDS ORDERED: QUEtiapine FUMARATE 50MG TAB PO PRN (20:05)
[2022-07-06] MEDS ORDERED: RAMELTEON 8 MG TAB (ROZEREM) PO SCH (21:00)
[2022-07-07] MEDS: hydrOXYzine 50 MG TAB PO PRN (03:07)
[2022-07-07] MEDS: NICOTINE POLACRILEX 2 MG GUM PO PRN ×2 (04:00→08:30)
[2022-07-07] MEDS: LEVOTHYROXINE 75MCG TABLET (0.075MG) PO SCH (05:39)
[2022-07-07 06:08] VITALS: BP 116/69
[2022-07-07] MEDS: glipiZIDE XL 5 MG TABCR PO SCH (06:37)
[2022-07-07] MEDS: clonazePAM 1 MG TAB PO SCH (08:25)
[2022-07-07] MEDS: busPIRone 5 MG TAB PO SCH (08:25)
[2022-07-07] MEDS: DULoxetine 30MG CAPSULE (CYMBALTA) PO SCH (08:26)
[2022-07-07] MEDS: BREXPIPRAZOLE 2MG TABLET (REXULTI) PO SCH (08:26)
[2022-07-07] MEDS: MAGNESIUM OXIDE 400MG TAB (MAG-OX) PO SCH (08:27)
[2022-07-07] MEDS: PREGABALIN 100 MG CAP (LYRICA) PO SCH (08:28)
[2022-07-07] MEDS ORDERED: QUET50TA4 PO (09:21)
[2022-07-07] MEDS ORDERED: CYMB60CA4 PO (09:21)
[2022-07-07] MEDS ORDERED: NICO2GUM PO (09:21)
[2022-07-07] MEDS ORDERED: REXU1TAB5 PO (09:21)
[2022-07-07] MEDS ORDERED: TRAZ-252 PO (09:21)
[2022-07-07] MEDS ORDERED: CYMB1CAP5 PO (09:21)
== END 2022-07-07 11:40 | disposition home or self-care (01) | DRG 751 ==
LOC: M ED 17:15 → M ED INP 07-05 00:30 → M PSY 07-05 01:30
PROVIDERS: ADMIT Student in an Organized Health Care Education/Training Program; ATTEND Student in an Organized Health Care Education/Training Program
DX: F32.1 Major depressive disorder, single episode, moderate (principal); E11.40 Type 2 diabetes mellitus with diabetic neuropathy, unspecified; R45.851 Suicidal ideations; K76.0 Fatty (change of) liver, not elsewhere classified; F43.10 Post-traumatic stress disorder, unspecified; F41.1 Generalized anxiety disorder; F60.3 Borderline personality disorder; Z79.899 Other long term (current) drug therapy; E78.5 Hyperlipidemia, unspecified; G43.909 Migraine, unspecified, not intractable, without status migrainosus; F17.200 Nicotine dependence, unspecified, uncomplicated

== ENCOUNTER 2022-07-10 05:52 | Emergency (ER) | payer OTHER ==
[~2022-07-10] VITALS: Ht 149.9 cm; Wt 83.2 kg
[2022-07-10 05:52] VITALS: BP 129/86
[~2022-07-10 05:52] MED LIST changes: +CYMB60CA4 PO; +DULO1CAP6 PO; +NICO2GUM PO; +QUET50TA4 PO; +REXU1TAB4 PO; +REXU1TAB5 PO
== END 2022-07-10 07:45 | disposition left against medical advice (07) ==
LOC: M ED 05:52
DX: Z53.21 Procedure and treatment not carried out due to patient leaving prior to being seen by health care provider (principal)

== ENCOUNTER 2022-07-16 12:10 | Emergency (ER) | payer OTHER ==
[~2022-07-16] VITALS: Ht 152.4 cm; Wt 83.2 kg
[2022-07-16 13:13] LABS: HEMATOCRIT 36.4 % (36.0-47.0); HEMOGLOBIN 11.6 g/dl (12.0-15.5); MEAN CORPUSCULAR HEMOGLOBIN 29.7 pg (27.0-33.0); MEAN CORPUSCULAR HGB CONC 31.9 g/dl (32.0-36.5); MEAN CORPUSCULAR VOLUME 93.3 fl (80.0-96.0); PLATELET COUNT, AUTOMATED 419 10^3/uL (150-450); WHITE BLOOD COUNT 13.3 10^3/uL (4.0-10.0)
[2022-07-16 13:35] LABS: ETHYL ALCOHOL (ETHANOL) 0.003 % (0.000-0.010)
[2022-07-16 13:37] LABS: ACETAMINOPHEN LEVEL < 2.0 UG/ML (10.0-20.0); ALBUMIN 3.6 G/DL (3.2-5.2); ALKALINE PHOSPHATASE 94 U/L (46-116); ALT/SGPT 78 U/L (7.0-40); AST/SGOT 57 U/L (<34); BILIRUBIN,DIRECT < 0.1 MG/DL (<0.4); BILIRUBIN,TOTAL 0.2 MG/DL (0.3-1.2); BLOOD UREA NITROGEN 10 MG/DL (9-23); CALCIUM LEVEL 9.1 MG/DL (8.5-10.1); CARBON DIOXIDE LEVEL 26 MMOL/L (20-31); CHLORIDE LEVEL 106 MMOL/L (98-107); CREATININE FOR GFR 0.68 MG/DL (0.55-1.30); GLOMERULAR FILTRATION RATE > 60.0 (>60); GLUCOSE, FASTING 105 MG/DL (60-100); POTASSIUM SERUM 3.8 MMOL/L (3.5-5.1); SALICYLATE LEVEL < 3.0 MG/DL (<30); SODIUM LEVEL 140 MMOL/L (136-145); TOTAL PROTEIN 6.8 G/DL (5.7-8.2)
[2022-07-16 13:39] LABS: THYROID STIMULATING HORMONE 1.026 uIU/ML (0.55-4.78)
[2022-07-16 13:45] LABS: AMPHETAMINES LEVEL URINE NEGATIVE (NEGATIVE); BARBITURATES URINE NEGATIVE (NEGATIVE); COCAINE METABOLITE URINE NEGATIVE (NEGATIVE); OPIATES URINE NEGATIVE (NEGATIVE); PHENCYCLIDINE URINE NEGATIVE (NEGATIVE)
[2022-07-16 13:50] LABS: HCG, SERUM QUALITATIVE NEGATIVE (NEGATIVE)
[2022-07-16 13:50] LABS: BENZODIAZEPINES URINE POSITIVE (NEGATIVE); CANNABINOIDS URINE POSITIVE (NEGATIVE); METHADONE URINE NEGATIVE (NEGATIVE)
[2022-07-16] MEDS ORDERED: OLANZapine ORAL DISINTEGRATING TAB 5MG PO ONE (13:55)
[2022-07-16] MEDS ORDERED: TOPIRAMATE (TopAMAX) 25 MG TAB PO SCH (21:00)
[2022-07-16] MEDS ORDERED: ATORVASTATIN 20 MG TAB PO SCH (21:00)
[2022-07-16] MEDS ORDERED: diphenhydrAMINE 50MG CAP PO ONE (21:00)
[2022-07-16] MEDS ORDERED: REXU1TAB5 PO (22:01)
[2022-07-16] MEDS ORDERED: DULO30CA9 PO (22:07)
[2022-07-16] MEDS ORDERED: NICO2GUM50 PO (22:07)
[2022-07-16] MEDS ORDERED: QUET50TA4 PO (22:07)
[2022-07-16] MEDS ORDERED: TRAZ-186 PO (22:07)
[2022-07-16] MEDS ORDERED: HOME MED LIST COMPLETE! XX SCH (22:10)
[2022-07-16] MEDS: busPIRone 5 MG TAB PO SCH (23:27)
[2022-07-16] MEDS: PREGABALIN 100 MG CAP (LYRICA) PO SCH (23:28)
[2022-07-16] MEDS: clonazePAM 1 MG TAB PO SCH (23:28)
[2022-07-17] MEDS ORDERED: QUEtiapine FUMARATE 50MG TAB PO PRN (02:15)
[2022-07-17] MEDS ORDERED: LEVOTHYROXINE 75MCG TABLET (0.075MG) PO SCH (06:00)
[2022-07-17] MEDS ORDERED: glipiZIDE (GLUCOTROL) 5 MG TAB PO SCH (07:30)
[2022-07-17] MEDS: clonazePAM 1 MG TAB PO SCH (08:26)
[2022-07-17] MEDS: PREGABALIN 100 MG CAP (LYRICA) PO SCH (08:27)
[2022-07-17] MEDS: busPIRone 5 MG TAB PO SCH (08:29)
[2022-07-17] MEDS ORDERED: MAGNESIUM OXIDE 400MG TAB (MAG-OX) PO SCH (09:00)
[2022-07-17] MEDS ORDERED: DULoxetine 30MG CAPSULE (CYMBALTA) PO SCH (09:00)
[2022-07-17] MEDS ORDERED: BREXPIPRAZOLE 0.5MG TABLET (REXULTI) PO SCH (09:00)
[2022-07-17 12:55] VITALS: BP 115/56
== END 2022-07-17 13:25 | disposition home or self-care (01) ==
LOC: M ED 12:10
DX: R44.0 Auditory hallucinations (principal); E11.9 Type 2 diabetes mellitus without complications; K76.0 Fatty (change of) liver, not elsewhere classified; F32.9 Major depressive disorder, single episode, unspecified; F41.9 Anxiety disorder, unspecified; F17.200 Nicotine dependence, unspecified, uncomplicated; F12.10 Cannabis abuse, uncomplicated; Z83.3 Family history of diabetes mellitus; Z81.8 Family history of other mental and behavioral disorders; Z82.49 Family history of ischemic heart disease and other diseases of the circulatory system; Z79.84 Long term (current) use of oral hypoglycemic drugs; Z79.890 Hormone replacement therapy; Z79.899 Other long term (current) drug therapy

== ENCOUNTER 2022-08-03 19:20 | Emergency (ER) | payer MEDICAID, OTHER ==
[~2022-08-03] VITALS: Ht 152.4 cm; Wt 87.5 kg
[~2022-08-03 19:20] MED LIST changes: +DULO30CA9 PO; +NICO2GUM50 PO; +TRAZ-186 PO
[2022-08-03] MEDS ORDERED: CHLOR50TA PO (19:58)
[2022-08-03] MEDS ORDERED: clonazePAM 1 MG TAB PO ONE (20:55)
[2022-08-03 20:57] LABS: HEMATOCRIT 35.6 % (36.0-47.0); HEMOGLOBIN 11.4 g/dl (12.0-15.5); MEAN CORPUSCULAR HEMOGLOBIN 29.5 pg (27.0-33.0); MEAN CORPUSCULAR VOLUME 92.2 fl (80.0-96.0); PLATELET COUNT, AUTOMATED 382 10^3/uL (150-450); RED BLOOD COUNT 3.86 10^6/uL (4.00-5.40); WHITE BLOOD COUNT 13.4 10^3/uL (4.0-10.0)
[2022-08-03 21:19] LABS: HCG, SERUM QUALITATIVE NEGATIVE (NEGATIVE)
[2022-08-03 21:27] LABS: ACETAMINOPHEN LEVEL < 2.0 UG/ML (10.0-20.0); ALBUMIN 3.3 G/DL (3.2-5.2); ALKALINE PHOSPHATASE 81 U/L (46-116); ALT/SGPT 59 U/L (7.0-40); AST/SGOT 43 U/L (<34); BILIRUBIN,DIRECT < 0.1 MG/DL (<0.4); BILIRUBIN,TOTAL 0.2 MG/DL (0.3-1.2); BLOOD UREA NITROGEN 13 MG/DL (9-23); CALCIUM LEVEL 9.6 MG/DL (8.5-10.1); CARBON DIOXIDE LEVEL 24 MMOL/L (20-31); CHLORIDE LEVEL 105 MMOL/L (98-107); CREATININE FOR GFR 0.55 MG/DL (0.55-1.30); GLOMERULAR FILTRATION RATE > 60.0 (>60); GLUCOSE, FASTING 118 MG/DL (60-100); POTASSIUM SERUM 3.9 MMOL/L (3.5-5.1); SALICYLATE LEVEL < 3.0 MG/DL (<30); SODIUM LEVEL 139 MMOL/L (136-145); TOTAL PROTEIN 6.7 G/DL (5.7-8.2)
[2022-08-03 21:32] LABS: RSV AMPLIFICATION NEGATIVE (NEGATIVE)
[2022-08-03 21:45] LABS: ETHYL ALCOHOL (ETHANOL) 0.004 % (0.000-0.010)
[2022-08-03] MEDS ORDERED: HOME MED LIST COMPLETE! XX SCH (22:10)
[2022-08-03 22:35] LABS: AMPHETAMINES LEVEL URINE NEGATIVE (NEGATIVE); BARBITURATES URINE NEGATIVE (NEGATIVE); BENZODIAZEPINES URINE NEGATIVE (NEGATIVE); COCAINE METABOLITE URINE NEGATIVE (NEGATIVE); METHADONE URINE NEGATIVE (NEGATIVE); OPIATES URINE NEGATIVE (NEGATIVE)
[2022-08-03 22:36] LABS: CANNABINOIDS URINE POSITIVE (NEGATIVE); PHENCYCLIDINE URINE NEGATIVE (NEGATIVE)
[2022-08-04] MEDS ORDERED: LEVOTHYROXINE 75MCG TABLET (0.075MG) PO SCH ×2 (06:00→08:10)
[2022-08-04] MEDS ORDERED: QUEtiapine FUMARATE 50MG TAB PO PRN (07:50)
[2022-08-04] MEDS: LEVOTHYROXINE 75MCG TABLET (0.075MG) PO SCH (08:32)
[2022-08-04] MEDS: clonazePAM 1 MG TAB PO SCH ×2 (09:34→22:20)
[2022-08-04] MEDS: DULoxetine 30MG CAPSULE (CYMBALTA) PO SCH (09:34)
[2022-08-04] MEDS: glipiZIDE XL 5 MG TABCR PO SCH ×2 (09:34→22:43)
[2022-08-04] MEDS: busPIRone 5 MG TAB PO SCH ×3 (09:34→22:20)
[2022-08-04] MEDS: PREGABALIN 100 MG CAP (LYRICA) PO SCH ×3 (09:34→22:20)
[2022-08-04] MEDS: BREXPIPRAZOLE 2MG TABLET (REXULTI) PO SCH (09:35)
[2022-08-04] MEDS: BREXPIPRAZOLE 0.5MG TABLET (REXULTI) PO SCH (09:35)
[2022-08-04] MEDS: hydrOXYzine 50 MG TAB PO PRN (19:50)
[2022-08-04] MEDS: ATORVASTATIN 10 MG TAB PO SCH (22:20)
[2022-08-04] MEDS: TOPIRAMATE (TopAMAX) 100 MG TAB PO SCH (22:20)
[2022-08-05] MEDS: hydrOXYzine 50 MG TAB PO PRN (06:32)
[2022-08-05] MEDS: LEVOTHYROXINE 75MCG TABLET (0.075MG) PO SCH (06:32)
[2022-08-05] MEDS: DULoxetine 30MG CAPSULE (CYMBALTA) PO SCH (08:31)
[2022-08-05] MEDS: clonazePAM 1 MG TAB PO SCH ×2 (08:32→21:04)
[2022-08-05] MEDS: busPIRone 5 MG TAB PO SCH ×3 (08:33→21:04)
[2022-08-05] MEDS: PREGABALIN 100 MG CAP (LYRICA) PO SCH ×3 (08:33→21:04)
[2022-08-05] MEDS: BREXPIPRAZOLE 2MG TABLET (REXULTI) PO SCH (11:07)
[2022-08-05] MEDS: BREXPIPRAZOLE 0.5MG TABLET (REXULTI) PO SCH (11:07)
[2022-08-05] MEDS: glipiZIDE XL 5 MG TABCR PO SCH ×2 (11:09→22:51)
[2022-08-05] MEDS: TOPIRAMATE (TopAMAX) 100 MG TAB PO SCH (21:04)
[2022-08-05] MEDS: ATORVASTATIN 10 MG TAB PO SCH (21:04)
[2022-08-06] MEDS: LEVOTHYROXINE 75MCG TABLET (0.075MG) PO SCH (06:03)
[2022-08-06 06:06] VITALS: BP 109/63
== END 2022-08-06 06:39 ==
LOC: M ED 19:20
DX: R45.851 Suicidal ideations (principal); J45.909 Unspecified asthma, uncomplicated; F17.290 Nicotine dependence, other tobacco product, uncomplicated; Z79.899 Other long term (current) drug therapy

== ENCOUNTER → 2022-08-18 | Outpatient (CLI) | payer OTHER, MEDICAID ==
[~2022-08-18] MED LIST changes: +CHLOR50TA PO
== END ==
LOC: M RAD 10:49
PROVIDERS: ATTEND Nurse Practitioner Family
DX: R10.2 Pelvic and perineal pain (principal)

== ENCOUNTER 2022-08-21 04:45 | Inpatient (IN) | payer MEDICAID, OTHER ==
[~2022-08-21] VITALS: Ht 152.4 cm; Wt 87.9 kg
[2022-08-21 05:34] LABS: HEMATOCRIT 35.8 % (36.0-47.0); HEMOGLOBIN 11.3 g/dl (12.0-15.5); MEAN CORPUSCULAR HEMOGLOBIN 29.6 pg (27.0-33.0); MEAN CORPUSCULAR HGB CONC 31.6 g/dl (32.0-36.5); MEAN CORPUSCULAR VOLUME 93.7 fl (80.0-96.0); PLATELET COUNT, AUTOMATED 384 10^3/uL (150-450); RED BLOOD COUNT 3.82 10^6/uL (4.00-5.40); WHITE BLOOD COUNT 11.6 10^3/uL (4.0-10.0)
[2022-08-21 05:54] LABS: AMPHETAMINES LEVEL URINE NEGATIVE (NEGATIVE); BARBITURATES URINE NEGATIVE (NEGATIVE); BENZODIAZEPINES URINE NEGATIVE (NEGATIVE); COCAINE METABOLITE URINE NEGATIVE (NEGATIVE); PHENCYCLIDINE URINE NEGATIVE (NEGATIVE)
[2022-08-21] MEDS ORDERED: KETO10TAB PO (05:54)
[2022-08-21] MEDS ORDERED: VITATAB73 PO (05:54)
[2022-08-21 05:55] LABS: METHADONE URINE NEGATIVE (NEGATIVE); OPIATES URINE NEGATIVE (NEGATIVE)
[2022-08-21] MEDS ORDERED: HOME MED LIST COMPLETE! XX SCH (05:55)
[2022-08-21 05:56] LABS: ETHYL ALCOHOL (ETHANOL) < 0.003 % (0.000-0.010)
[2022-08-21 05:58] LABS: CANNABINOIDS URINE POSITIVE (NEGATIVE); SALICYLATE LEVEL < 3.0 MG/DL (<30)
[2022-08-21 05:59] LABS: ACETAMINOPHEN LEVEL < 2.0 UG/ML (10.0-20.0)
[2022-08-21 06:02] LABS: ALBUMIN 3.4 G/DL (3.2-5.2); ALKALINE PHOSPHATASE 89 U/L (46-116); ALT/SGPT 109 U/L (7.0-40); AST/SGOT 101 U/L (<34); BILIRUBIN,DIRECT < 0.1 MG/DL (<0.4); BILIRUBIN,TOTAL 0.3 MG/DL (0.3-1.2); BLOOD UREA NITROGEN 18 MG/DL (9-23); CALCIUM LEVEL 9.1 MG/DL (8.5-10.1); CARBON DIOXIDE LEVEL 23 MMOL/L (20-31); CHLORIDE LEVEL 105 MMOL/L (98-107); CREATININE FOR GFR 0.67 MG/DL (0.55-1.30); GLOMERULAR FILTRATION RATE > 60.0 (>60); GLUCOSE, FASTING 113 MG/DL (60-100); POTASSIUM SERUM 4.1 MMOL/L (3.5-5.1); SODIUM LEVEL 137 MMOL/L (136-145); THYROID STIMULATING HORMONE 3.935 uIU/ML (0.55-4.78); TOTAL PROTEIN 6.8 G/DL (5.7-8.2)
[2022-08-21 06:25] LABS: HCG, SERUM QUALITATIVE NEGATIVE (NEGATIVE)
[2022-08-21] MEDS: NICOTINE 21MG/24HR 1 EA TRANSDERMAL TD SCH ×2 (09:00→22:53)
[2022-08-21] MEDS ORDERED: clonazePAM 1 MG TAB PO ONE (12:15)
[2022-08-21] MEDS ORDERED: IBUPROFEN 400MG TAB PO PRN (13:10)
[2022-08-21] MEDS ORDERED: MAALOX 30 ML SUSP *UDC PO PRN (13:10)
[2022-08-21] MEDS ORDERED: MOM 30ML SUSPENSION UDC PO PRN (13:10)
[2022-08-21] MEDS ORDERED: traZODone 50 MG TAB PO PRN (13:10)
[2022-08-21 13:37] VITALS: BP 124/82
[2022-08-21] MEDS: KETOROLAC TROMETHAMINE 10 MG TAB PO SCH ×3 (14:48→22:53)
[2022-08-21] MEDS: PREGABALIN 100 MG CAP (LYRICA) PO SCH ×2 (16:04→20:22)
[2022-08-21] MEDS: busPIRone 10 MG TAB PO SCH ×2 (16:05→20:22)
[2022-08-21] MEDS: hydrOXYzine 50 MG TAB PO PRN ×2 (16:05→22:53)
[2022-08-21 18:47] VITALS: BP 135/88
[2022-08-21] MEDS: glipiZIDE XL 5 MG TABCR PO SCH (20:22)
[2022-08-21] MEDS: TOPIRAMATE (TopAMAX) 100 MG TAB PO SCH (20:22)
[2022-08-21] MEDS: clonazePAM 1 MG TAB PO SCH (20:22)
[2022-08-21] MEDS: ATORVASTATIN 10 MG TAB PO SCH (20:22)
[2022-08-21] MEDS ORDERED: QUEtiapine FUMARATE 25 MG TAB PO PRN (20:45)
[2022-08-22] MEDS: LEVOTHYROXINE 75MCG TABLET (0.075MG) PO SCH (05:35)
[2022-08-22] MEDS: KETOROLAC TROMETHAMINE 10 MG TAB PO SCH ×4 (05:35→23:46)
[2022-08-22 05:53] VITALS: BP 107/70
[2022-08-22] MEDS ORDERED: LURASIDONE HCL 40MG TAB (LATUDA) PO SCH (08:00)
[2022-08-22] MEDS: clonazePAM 1 MG TAB PO SCH ×2 (08:28→20:12)
[2022-08-22] MEDS: DULoxetine 30MG CAPSULE (CYMBALTA) PO SCH (08:28)
[2022-08-22] MEDS: busPIRone 10 MG TAB PO SCH ×3 (08:28→20:12)
[2022-08-22] MEDS: NICOTINE 21MG/24HR 1 EA TRANSDERMAL TD SCH (08:28)
[2022-08-22] MEDS: glipiZIDE XL 5 MG TABCR PO SCH ×2 (08:28→20:12)
[2022-08-22] MEDS: PREGABALIN 100 MG CAP (LYRICA) PO SCH ×3 (08:28→20:12)
[2022-08-22] MEDS: ENOXAPARIN 40MG/0.4ML SYRINGE (J1650 PER 10MG) SC SCH (09:00)
[2022-08-22] MEDS: AMOXICILLIN 500 MG CAP PO SCH ×3 (10:16→21:59)
[2022-08-22] MEDS ORDERED: LURASIDONE 20 MG TAB (LATUDA) PO SCH (12:33)
[2022-08-22] MEDS: LURASIDONE 20 MG TAB (LATUDA) PO SCH (12:48)
[2022-08-22 16:13] VITALS: BP 127/75
[2022-08-22] MEDS: hydrOXYzine 50 MG TAB PO PRN (17:57)
[2022-08-22] MEDS: TOPIRAMATE (TopAMAX) 100 MG TAB PO SCH (20:12)
[2022-08-22] MEDS: ATORVASTATIN 10 MG TAB PO SCH (20:12)
[2022-08-22] MEDS: hydrOXYzine 50 MG TAB PO SCH (20:12)
[2022-08-23] MEDS: AMOXICILLIN 500 MG CAP PO SCH ×3 (06:01→21:18)
[2022-08-23] MEDS: LEVOTHYROXINE 75MCG TABLET (0.075MG) PO SCH (06:01)
[2022-08-23] MEDS: KETOROLAC TROMETHAMINE 10 MG TAB PO SCH ×4 (06:05→23:02)
[2022-08-23 06:33] VITALS: BP 109/59
[2022-08-23] MEDS: PREGABALIN 100 MG CAP (LYRICA) PO SCH ×3 (08:58→20:28)
[2022-08-23] MEDS: clonazePAM 1 MG TAB PO SCH ×2 (08:58→20:28)
[2022-08-23] MEDS: busPIRone 10 MG TAB PO SCH ×3 (08:58→20:28)
[2022-08-23] MEDS: LURASIDONE 20 MG TAB (LATUDA) PO SCH (08:58)
[2022-08-23] MEDS: glipiZIDE XL 5 MG TABCR PO SCH ×2 (08:59→20:27)
[2022-08-23] MEDS: DULoxetine 30MG CAPSULE (CYMBALTA) PO SCH (08:59)
[2022-08-23] MEDS: NICOTINE 21MG/24HR 1 EA TRANSDERMAL TD SCH (08:59)
[2022-08-23] MEDS: ENOXAPARIN 40MG/0.4ML SYRINGE (J1650 PER 10MG) SC SCH (09:00)
[2022-08-23] MEDS: hydrOXYzine 50 MG TAB PO PRN (15:42)
[2022-08-23 16:44] VITALS: BP 130/76
[2022-08-23] MEDS: ATORVASTATIN 10 MG TAB PO SCH (20:28)
[2022-08-23] MEDS: hydrOXYzine 50 MG TAB PO SCH (20:28)
[2022-08-23] MEDS: TOPIRAMATE (TopAMAX) 100 MG TAB PO SCH (20:28)
[2022-08-23] MEDS ORDERED: DOXEPIN 25 MG CAP PO SCH (21:00)
[2022-08-24] MEDS: LEVOTHYROXINE 75MCG TABLET (0.075MG) PO SCH (06:00)
[2022-08-24] MEDS: AMOXICILLIN 500 MG CAP PO SCH ×3 (06:00→21:08)
[2022-08-24] MEDS: KETOROLAC TROMETHAMINE 10 MG TAB PO SCH ×3 (06:01→18:12)
[2022-08-24 06:10] VITALS: BP 129/78
[2022-08-24] MEDS: ENOXAPARIN 40MG/0.4ML SYRINGE (J1650 PER 10MG) SC SCH (08:27)
[2022-08-24] MEDS: NICOTINE 21MG/24HR 1 EA TRANSDERMAL TD SCH (08:31)
[2022-08-24] MEDS: busPIRone 10 MG TAB PO SCH ×3 (08:32→21:07)
[2022-08-24] MEDS: clonazePAM 1 MG TAB PO SCH ×2 (08:32→21:08)
[2022-08-24] MEDS: DULoxetine 30MG CAPSULE (CYMBALTA) PO SCH (08:32)
[2022-08-24] MEDS: PREGABALIN 100 MG CAP (LYRICA) PO SCH ×3 (08:32→21:08)
[2022-08-24] MEDS: LURASIDONE HCL 40MG TAB (LATUDA) PO SCH (08:32)
[2022-08-24] MEDS: glipiZIDE XL 5 MG TABCR PO SCH ×2 (08:32→21:09)
[2022-08-24 16:13] VITALS: BP 119/64
[2022-08-24] MEDS ORDERED: DOXEPIN 25 MG CAP PO SCH (21:00)
[2022-08-24] MEDS: ATORVASTATIN 10 MG TAB PO SCH (21:08)
[2022-08-24] MEDS: TOPIRAMATE (TopAMAX) 100 MG TAB PO SCH (21:08)
[2022-08-24] MEDS: hydrOXYzine 50 MG TAB PO SCH (21:09)
[2022-08-25] MEDS: LEVOTHYROXINE 75MCG TABLET (0.075MG) PO SCH (06:00)
[2022-08-25] MEDS: AMOXICILLIN 500 MG CAP PO SCH (06:04)
[2022-08-25] MEDS: KETOROLAC TROMETHAMINE 10 MG TAB PO SCH ×3 (06:04→13:10)
[2022-08-25 06:19] LABS: HEMATOCRIT 37.9 % (36.0-47.0); HEMOGLOBIN 11.7 g/dl (12.0-15.5); MEAN CORPUSCULAR HGB CONC 30.9 g/dl (32.0-36.5); MEAN CORPUSCULAR VOLUME 93.8 fl (80.0-96.0); PLATELET COUNT, AUTOMATED 416 10^3/uL (150-450); RED BLOOD COUNT 4.04 10^6/uL (4.00-5.40)
[2022-08-25 06:38] VITALS: BP 100/57
[2022-08-25] MEDS: ENOXAPARIN 40MG/0.4ML SYRINGE (J1650 PER 10MG) SC SCH (09:00)
[2022-08-25] MEDS: clonazePAM 1 MG TAB PO SCH (09:50)
[2022-08-25] MEDS: DULoxetine 30MG CAPSULE (CYMBALTA) PO SCH (09:50)
[2022-08-25] MEDS: PREGABALIN 100 MG CAP (LYRICA) PO SCH (09:50)
[2022-08-25] MEDS: LURASIDONE HCL 40MG TAB (LATUDA) PO SCH (09:53)
[2022-08-25] MEDS: glipiZIDE XL 5 MG TABCR PO SCH (09:53)
[2022-08-25] MEDS: busPIRone 10 MG TAB PO SCH (09:54)
[2022-08-25] MEDS: NICOTINE 21MG/24HR 1 EA TRANSDERMAL TD SCH (09:54)
[2022-08-25] MEDS ORDERED: DOXE25CA PO (10:52)
[2022-08-25] MEDS ORDERED: LATU40TA2 PO (10:52)
[2022-08-25] MEDS ORDERED: NICO1DIS12 TD (10:54)
== END 2022-08-25 13:21 | disposition home or self-care (01) | DRG 751 ==
LOC: M ED 04:45 → M ED INP 13:08 → M PSY 13:43
PROVIDERS: ADMIT Student in an Organized Health Care Education/Training Program; ATTEND Psychiatry & Neurology Psychiatry
DX: F33.1 Major depressive disorder, recurrent, moderate (principal); F43.10 Post-traumatic stress disorder, unspecified; F60.3 Borderline personality disorder; F41.1 Generalized anxiety disorder; R45.851 Suicidal ideations; E78.5 Hyperlipidemia, unspecified; Z63.0 Problems in relationship with spouse or partner; Z20.822 Contact with and (suspected) exposure to COVID-19; E11.9 Type 2 diabetes mellitus without complications; K76.0 Fatty (change of) liver, not elsewhere classified; E03.9 Hypothyroidism, unspecified; F17.290 Nicotine dependence, other tobacco product, uncomplicated; J45.909 Unspecified asthma, uncomplicated; K04.7 Periapical abscess without sinus; Z71.6 Tobacco abuse counseling; Z79.890 Hormone replacement therapy; Z79.84 Long term (current) use of oral hypoglycemic drugs; Z79.899 Other long term (current) drug therapy; Z91.51 Personal history of suicidal behavior; Z91.52 Personal history of nonsuicidal self-harm; Z81.8 Family history of other mental and behavioral disorders

== ENCOUNTER 2022-09-15 21:09 | Emergency (ER) | payer MEDICAID ==
[~2022-09-15] VITALS: Ht 152.4 cm; Wt 88.1 kg
[2022-09-15 21:09] VITALS: BP 118/58
[~2022-09-15 21:09] MED LIST changes: +DOXE25CA PO; +LATU40TA2 PO; +NICO1DIS12 TD; +TOPI-254 PO; -TOPI50TA9 PO
== END 2022-09-15 21:24 | disposition left against medical advice (07) ==
LOC: M ED 21:09
DX: Z53.21 Procedure and treatment not carried out due to patient leaving prior to being seen by health care provider (principal)

== ENCOUNTER 2022-09-19 04:08 | Inpatient (IN) | payer MEDICAID ==
[~2022-09-19] VITALS: Ht 152.4 cm; Wt 88.2 kg
[2022-09-19 05:00] LABS: HEMATOCRIT 36.7 % (36.0-47.0); HEMOGLOBIN 11.9 g/dl (12.0-15.5); MEAN CORPUSCULAR HEMOGLOBIN 29.3 pg (27.0-33.0); MEAN CORPUSCULAR HGB CONC 32.4 g/dl (32.0-36.5); MEAN CORPUSCULAR VOLUME 90.4 fl (80.0-96.0); PLATELET COUNT, AUTOMATED 380 10^3/uL (150-450); RED BLOOD COUNT 4.06 10^6/uL (4.00-5.40); WHITE BLOOD COUNT 11.5 10^3/uL (4.0-10.0)
[2022-09-19 05:23] LABS: AMPHETAMINES LEVEL URINE NEGATIVE (NEGATIVE); BARBITURATES URINE NEGATIVE (NEGATIVE); COCAINE METABOLITE URINE NEGATIVE (NEGATIVE); METHADONE URINE NEGATIVE (NEGATIVE); OPIATES URINE NEGATIVE (NEGATIVE); PHENCYCLIDINE URINE NEGATIVE (NEGATIVE)
[2022-09-19 05:24] LABS: BENZODIAZEPINES URINE NEGATIVE (NEGATIVE)
[2022-09-19 05:25] LABS: ETHYL ALCOHOL (ETHANOL) < 0.003 % (0.000-0.010)
[2022-09-19 05:27] LABS: ACETAMINOPHEN LEVEL < 2.0 UG/ML (10.0-20.0); SALICYLATE LEVEL < 3.0 MG/DL (<30)
[2022-09-19 05:28] LABS: CANNABINOIDS URINE POSITIVE (NEGATIVE)
[2022-09-19 05:31] LABS: ALBUMIN 3.6 G/DL (3.2-5.2); ALKALINE PHOSPHATASE 94 U/L (46-116); ALT/SGPT 168 U/L (7.0-40); AST/SGOT 126 U/L (<34); BILIRUBIN,DIRECT < 0.1 MG/DL (<0.4); BILIRUBIN,TOTAL 0.2 MG/DL (0.3-1.2); BLOOD UREA NITROGEN 8 MG/DL (9-23); CARBON DIOXIDE LEVEL 21 MMOL/L (20-31); CHLORIDE LEVEL 105 MMOL/L (98-107); CREATININE FOR GFR 0.52 MG/DL (0.55-1.30); GLOMERULAR FILTRATION RATE > 60.0 (>60); GLUCOSE, FASTING 149 MG/DL (60-100); POTASSIUM SERUM 3.7 MMOL/L (3.5-5.1); SODIUM LEVEL 137 MMOL/L (136-145); THYROID STIMULATING HORMONE 3.723 uIU/ML (0.55-4.78); TOTAL PROTEIN 6.9 G/DL (5.7-8.2)
[2022-09-19 05:39] LABS: HCG, SERUM QUALITATIVE NEGATIVE (NEGATIVE)
[2022-09-19] MEDS: KETOROLAC TROMETHAMINE 10 MG TAB PO SCH ×3 (06:00→17:35)
[2022-09-19] MEDS ORDERED: MOM 30ML SUSPENSION UDC PO PRN (06:55)
[2022-09-19] MEDS ORDERED: NICOTINE 21MG/24HR 1 EA TRANSDERMAL TD PRN (06:55)
[2022-09-19] MEDS ORDERED: MAALOX 30 ML SUSP *UDC PO PRN (06:55)
[2022-09-19] MEDS ORDERED: ACETAMINOPHEN TAB 650MG DOSE (2X325MG) PO PRN (06:55)
[2022-09-19] MEDS ORDERED: DOXE25CA PO (11:15)
[2022-09-19] MEDS ORDERED: LATU40TA2 PO (11:15)
[2022-09-19] MEDS ORDERED: DULO1CAP5 PO (11:15)
[2022-09-19] MEDS ORDERED: HYDR50TA70 PO (11:15)
[2022-09-19] MEDS ORDERED: HOME MED LIST COMPLETE! XX SCH (11:20)
[2022-09-19 11:46] VITALS: BP 112/68
[2022-09-19] MEDS: DULoxetine 30MG CAPSULE (CYMBALTA) PO SCH ×2 (12:35→17:34)
[2022-09-19] MEDS: clonazePAM 1 MG TAB PO SCH ×2 (12:35→21:41)
[2022-09-19] MEDS: LEVOTHYROXINE 75MCG TABLET (0.075MG) PO SCH (12:37)
[2022-09-19] MEDS: busPIRone 5 MG TAB PO SCH ×3 (12:38→21:41)
[2022-09-19] MEDS: LURASIDONE HCL 40MG TAB (LATUDA) PO SCH (12:38)
[2022-09-19] MEDS: PREGABALIN 100 MG CAP (LYRICA) PO SCH ×3 (12:39→21:41)
[2022-09-19] MEDS: glipiZIDE XL 5 MG TABCR PO SCH ×2 (14:06→21:41)
[2022-09-19 18:19] VITALS: BP 121/74
[2022-09-19] MEDS: TOPIRAMATE (TopAMAX) 25 MG TAB PO SCH (21:41)
[2022-09-19] MEDS: ATORVASTATIN 10 MG TAB PO SCH (21:41)
[2022-09-19] MEDS: DOXEPIN 25 MG CAP PO SCH (21:41)
[2022-09-19] MEDS: LORYNA PO SCH (22:55)
[2022-09-20] MEDS: KETOROLAC TROMETHAMINE 10 MG TAB PO SCH ×4 (00:08→18:09)
[2022-09-20] MEDS: LEVOTHYROXINE 75MCG TABLET (0.075MG) PO SCH (06:30)
[2022-09-20 06:54] VITALS: BP 107/64
[2022-09-20] MEDS: clonazePAM 1 MG TAB PO SCH ×2 (08:29→21:32)
[2022-09-20] MEDS: LURASIDONE HCL 40MG TAB (LATUDA) PO SCH (08:29)
[2022-09-20] MEDS: busPIRone 5 MG TAB PO SCH ×3 (08:29→21:32)
[2022-09-20] MEDS: DULoxetine 30MG CAPSULE (CYMBALTA) PO SCH ×2 (08:29→18:05)
[2022-09-20] MEDS: PREGABALIN 100 MG CAP (LYRICA) PO SCH ×3 (08:29→21:32)
[2022-09-20] MEDS: glipiZIDE XL 5 MG TABCR PO SCH ×2 (09:18→21:33)
[2022-09-20 16:25] VITALS: BP 119/70
[2022-09-20] MEDS: ATORVASTATIN 10 MG TAB PO SCH (21:32)
[2022-09-20] MEDS: TOPIRAMATE (TopAMAX) 25 MG TAB PO SCH (21:32)
[2022-09-20] MEDS: DOXEPIN 25 MG CAP PO SCH (21:32)
[2022-09-20] MEDS: LORYNA PO SCH (21:33)
[2022-09-20] MEDS: hydrOXYzine 50 MG TAB PO PRN (22:39)
[2022-09-21] MEDS: KETOROLAC TROMETHAMINE 10 MG TAB PO SCH ×4 (00:34→17:14)
[2022-09-21] MEDS: LEVOTHYROXINE 75MCG TABLET (0.075MG) PO SCH (06:07)
[2022-09-21 06:50] VITALS: BP 110/59
[2022-09-21] MEDS: busPIRone 5 MG TAB PO SCH ×3 (08:40→20:54)
[2022-09-21] MEDS: DULoxetine 30MG CAPSULE (CYMBALTA) PO SCH ×2 (08:40→17:13)
[2022-09-21] MEDS: LURASIDONE HCL 40MG TAB (LATUDA) PO SCH (08:40)
[2022-09-21] MEDS: clonazePAM 1 MG TAB PO SCH ×2 (08:40→20:54)
[2022-09-21] MEDS: PREGABALIN 100 MG CAP (LYRICA) PO SCH ×3 (08:40→20:55)
[2022-09-21] MEDS: glipiZIDE XL 5 MG TABCR PO SCH ×2 (09:07→20:54)
[2022-09-21 16:35] VITALS: BP 120/71
[2022-09-21] MEDS: ATORVASTATIN 10 MG TAB PO SCH (20:54)
[2022-09-21] MEDS: DOXEPIN 25 MG CAP PO SCH (20:54)
[2022-09-21] MEDS: LORYNA PO SCH (20:54)
[2022-09-21] MEDS: hydrOXYzine 50 MG TAB PO PRN (20:55)
[2022-09-21] MEDS: TOPIRAMATE (TopAMAX) 25 MG TAB PO SCH (20:55)
[2022-09-22] MEDS: LEVOTHYROXINE 75MCG TABLET (0.075MG) PO SCH (05:35)
[2022-09-22] MEDS: KETOROLAC TROMETHAMINE 10 MG TAB PO SCH ×2 (06:10)
[2022-09-22 06:30] VITALS: BP 100/55
[2022-09-22] MEDS ORDERED: HYDR50CA2 PO (08:26)
[2022-09-22] MEDS ORDERED: NICO21PAT TD (08:26)
[2022-09-22] MEDS ORDERED: DULO1CAP5 PO (08:26)
[2022-09-22] MEDS ORDERED: PREG100CA PO (08:26)
[2022-09-22] MEDS ORDERED: DULO1CAP6 PO (08:26)
[2022-09-22] MEDS ORDERED: CLON1TAB8 PO (08:26)
[2022-09-22] MEDS ORDERED: TOPI-254 PO (08:26)
[2022-09-22] MEDS ORDERED: HYDR50TA70 PO (08:26)
[2022-09-22] MEDS ORDERED: LATU40TA2 PO (08:26)
[2022-09-22] MEDS ORDERED: BUSP5TA PO (08:26)
[2022-09-22] MEDS: glipiZIDE XL 5 MG TABCR PO SCH (08:33)
[2022-09-22] MEDS: clonazePAM 1 MG TAB PO SCH (08:34)
[2022-09-22] MEDS: LURASIDONE HCL 40MG TAB (LATUDA) PO SCH (08:34)
[2022-09-22] MEDS: PREGABALIN 100 MG CAP (LYRICA) PO SCH (08:34)
[2022-09-22] MEDS: busPIRone 5 MG TAB PO SCH (08:34)
[2022-09-22] MEDS: DULoxetine 30MG CAPSULE (CYMBALTA) PO SCH (08:35)
== END 2022-09-22 11:57 | disposition home or self-care (01) | DRG 751 ==
LOC: M ED 04:08 → M ED INP 06:52 → M PSY 12:00
PROVIDERS: ADMIT Psychiatry & Neurology Psychiatry; ATTEND Student in an Organized Health Care Education/Training Program
DX: F33.1 Major depressive disorder, recurrent, moderate (principal); E11.9 Type 2 diabetes mellitus without complications; R45.851 Suicidal ideations; F12.90 Cannabis use, unspecified, uncomplicated; F60.3 Borderline personality disorder; F41.1 Generalized anxiety disorder; F43.10 Post-traumatic stress disorder, unspecified; Z62.810 Personal history of physical and sexual abuse in childhood; F17.290 Nicotine dependence, other tobacco product, uncomplicated; Z79.899 Other long term (current) drug therapy; J45.909 Unspecified asthma, uncomplicated; M54.2 Cervicalgia; E03.9 Hypothyroidism, unspecified

== ENCOUNTER → 2023-04-22 | Outpatient (REF) | payer MEDICAID ==
[~2023-04-22] MED LIST changes: +BENZ0.5T2 PO; -BENZ0.5T23 PO; +HYDR50TA70 PO; +NICO21PAT TD
[2023-04-22 17:21] LABS: ALBUMIN 3.8 G/DL (3.2-5.2); ALKALINE PHOSPHATASE 144 U/L (46-116); ALT/SGPT 157 U/L (7.0-40); AST/SGOT 367 U/L (<34); BILIRUBIN,TOTAL 0.4 MG/DL (0.3-1.2); BLOOD UREA NITROGEN 7 MG/DL (9-23); CALCIUM LEVEL 9.6 MG/DL (8.5-10.1); CARBON DIOXIDE LEVEL 24 MMOL/L (20-31); CHLORIDE LEVEL 100 MMOL/L (98-107); CHOLESTEROL LEVEL 206 MG/DL (<200); CHOLESTEROL RISK RATIO 5.24 (<5); CREATININE FOR GFR 0.46 MG/DL (0.55-1.30); FREE T3 2.1 PG/ML (2.3-4.2); FREE T4 1.29 NG/DL (0.89-1.76); GLOMERULAR FILTRATION RATE > 60.0 (>60); GLUCOSE, FASTING 219 MG/DL (60-100); HDL CHOLESTEROL 39.3 MG/DL (>40); LDL CHOLESTEROL 109.7 MG/DL (<100); NON-HDL-C 166.7 MG/DL; POTASSIUM SERUM 4.4 MMOL/L (3.5-5.1); SODIUM LEVEL 137 MMOL/L (136-145); THYROID STIMULATING HORMONE 14.084 uIU/ML (0.55-4.78); TOTAL PROTEIN 7.3 G/DL (5.7-8.2); TOTAL T3 107.5 NG/DL (60.0-181.0); TRIGLYCERIDES LEVEL 285 MG/DL (<150)
[2023-04-22 17:55] LABS: HEMOGLOBIN A1c 9.4 % (4.0-6.0)
== END ==
LOC: M LABDRWAD 15:59
DX: E11.9 Type 2 diabetes mellitus without complications (principal); E03.9 Hypothyroidism, unspecified

== ENCOUNTER 2023-05-22 16:10 | Emergency (ER) | payer MEDICAID, OTHER ==
[~2023-05-22] VITALS: Ht 152.4 cm; Wt 88.4 kg
[2023-05-22] MEDS ORDERED: SEMA0.257 SQ (16:22)
[2023-05-22] MEDS ORDERED: NS 1,000 ML IV ONE (16:50)
[2023-05-22] MEDS ORDERED: ONDANSETRON 4MG 2ML VIAL IV ONE (16:50)
[2023-05-22 17:28] LABS: HEMATOCRIT 35.6 % (36.0-47.0); HEMOGLOBIN 11.2 g/dl (12.0-15.5); MEAN CORPUSCULAR HEMOGLOBIN 26.2 pg (27.0-33.0); MEAN CORPUSCULAR HGB CONC 31.5 g/dl (32.0-36.5); MEAN CORPUSCULAR VOLUME 83.4 fl (80.0-96.0); PLATELET COUNT, AUTOMATED 385 10^3/uL (150-450); RED BLOOD COUNT 4.27 10^6/uL (4.00-5.40); WHITE BLOOD COUNT 11.6 10^3/uL (4.0-10.0)
[2023-05-22] MEDS ORDERED: KETOROLAC 30 MG/ML 1ML VIAL IV ONE (17:35)
[2023-05-22] MEDS ORDERED: methocarbamoL 500 MG TAB PO ONE (17:35)
[2023-05-22 17:54] LABS: LIPASE 56 U/L (12-53)
[2023-05-22 17:56] LABS: ALBUMIN 3.6 G/DL (3.2-5.2); ALKALINE PHOSPHATASE 122 U/L (46-116); ALT/SGPT 123 U/L (7.0-40); AST/SGOT 233 U/L (<34); BILIRUBIN,DIRECT 0.2 MG/DL (<0.4); BILIRUBIN,TOTAL 0.4 MG/DL (0.3-1.2)
[2023-05-22 17:59] LABS: HCG, SERUM QUALITATIVE NEGATIVE (NEGATIVE)
[2023-05-22 18:52] LABS: ATYPICAL LYMPH 10 % (0-5); EOSINOPHILS 4 % (0-3); LYMPHOCYTES 35 % (16-44); MONOCYTES 3 % (0-5); NEUTROPHILS 44 % (28-66); PLATELET ESTIMATE NORMAL (NORMAL)
[2023-05-22 19:02] VITALS: BP 117/58; TEMP 97.9; O2SAT 97
[2023-05-22] MEDS ORDERED: PROMETHAZINE 25MG/ML 1ML VIAL IV ONE (19:10)
[2023-05-22] MEDS ORDERED: MORPHINE 4 MG/ML 1ML VIAL IV ONE (19:25)
[2023-05-22 20:07] LABS: CHLAMYDIA DNA AMPLIFICATION NEGATIVE (NEGATIVE); GC DNA AMPLIFICATION NEGATIVE (NEGATIVE)
[2023-05-22] MEDS ORDERED: NAPR-837 PO (20:25)
[2023-05-22] MEDS ORDERED: METH-1164 PO (20:25)
[2023-05-22] MEDS ORDERED: ONDA4TAB6 PO (20:25)
== END 2023-05-22 20:39 | disposition home or self-care (01) ==
LOC: M ED 16:10
DX: R10.2 Pelvic and perineal pain (principal); M62.830 Muscle spasm of back; E11.9 Type 2 diabetes mellitus without complications; E78.5 Hyperlipidemia, unspecified; E03.9 Hypothyroidism, unspecified; F32.A Depression, unspecified; F41.9 Anxiety disorder, unspecified; F17.200 Nicotine dependence, unspecified, uncomplicated; Z79.890 Hormone replacement therapy; Z79.899 Other long term (current) drug therapy
CPT/HCPCS: 72110; 76830; 76856; 80047; 80076; 81001; 83690; 84703; 85025; 87661; 87810; 87850; 93976; 96361; 96374; 96375; 99284; J1885; J2405; J2550

== ENCOUNTER → 2023-07-28 | Outpatient (REF) | payer OTHER, MEDICAID ==
[~2023-07-28] MED LIST changes: +METH-1164 PO; +NAPR-837 PO; +SEMA0.257 SQ; +TOPI-21 PO; -TOPI-254 PO
[2023-07-28 14:46] LABS: APPEARANCE, URINE CLOUDY (CLEAR); BACTERIA, URINE AUTO 1+ (NEGATIVE); BILIRUBIN, URINE AUTO NEGATIVE (NEGATIVE); BLOOD, URINE BLOOD NEGATIVE (NEGATIVE); COLOR, URINE AMBER (YELLOW); GLUCOSE, URINE (UA) AUTO 3+ mg/dL (NEGATIVE); KETONE, URINE AUTO TRACE mg/dL (NEGATIVE); LEUKOCYTE ESTERASE, URINE AUTO 1+ (NEGATIVE); MUCUS, URINE SMALL (NEGATIVE); NITRITE, URINE AUTO NEGATIVE (NEGATIVE); PROTEIN, URINE AUTO 1+ mg/dL (NEGATIVE); RBC, URINE AUTO 2 /HPF (0-3); SPECIFIC GRAVITY URINE AUTO 1.029 (1.002-1.035); SQUAMOUS EPITHELIAL CELL UR AU 13 /HPF (0-6); UROBILINOGEN, URINE AUTO 0.2 mg/dL (0.0-2.0); WBC, URINE AUTO 8 /HPF (0-3)
[2023-07-28 14:50] LABS: BASO # 0.1 10^3/uL (0.0-0.2); BASO % 0.6 % (0.0-1.0); EOS # 0.3 10^3/uL (0.0-0.5); HEMATOCRIT 37.5 % (36.0-47.0); HEMOGLOBIN 11.5 g/dl (12.0-15.5); LYMPH # 3.6 10^3/uL (1.5-5.0); LYMPH % 31.8 % (24.0-44.0); MEAN CORPUSCULAR HEMOGLOBIN 25.3 pg (27.0-33.0); MEAN CORPUSCULAR HGB CONC 30.7 g/dl (32.0-36.5); MEAN CORPUSCULAR VOLUME 82.6 fl (80.0-96.0); MONO # 0.6 10^3/uL (0.0-0.8); NEUTROPHILS # 6.6 10^3/uL (1.5-8.5); NEUTROPHILS % 58.4 % (36.0-66.0); PLATELET COUNT, AUTOMATED 435 10^3/uL (150-450); RED BLOOD COUNT 4.54 10^6/uL (4.00-5.40); WHITE BLOOD COUNT 11.3 10^3/uL (4.0-10.0)
[2023-07-28 15:05] LABS: ALKALINE PHOSPHATASE 135 U/L (46-116); ALT/SGPT 104 U/L (7.0-40); AST/SGOT 185 U/L (<34); BILIRUBIN,TOTAL 0.4 MG/DL (0.3-1.2); BLOOD UREA NITROGEN 10 MG/DL (9-23); CALCIUM LEVEL 9.2 MG/DL (8.5-10.1); CARBON DIOXIDE LEVEL 25 MMOL/L (20-31); CHLORIDE LEVEL 100 MMOL/L (98-107); CHOLESTEROL LEVEL 321 MG/DL (<200); CHOLESTEROL RISK RATIO 8.65 (<5); CREATININE FOR GFR 0.43 MG/DL (0.55-1.30); GLOMERULAR FILTRATION RATE > 60.0 (>60); GLUCOSE, FASTING 321 MG/DL (60-100); HDL CHOLESTEROL 37.1 MG/DL (>40); NON-HDL-C 283.9 MG/DL; POTASSIUM SERUM 4.2 MMOL/L (3.5-5.1); SODIUM LEVEL 134 MMOL/L (136-145); THYROID STIMULATING HORMONE 9.544 uIU/ML (0.55-4.78); TOTAL PROTEIN 7.5 G/DL (5.7-8.2); TRIGLYCERIDES LEVEL 913 MG/DL (<150)
[2023-07-28 15:22] LABS: HEMOGLOBIN A1c 10.2 % (4.0-6.0)
[2023-07-28 15:40] LABS: HEPATITIS C VIRUS ABY INDEX < 0.02 INDEX (<0.8)
== END ==
LOC: M LABDRWAD 12:25
PROVIDERS: ATTEND Family Medicine
DX: E03.9 Hypothyroidism, unspecified (principal); E11.9 Type 2 diabetes mellitus without complications; R94.5 Abnormal results of liver function studies

== ENCOUNTER → 2024-02-01 | Outpatient (REF) | payer OTHER, MEDICAID ==
[~2024-02-01] MED LIST changes: +DIPH1TAB81; -DIPH2.5T15; -KLON1TAB PO; +KLON1TAB13 PO; +ONDA-282 PO; -ONDA4TAB6 PO
[2024-02-01 14:11] LABS: HEMOGLOBIN A1c 9.2 % (4.0-6.0)
[2024-02-01 14:23] LABS: ALBUMIN 3.9 G/DL (3.2-5.2); ALKALINE PHOSPHATASE 93 U/L (46-116); ALT/SGPT 104 U/L (7.0-40); AST/SGOT 193 U/L (<34); BILIRUBIN,TOTAL 0.4 MG/DL (0.3-1.2); BLOOD UREA NITROGEN 10 MG/DL (9-23); CALCIUM LEVEL 9.5 MG/DL (8.5-10.1); CARBON DIOXIDE LEVEL 24 MMOL/L (20-31); CHLORIDE LEVEL 101 MMOL/L (98-107); CHOLESTEROL LEVEL 312 MG/DL (<200); CHOLESTEROL RISK RATIO 10.87 (<5); CREATININE FOR GFR 0.47 MG/DL (0.55-1.30); FREE T4 1.44 NG/DL (0.89-1.76); GLOMERULAR FILTRATION RATE > 60.0 (>60); GLUCOSE, FASTING 250 MG/DL (60-100); HDL CHOLESTEROL 28.7 MG/DL (>40); NON-HDL-C 283.3 MG/DL; SODIUM LEVEL 135 MMOL/L (136-145); TOTAL PROTEIN 7.4 G/DL (5.7-8.2); TRIGLYCERIDES LEVEL 684 MG/DL (<150)
[2024-02-01 14:24] LABS: THYROID STIMULATING HORMONE 9.921 uIU/ML (0.55-4.78)
[2024-02-01 14:26] LABS: TOTAL T3 114.9 NG/DL (60.0-181.0)
[2024-02-01 14:27] LABS: FREE T3 2.5 PG/ML (2.3-4.2)
== END ==
LOC: M LABDRWAD 13:07
PROVIDERS: ATTEND Student in an Organized Health Care Education/Training Program
DX: E03.9 Hypothyroidism, unspecified (principal); E11.9 Type 2 diabetes mellitus without complications

== ENCOUNTER → 2024-03-09 | Outpatient (CLI) | payer MEDICARE, MEDICAID ==
[2024-03-09 19:39] LABS: CREATININE, URINE 143.3 MG/DL
[2024-03-09 19:40] LABS: MALB URINE SIEMENS < 3.0 MG/L
[2024-03-13 23:53] LABS: GAD-65 AUTOANTIBODY < 5 IU/mL (<5)
[2024-03-24 05:53] LABS: ZNT8 ABS < 10 U/mL (<15)
== END ==
LOC: M PLALAB 15:21
PROVIDERS: ATTEND Nurse Practitioner Family
DX: E11.65 Type 2 diabetes mellitus with hyperglycemia (principal)

== ENCOUNTER → 2024-05-31 | Outpatient (CLI) | payer MEDICARE, MEDICAID ==
[2024-05-31 14:48] LABS: ALBUMIN 4.3 G/DL (3.2-5.2); ALKALINE PHOSPHATASE 72 U/L (35-104); ALT/SGPT 123 U/L (7.0-40); AST/SGOT 119 U/L (<34); BILIRUBIN,TOTAL 0.4 MG/DL (0.3-1.2); BLOOD UREA NITROGEN 12 MG/DL (9-23); CALCIUM LEVEL 10.1 MG/DL (8.5-10.1); CARBON DIOXIDE LEVEL 23 MMOL/L (20-31); CHLORIDE LEVEL 107 MMOL/L (98-107); CHOLESTEROL LEVEL 342 MG/DL (<200); CHOLESTEROL RISK RATIO 8.12 (<5); CREATININE FOR GFR 0.56 MG/DL (0.55-1.30); GLOMERULAR FILTRATION RATE > 60.0 (>60); GLUCOSE, FASTING 169 MG/DL (60-100); HDL CHOLESTEROL 42.1 MG/DL (>40); LDL CHOLESTEROL 227.5 MG/DL (<100); NON-HDL-C 299.9 MG/DL; POTASSIUM SERUM 4.1 MMOL/L (3.5-5.1); SODIUM LEVEL 138 MMOL/L (136-145); TOTAL PROTEIN 7.7 G/DL (5.7-8.2); TRIGLYCERIDES LEVEL 362 MG/DL (<150)
[2024-05-31 14:49] LABS: THYROID STIMULATING HORMONE 1.663 uIU/ML (0.55-4.78)
[2024-05-31 14:52] LABS: FREE T3 2.5 PG/ML (2.3-4.2); TOTAL T3 99.4 NG/DL (60.0-181.0)
== END ==
LOC: M PLALAB 10:00
PROVIDERS: ATTEND Family Medicine
DX: E11.9 Type 2 diabetes mellitus without complications (principal); E03.9 Hypothyroidism, unspecified

== ENCOUNTER → 2024-08-02 | Outpatient (REF) | payer MEDICARE, MEDICAID | LOC: M LAB REF 16:12 | PROVIDERS: ATTEND Physician Assistant | DX: N39.0 Urinary tract infection, site not specified (principal) ==

== ENCOUNTER → 2024-10-31 | Outpatient (CLI) | payer MEDICARE, MEDICAID ==
[~2024-10-31] MED LIST changes: +GLIP-318 PO; +GLIP-320 PO; -GLIP10TA18 PO; -GLIP5TAB20 PO; +PREG-35 PO; -PREG100CA PO; +TOPI-257 PO; -TOPI100T9 PO
[2024-10-31 13:58] LABS: THYROID STIMULATING HORMONE 0.635 uIU/ML (0.55-4.78)
[2024-10-31 13:59] LABS: FREE T4 1.42 NG/DL (0.89-1.76)
[2024-10-31 14:00] LABS: ALBUMIN 4.5 G/DL (3.2-5.2); ALKALINE PHOSPHATASE 69 U/L (35-104); ALT/SGPT 75 U/L (7.0-40); AST/SGOT 45 U/L (<34); BILIRUBIN,TOTAL 0.4 MG/DL (0.3-1.2); BLOOD UREA NITROGEN 14 MG/DL (9-23); CALCIUM LEVEL 9.9 MG/DL (8.5-10.1); CARBON DIOXIDE LEVEL 22 MMOL/L (20-31); CHLORIDE LEVEL 103 MMOL/L (98-107); CHOLESTEROL LEVEL 287 MG/DL (<200); CHOLESTEROL RISK RATIO 7.12 (<5); CREATININE FOR GFR 0.52 MG/DL (0.55-1.30); GLOMERULAR FILTRATION RATE > 90.0 (>60); GLUCOSE, FASTING 136 MG/DL (60-100); HDL CHOLESTEROL 40.3 MG/DL (>40); LDL CHOLESTEROL 183.5 MG/DL (<100); NON-HDL-C 246.7 MG/DL; SODIUM LEVEL 137 MMOL/L (136-145); TOTAL PROTEIN 7.8 G/DL (5.7-8.2); TRIGLYCERIDES LEVEL 316 MG/DL (<150)
== END ==
LOC: M PLALAB 10:39
PROVIDERS: ATTEND Nurse Practitioner Family
DX: E78.2 Mixed hyperlipidemia (principal); E03.9 Hypothyroidism, unspecified

== ENCOUNTER → 2024-10-31 | Outpatient (CLI) | payer MEDICARE, MEDICAID ==
[2024-10-31 14:07] LABS: ALBUMIN 4.5 G/DL (3.2-5.2); ALKALINE PHOSPHATASE 68 U/L (35-104); ALT/SGPT 76 U/L (7.0-40); AST/SGOT 43 U/L (<34); BILIRUBIN,TOTAL 0.4 MG/DL (0.3-1.2); BLOOD UREA NITROGEN 15 MG/DL (9-23); CALCIUM LEVEL 9.8 MG/DL (8.5-10.1); CARBON DIOXIDE LEVEL 22 MMOL/L (20-31); CHLORIDE LEVEL 103 MMOL/L (98-107); CHOLESTEROL LEVEL 285 MG/DL (<200); CHOLESTEROL RISK RATIO 6.86 (<5); CREATININE FOR GFR 0.53 MG/DL (0.55-1.30); FREE T3 2.8 PG/ML (2.3-4.2); GLOMERULAR FILTRATION RATE > 90.0 (>60); GLUCOSE, FASTING 137 MG/DL (60-100); HDL CHOLESTEROL 41.5 MG/DL (>40); LDL CHOLESTEROL 182.5 MG/DL (<100); NON-HDL-C 243.5 MG/DL; POTASSIUM SERUM 4.1 MMOL/L (3.5-5.1); SODIUM LEVEL 138 MMOL/L (136-145); THYROID STIMULATING HORMONE 0.588 uIU/ML (0.55-4.78); TOTAL PROTEIN 7.8 G/DL (5.7-8.2); TOTAL T3 85.8 NG/DL (60.0-181.0); TRIGLYCERIDES LEVEL 305 MG/DL (<150)
== END ==
LOC: M PLALAB 10:37
PROVIDERS: ATTEND Family Medicine
DX: E11.9 Type 2 diabetes mellitus without complications (principal); E03.9 Hypothyroidism, unspecified; E78.2 Mixed hyperlipidemia

== ENCOUNTER → 2025-06-07 | Outpatient (REF) | payer MEDICARE, OTHER, MEDICAID ==
[2025-06-07 16:57] LABS: ESTIMATED AVERAGE GLUCOSE 137.0 MG/DL (60-110)
== END ==
LOC: M PLALAB 15:45
PROVIDERS: ATTEND Nurse Practitioner Family
DX: E11.65 Type 2 diabetes mellitus with hyperglycemia (principal)